=== PATIENT | female | born 1985 | race Caucasian/White ===

== ENCOUNTER 2021-02-23 20:47 | Inpatient (IN) | payer SELFPAY ==
[2021-02-23 21:00] VITALS: BP 132/70; PULSE 139; RESP 22; TEMP 36.8; O2SAT 96; BMI 23.0
--- NOTE | 2021-02-23 21:42 | ED_ITS ---
HPI - Abdominal Pain General: Chief Complaint: Abdominal Pain Stated Complaint: Adominal Pains, Vomiting Leg Pains Time Seen by Provider: 02/23/21 21:26 History of Present Illness: HPI narrative: Patient is a 35-year-old female comes to the ED with abdominal pain, nausea and vomiting. Patient says abdominal pain started approximately 3 days ago. Her nausea and vomiting got severe today and she was unable to keep any p.o. food or fluids down. The abdominal pain is located in the right and left upper part of the abdomen. The pain radiates to the middle of her back as well. She rates her pain currently a 10 out of 10. Denies any past surgical history of the abdomen. She does endorse being constipated and says that she has not had a bowel movement in approximately 3 to 4 days. Patient does admit to being a heavy alcohol drinker. Patient says she drinks approximately 1/5 of whiskey every 2 days. She says she has not had a drink of alcohol for approximately 2 days. Associated Symptoms: Reports constipation, nausea and vomiting; Denies chills, diarrhea, dysuria, fever(s), hematochezia and hematuria Review of Systems Const: Denies: fever(s), chills or fatigue Eyes: Denies: change in vision or eye discomfort ENMT: Denies: throat pain, odynophagia, nasal discharge or nasal congestion Card: Denies: chest pain, palpitations, edema, swelling of feet/ankles, dyspnea on exertion or orthopnea Resp: Denies: dyspnea, productive cough or non-productive cough GI: Reports: abdominal pain, nausea, vomiting and constipation; Denies: diarrhea or hematochezia : Denies: flank pain, dysuria or hematuria Musc: Denies: neck pain, back pain or extremity swelling Skin/Breast: Denies: rash or new lesions Neuro: Denies: headache(s), numbness in extremities or weakness in extremities PFSH ED PFSH: Medical History Alcohol abuse Surgical History No pertinent past surgical history Family History Brother Liver failure Social History Smoking and tobacco status: current every day smoker Alcohol intake: current Alcohol intake frequency: 3 or more drinks per day Alcohol type: hard liquor Substance/Drug Use: current Substance/Drug use type: Marijuana Household members: significant other Housing: House 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, [employer] Physical Exam Const: COMMON NORMALS: patient oriented x3 and alert GENERAL APPEARANCE: cooperative and ill appearing (Patient appears ill and had just had an episode of emesis when I enter the ) HENMT: COMMON NORMALS: normocephalic HEAD & SCALP: normocephalic MOUTH: Normal oral and palatal mucosa present THROAT: posterior oropharynx normal and uvula midline Eye: COMMON NORMALS: Equal, round and reactive pupils present PUPIL: Yes Equal, round and reactive pupils present Neck/C-Spine: COMMON NORMALS: supple GENERAL: Yes normal visual inspection Resp: COMMON NORMALS: normal respiratory effort, No retractions, No use of accessory muscles and clear to auscultation bilaterally AUSCULTATION: clear to auscultation bilaterally Cardio: COMMON NORMALS: regular rate, regular rhythm, S1 normal heart sound present, S2 normal heart sound present, No gallops present (Cardio), No clicks present (Cardio), No murmurs present (Cardio) and Peripheral pulses 2+ throughout RATE: regular rate RHYTHM: regular rhythm HEART SOUNDS: S1 normal heart sound present and S2 normal heart sound present PERIPHERAL PULSES: Peripheral pulses 2+ throughout GI: COMMON NORMALS: Normal to inspection, nondistended, normoactive bowel sounds present, Soft to palpation and no masses PALPATION: Yes Soft to palpation and Yes Tenderness to palpation present (GI) Details: LUQ and RUQ : BLADDER/KIDNEY EXAM: Yes CVA tenderness on the right (mild) Back/Pelvis: GENERAL BACK: Yes CVA tenderness Extremity: COMMON NORMALS: normal to inspection and no pedal edema Neuro: COMMON NORMALS: patient oriented x3 SENSORIUM/ORIENTATION: Yes alert GAIT: Yes Normal gait present Skin: GENERAL SKIN EXAM: dry skin Course Consultations: Consultation #1: I contacted Dr. Landeros and told him about patient case and he agreed to have patient admitted. Vital Signs: Vital signs: Vital Signs Temperature 97.3 F L 02/24/21 01:30 Pulse Rate 125 H 02/24/21 01:30 Respiratory Rate 20 H 02/24/21 01:30 Blood Pressure 143/99 02/24/21 01:30 Pulse Oximetry 97 02/24/21 01:30 MDM - Abdominal Pain MDM Narrative: Medical decision making narrative: Patient is a 35-year-old female comes to the ED with abdominal pain, nausea and vomiting. Patient has a history of alcohol abuse says she drinks about 1/5 of whiskey every 2 days. Abdominal pain is in the upper part of the abdomen and radiates to her back. Patient had a bicarb of 8 and an anion gap of 42.4. the rest of CBC and CMP were unremarkable. Lipase 4398. ABG showed a blood pH of 7.14 and bicarb of 14.3. CT of abdomen pelvis showed acute pancreatitis. Lactic of 1.9. Dr. Franklin was involved with patient case with me due to acuity. I contacted the hospitalist and told about patient case and patient was admitted. Dr. Franklin placed the admitting orders. Lab Data: Attestation: I reviewed the patient's lab results. Labs: Lab Results 02/23/21 02/23/21 02/23/21 Range/Units 21:33 21:38 21:38 WBC 8.2 (4.0-10.0) 10^3/ uL RBC 4.46 (4.1-5.3) 10^6/u L Hgb 16.3 H (11.5-15.3) g/dL Hct 50.6 H (37.0-47.0) % MCV 113.5 H (81-99) fL MCH 36.5 H (28.0-34.0) pg MCHC 32.2 (30.0-36.0) g/dL RDW 13.0 (12.1-15.1) % Plt Count 137 (130-400) 10^3/c mm MPV 11.6 H (7.4-10.4) fL Neut % (Auto) 82.4 % Lymph % (Auto) 7.0 % [place] % (Auto) 8.1 % Eos % (Auto) 0.0 % Baso % (Auto) 0.9 % Neut # (Auto) 6.75 (1.8-7.7) 10^3/u L Lymph # (Auto) 0.6 L (0.8-4.8) 10^3/u L [place] # (Auto) 0.7 (0.2-0.9) 10^3/u L Eos # (Auto) 0.0 (0.0-0.8) 10^3/u L Baso # (Auto) 0.1 (0.0-0.1) 10^3/u L Nucleated RBC % (a uto) 0 % Nucleated RBCs # 0.0 /100WBC Specimen Type Sample Site ABG pH (7.35-7.45) ABG pCO2 (35-45) mmHg ABG pO2 (80.0-100.0) mmH g ABG HCO3 (22-26) mmol/L ABG O2 Saturation ABG Base Excess (-2.0-2.0) mmol/ L Jonathan Test A-a O2 Gradient (5-10) mmHg Hematocrit (37-47) % Hgb O2 Saturation (95-100) % Carboxyhemoglobin (0.4-20.1) %THgb Methemoglobin (0.4-1.5) % Total Hemoglobin (12-16) g/dL Ionized Calcium (1.1-1.4) mmol/L O2 Delivery Device Artificial Stone Setter ID Sodium Cancelled Potassium Cancelled Chloride Cancelled Carbon Dioxide Cancelled Anion Gap Cancelled BUN Cancelled Creatinine Cancelled GFR Calculation Cancelled Glucose Cancelled Calculated Osmolal ity Cancelled Lactic Acid (0.5-2.2) mmol/L Calcium Cancelled Total Bilirubin Cancelled AST Cancelled ALT Cancelled Alkaline Phosphata se Cancelled Total Protein Cancelled Albumin Cancelled Globulin Cancelled Lipase Cancelled HCG, Qual Urine Color Yellow (Yellow) Urine Appearance Clear (CLEAR) Urine pH 5 (5-7) Ur Specific Gravit y 1.025 (1.005-1.030) Urine Protein 2+ H (Negative) Urine Glucose (UA) Norm (Normal) Urine Ketones 3+ H (Negative) Urine Blood 3+ H (Negative) Urine Nitrate Negative (Negative) Urine Bilirubin 1+ H (Negative) Urine Urobilinogen 1 H (Negative) mg/dL Ur Leukocyte Dina ase 1+ H (Negative) Urine RBC 0-4 H (0-2) /hpf Urine WBC 0-4 H (0-5) /hpf Ur Squamous Epith Cells 10-15 H (0-5) /hpf Amorphous Sediment Not Reportable Urine Bacteria 1+ H (NONE) /hpf Hyaline Casts 10-15 H /lpf Urine Mucus Trace /hpf Ethyl Alcohol (0-10) mg/dL Serum Ketones (Negative) 02/23/21 02/23/21 02/23/21 Range/Units 21:38 21:59 21:59 WBC (4.0-10.0) 10^3/ uL RBC (4.1-5.3) 10^6/u L Hgb (11.5-15.3) g/dL Hct (37.0-47.0) % MCV (81-99) fL MCH (28.0-34.0) pg MCHC (30.0-36.0) g/dL RDW (12.1-15.1) % Plt Count (130-400) 10^3/c mm MPV (7.4-10.4) fL Neut % (Auto) % Lymph % (Auto) % [place] % (Auto) % Eos % (Auto) % Baso % (Auto) % Neut # (Auto) (1.8-7.7) 10^3/u L Lymph # (Auto) (0.8-4.8) 10^3/u L [place] # (Auto) (0.2-0.9) 10^3/u L Eos # (Auto) (0.0-0.8) 10^3/u L Baso # (Auto) (0.0-0.1) 10^3/u L Nucleated RBC % (a uto) % Nucleated RBCs # /100WBC Specimen Type Sample Site ABG pH (7.35-7.45) ABG pCO2 (35-45) mmHg ABG pO2 (80.0-100.0) mmH g ABG HCO3 (22-26) mmol/L ABG O2 Saturation ABG Base Excess (-2.0-2.0) mmol/ L Jonathan Test A-a O2 Gradient (5-10) mmHg Hematocrit (37-47) % Hgb O2 Saturation (95-100) % Carboxyhemoglobin (0.4-20.1) %THgb Methemoglobin (0.4-1.5) % Total Hemoglobin (12-16) g/dL Ionized Calcium (1.1-1.4) mmol/L O2 Delivery Device Artificial Stone Setter ID Sodium 135 L Potassium 4.4 Chloride 89 L Carbon Dioxide 8 L* Anion Gap 42.4 H BUN 8 Creatinine 1.0 H GFR Calculation 62.7 L Glucose 91 Calculated Osmolal ity 278 L Lactic Acid (0.5-2.2) mmol/L Calcium 10.4 Total Bilirubin 1.3 H AST 130 H ALT 73 H Alkaline Phosphata se 74 Total Protein 8.6 Albumin 5.4 H Globulin 3.2 Lipase 4398 H HCG, Qual Cancelled Negative Urine Color (Yellow) Urine Appearance (CLEAR) Urine pH (5-7) Ur Specific Gravit y (1.005-1.030) Urine Protein (Negative) Urine Glucose (UA) (Normal) Urine Ketones (Negative) Urine Blood (Negative) Urine Nitrate (Negative) Urine Bilirubin (Negative) Urine Urobilinogen (Negative) mg/dL Ur Leukocyte Dina ase (Negative) Urine RBC (0-2) /hpf Urine WBC (0-5) /hpf Ur Squamous Epith Cells (0-5) /hpf Amorphous Sediment Urine Bacteria (NONE) /hpf Hyaline Casts /lpf Urine Mucus /hpf Ethyl Alcohol (0-10) mg/dL Serum Ketones (Negative) 02/23/21 02/23/21 02/23/21 Range/Units 21:59 21:59 22:40 WBC (4.0-10.0) 10^3/ uL RBC (4.1-5.3) 10^6/u L Hgb (11.5-15.3) g/dL Hct (37.0-47.0) % MCV (81-99) fL MCH (28.0-34.0) pg MCHC (30.0-36.0) g/dL RDW (12.1-15.1) % Plt Count (130-400) 10^3/c mm MPV (7.4-10.4) fL Neut % (Auto) % Lymph % (Auto) % [place] % (Auto) % Eos % (Auto) % Baso % (Auto) % Neut # (Auto) (1.8-7.7) 10^3/u L Lymph # (Auto) (0.8-4.8) 10^3/u L [place] # (Auto) (0.2-0.9) 10^3/u L Eos # (Auto) (0.0-0.8) 10^3/u L Baso # (Auto) (0.0-0.1) 10^3/u L Nucleated RBC % (a uto) % Nucleated RBCs # /100WBC Specimen Type Arterial Sample Site Radial, right ABG pH 7.14 L* (7.35-7.45) ABG pCO2 14.3 L* (35-45) mmHg ABG pO2 122.0 H (80.0-100.0) mmH g ABG HCO3 4.9 L (22-26) mmol/L ABG O2 Saturation 98.4 ABG Base Excess -21.8 L (-2.0-2.0) mmol/ L Jonathan Test Pos A-a O2 Gradient 0.9 L (5-10) mmHg Hematocrit 42.2 (37-47) % Hgb O2 Saturation 96.9 (95-100) % Carboxyhemoglobin 0.8 (0.4-20.1) %THgb Methemoglobin 0.7 (0.4-1.5) % Total Hemoglobin 13.8 (12-16) g/dL Ionized Calcium 1.3 (1.1-1.4) mmol/L O2 Delivery Device Room air Artificial Stone Setter ID [place] Sodium 140.0 Potassium 4.4 Chloride Carbon Dioxide Anion Gap BUN Creatinine GFR Calculation Glucose 86.0 Calculated Osmolal ity Lactic Acid (0.5-2.2) mmol/L Calcium Total Bilirubin AST ALT Alkaline Phosphata se Total Protein Albumin Globulin Lipase HCG, Qual Urine Color (Yellow) Urine Appearance (CLEAR) Urine pH (5-7) Ur Specific Gravit y (1.005-1.030) Urine Protein (Negative) Urine Glucose (UA) (Normal) Urine Ketones (Negative) Urine Blood (Negative) Urine Nitrate (Negative) Urine Bilirubin (Negative) Urine Urobilinogen (Negative) mg/dL Ur Leukocyte Dina ase (Negative) Urine RBC (0-2) /hpf Urine WBC (0-5) /hpf Ur Squamous Epith Cells (0-5) /hpf Amorphous Sediment Urine Bacteria (NONE) /hpf Hyaline Casts /lpf Urine Mucus /hpf Ethyl Alcohol < 10 (0-10) mg/dL Serum Ketones Positive H (Negative) 02/23/21 Range/Units 23:14 WBC (4.0-10.0) 10^3/ uL RBC (4.1-5.3) 10^6/u L Hgb (11.5-15.3) g/dL Hct (37.0-47.0) % MCV (81-99) fL MCH (28.0-34.0) pg MCHC (30.0-36.0) g/dL RDW (12.1-15.1) % Plt Count (130-400) 10^3/c mm MPV (7.4-10.4) fL Neut % (Auto) % Lymph % (Auto) % [place] % (Auto) % Eos % (Auto) % Baso % (Auto) % Neut # (Auto) (1.8-7.7) 10^3/u L Lymph # (Auto) (0.8-4.8) 10^3/u L [place] # (Auto) (0.2-0.9) 10^3/u L Eos # (Auto) (0.0-0.8) 10^3/u L Baso # (Auto) (0.0-0.1) 10^3/u L Nucleated RBC % (a uto) % Nucleated RBCs # /100WBC Specimen Type Sample Site ABG pH (7.35-7.45) ABG pCO2 (35-45) mmHg ABG pO2 (80.0-100.0) mmH g ABG HCO3 (22-26) mmol/L ABG O2 Saturation ABG Base Excess (-2.0-2.0) mmol/ L Jonathan Test A-a O2 Gradient (5-10) mmHg Hematocrit (37-47) % Hgb O2 Saturation (95-100) % Carboxyhemoglobin (0.4-20.1) %THgb Methemoglobin (0.4-1.5) % Total Hemoglobin (12-16) g/dL Ionized Calcium (1.1-1.4) mmol/L O2 Delivery Device Artificial Stone Setter ID Sodium Potassium Chloride Carbon Dioxide Anion Gap BUN Creatinine GFR Calculation Glucose Calculated Osmolal ity Lactic Acid 1.9 (0.5-2.2) mmol/L Calcium Total Bilirubin AST ALT Alkaline Phosphata se Total Protein Albumin Globulin Lipase HCG, Qual Urine Color (Yellow) Urine Appearance (CLEAR) Urine pH (5-7) Ur Specific Gravit y (1.005-1.030) Urine Protein (Negative) Urine Glucose (UA) (Normal) Urine Ketones (Negative) Urine Blood (Negative) Urine Nitrate (Negative) Urine Bilirubin (Negative) Urine Urobilinogen (Negative) mg/dL Ur Leukocyte Dina ase (Negative) Urine RBC (0-2) /hpf Urine WBC (0-5) /hpf Ur Squamous Epith Cells (0-5) /hpf Amorphous Sediment Urine Bacteria (NONE) /hpf Hyaline Casts /lpf Urine Mucus /hpf Ethyl Alcohol (0-10) mg/dL Serum Ketones (Negative) Imaging Data ^: CT Abd/Pel: Attestation: I personally reviewed and interpreted this imaging study as follows: Radiologist's impression: [facility] [place] [address] CT Scan Report Signed Patient: Raquel Govea Unit #: [id number] : 1985 Age/Sex: 35 / F ADM Date: 02/23/21 Loc: ER Room/Bed: Attending Dr: Ordering Provider/Ordering MD: London León Date of Service: 02/23/21 Procedure(s): CT abdomen pelvis w con* [id number] Accession Number(s): [id number] Report Number: [id number] PROCEDURE INFORMATION: Exam: CT Abdomen And Pelvis With Contrast Exam date and time: 02/23/2021 9:49 PM Age: 35 years old Clinical indication: Constipation and nausea and vomiting; Abdominal pain; Localized; Upper; Additional info: Upper abdominal pain with nausea vomiting, constipation TECHNIQUE: Imaging protocol: Computed tomography of the abdomen and pelvis with contrast. Axial, coronal and sagittal reformatted images were created and reviewed. Radiation optimization: All CT scans at this facility use at least one of these dose optimization techniques: automated exposure control; mA and/or kV adjustment per patient size (includes targeted exams where dose is matched to clinical indication); or iterative reconstruction. Contrast material: OMNI 300; Contrast volume: 75 ml; Contrast route: INTRAVENOUS (IV); COMPARISON: No relevant prior studies available. RADIATION DOSE METRICS: Total DLP (mGy-cm): 929.81 FINDINGS: Liver: Diffuse hepatic steatosis. Gallbladder and bile ducts: No radiodense gallstones. No biliary ductal dilatation. Pancreas: Moderate peripancreatic stranding, edema and fluid. No necrosis or hemorrhage. Spleen: Unremarkable. Adrenal glands: Normal. No mass. Kidneys and ureters: No mass. No radiodense calculi. No hydronephrosis. Stomach and bowel: No bowel wall thickening. No obstruction. No pneumatosis. Appendix: Normal. Intraperitoneal space: No free fluid. No organized fluid collection. No free air. Vasculature: Unremarkable. No aneurysm. Lymph nodes: No pathologically enlarged lymph nodes. Urinary bladder: Unremarkable as visualized. Reproductive: Probable involuting left ovarian corpus luteal cyst. Bones/joints: No acute osseous abnormality. Soft tissues: Unremarkable. CT/CT abdomen pelvis w con* [id number] IMPRESSION: 1. Acute pancreatitis, as described above. Correlate with serum amylase and lipase levels. No drainable fluid collection. No necrosis or hemorrhage. 2. Additional findings, as above. Radiation Dose CTDIVOL = (mGy): DLP = 929.81 (mGy-cm) Dictated By: Spenser Rollins MD Signed By: Spenser Rollins MD Signed Date/Time: 02/23/212313 DD/ 11 Discharge Plan Discharge Patient Disposition: Admitted As Inpatient Admit Provider: Renetta Landeros Coding Level of Care Code ED Florist for Chg Fwd Exam Comprehensive
[2021-02-23 21:46] LABS: Basophils # 0.1 10^3/uL (0.0-0.1); Basophils % 0.9 %; Hematocrit 50.6 % (37.0-47.0); Hemoglobin 16.3 g/dL (11.5-15.3); Lymphocytes # 0.6 10^3/uL (0.8-4.8); Mean Corpuscular HGB Conc 32.2 g/dL (30.0-36.0); Mean Corpuscular Hemoglobin 36.5 pg (28.0-34.0); Mean Corpuscular Volume 113.5 fL (81-99); Mean Platelet Volume 11.6 fL (7.4-10.4); Monocytes # 0.7 10^3/uL (0.2-0.9); Monocytes % 8.1 %; Neutrophils # 6.75 10^3/uL (1.8-7.7); Neutrophils % 82.4 %; Nucleated Red Blood Cells % 0 %; Platelet Count 137 10^3/cmm (130-400); Red Blood Count 4.46 10^6/uL (4.1-5.3); White Blood Count 8.2 10^3/uL (4.0-10.0)
--- NOTE | 2021-02-23 21:49 | CTR_ITS ---
PROCEDURE INFORMATION: Exam: CT Abdomen And Pelvis With Contrast Exam date and time: 02/23/2021 9:49 PM Age: 35 years old Clinical indication: Constipation and nausea and vomiting; Abdominal pain; Localized; Upper; Additional info: Upper abdominal pain with nausea vomiting, constipation TECHNIQUE: Imaging protocol: Computed tomography of the abdomen and pelvis with contrast. Axial, coronal and sagittal reformatted images were created and reviewed. Radiation optimization: All CT scans at this facility use at least one of these dose optimization techniques: automated exposure control; mA and/or kV adjustment per patient size (includes targeted exams where dose is matched to clinical indication); or iterative reconstruction. Contrast material: OMNI 300; Contrast volume: 75 ml; Contrast route: INTRAVENOUS (IV); COMPARISON: No relevant prior studies available. RADIATION DOSE METRICS: Total DLP (mGy-cm): 929.81 FINDINGS: Liver: Diffuse hepatic steatosis. Gallbladder and bile ducts: No radiodense gallstones. No biliary ductal dilatation. Pancreas: Moderate peripancreatic stranding, edema and fluid. No necrosis or hemorrhage. Spleen: Unremarkable. Adrenal glands: Normal. No mass. Kidneys and ureters: No mass. No radiodense calculi. No hydronephrosis. Stomach and bowel: No bowel wall thickening. No obstruction. No pneumatosis. Appendix: Normal. Intraperitoneal space: No free fluid. No organized fluid collection. No free air. Vasculature: Unremarkable. No aneurysm. Lymph nodes: No pathologically enlarged lymph nodes. Urinary bladder: Unremarkable as visualized. Reproductive: Probable involuting left ovarian corpus luteal cyst. Bones/joints: No acute osseous abnormality. Soft tissues: Unremarkable. CT/CT abdomen pelvis w con* [id number] IMPRESSION: 1. Acute pancreatitis, as described above. Correlate with serum amylase and lipase levels. No drainable fluid collection. No necrosis or hemorrhage. 2. Additional findings, as above. Radiation Dose CTDIVOL = (mGy): DLP = 929.81 (mGy-cm)
[2021-02-23 21:59] LABS: Add Urine Culture? No; Add Urine Microscopic? YES; Bacteria Urine 1+ /hpf; Bilirubin Urine 1+ (Negative); Blood Urine 3+ (Negative); Glucose Urine UA Norm (Normal); Ketones Urine 3+ (Negative); Leukocyte Esterase Urine 1+ (Negative); Mucus Urine TRACE /hpf; Nitrate Urine Negative (Negative); Protein Urine 2+ (Negative); RBC Urine 0-4 /hpf (0-2); Specific Gravity, Urine 1.025 (1.005-1.030); Urine Appearance Clear (CLEAR); Urine Color Yellow (Yellow); Urobilinogen Urine 1 mg/dL (Negative); WBC Urine 0-4 /hpf (0-5); pH Urine 5 (5-7)
[2021-02-23] MEDS: sodium chloride 0.9% 1,000 ML 999 ML IV ×2 (21:59→22:57)
[2021-02-23] MEDS: ondansetron 2 mg/ML SDV 2 mL 4 MG IVP (21:59)
[2021-02-23 22:01] VITALS: RESP 22
[2021-02-23] MEDS: morphine 4 mg/mL SDV 1 mL IVP ×2 (22:01→23:05)
[2021-02-23 22:17] LABS: HCG, Serum Qual Negative (Negative)
[2021-02-23 22:25] LABS: Alanine Aminotransferase 73 U/L (0-33); Albumin Level 5.4 g/dL (3.5-5.2); Alkaline Phosphatase 74 IU/L (35-105); Anion Gap 42.4 (5-19); Aspartate Amino Transferase 130 U/L (0-32); Blood Urea Nitrogen 8 mg/dL (6-20); Calcium 10.4 mg/dL (8.5-10.5); Chloride 89 mmol/L (98-107); Globulin 3.2 g/dL (1.3-4.6); Glomerular Filtration Rate 62.7 mL/min (90-130); Glucose 91 mg/dL (65-115); Osmolality Calculated 278 mOsm/kg (285-295); Potassium 4.4 mmol/L (3.5-5.1); Sodium 135 mmol/L (136-145); Total Bilirubin 1.3 mg/dL (0.15-1.2); Total Protein 8.6 g/dL (6.6-8.7)
[2021-02-23 22:29] LABS: Carbon Dioxide 8 mmol/L (22-29)
[2021-02-23] MEDS: iohexol 300 mg/mL 100 mL Btl IV (22:34)
[2021-02-23 22:40] LABS: Lipase 4398 U/L (13-60)
[2021-02-23 22:47] LABS: Alveolar-Arterial Oxygen Gradi 0.9 mmHg (5-10); Arterial Blood Gas Hematocrit 42.2 % (37-47); Base Excess ABG -21.8 mmol/L (-2.0-2.0); Blood Gas Allen Test Pos; Blood Gas Sample Site Radial, right; Blood Gas Sample Type Arterial; Carboxyhemoglobin 0.8 %THgb (0.4-20.1); HCO3 ABG 4.9 mmol/L (22-26); HGB O2 Sat 96.9 % (95-100); Ionized Calcium Level - ABG 1.3 mmol/L (1.1-1.4); Methemoglobin 0.7 % (0.4-1.5); Oxygen Device ROOM AIR; Oxygen Saturation ABG 98.4; Potassium Level - ABG 4.4 mmol/L (3.5-5.0); Total Hemoglobin 13.8 g/dL (12-16)
[2021-02-23 22:48] LABS: ABG PCO2 14.3 mmHg (35-45); ABG PH Result 7.14 (7.35-7.45)
[2021-02-23 23:00] VITALS: BP 162/114; PULSE 102; O2SAT 100
[2021-02-23] MEDS: metoclopramide 5 mg/mL SDV 2 mL 10 MG IVP (23:02)
[2021-02-23 23:05] VITALS: RESP 20
[2021-02-23] MEDS: LORazepam 2 mg/mL INJ 1 mL 1 MG IVP (23:09)
[2021-02-23 23:32] LABS: Lactic Sepsis W/Reflex 1.9 mmol/L (0.5-2.2)
[2021-02-23 23:45] VITALS: BP 137/99; PULSE 107; O2SAT 97
[2021-02-24] VITALS (12 sets, daily range): BP systolic 119–146; BP diastolic 75–99; PULSE 92–125; RESP 16–20; TEMP 36.3–37; O2SAT 95–97
--- NOTE | 2021-02-24 00:03 | PM.HP ---
Providers/Chief Complaint Chief Complaint: Adominal Pains, Vomiting Leg Pains History of Present Illness Raquel Govea is a 35 year old female who does not have significant past medical history presented today with chief complaint of recurrent nausea and vomiting. Patient is stating that she drinks hard liquor/whiskey, 1/5 of the bottle every other night. She has experienced alcohol withdrawal symptoms in the past. She is endorsing family history of alcohol abuse, her brother is suffering from alcohol induced liver failure. She recently moved from [place] to live with her boyfriend, she smokes and does marijuana occasionally. She is endorsing abdominal pain in mid epigastric region and recurrent emesis. She has not been able to eat in last 72 hours. Diagnostics in the ER revealed pancreatitis evident on CT scan with high lipase enzymes on laboratory work-up no hypocalcemia or high BUN noted, no signs of sepsis Review of Systems Const: Reports: body aches and fatigue; Denies: fever(s) Eyes: Denies: change in vision ENMT: Denies: throat pain Card: Denies: chest pain Resp: Denies: dyspnea GI: Reports: abdominal pain, nausea, vomiting and constipation; Denies: dysphagia : Denies: flank pain Musc: Denies: neck pain Skin/Breast: Denies: rash Neuro: Denies: headache(s) Psych: Denies: anxiety Endo: Denies: polyuria Tho/Lymph: Denies: easy bruising All/Imm: Denies: urticaria Medications/Allergies Allergies Allergy/AdvReac Type Severity Reaction Status Date / Time No Known Allergies Allergy Verified 02/23/21 21:07 PFSH Acute PFSH: Medical History Alcohol abuse Surgical History (Updated 02/24/21 @ 01:42 by Renetta Landeros MD) No pertinent past surgical history Family History (Updated 02/24/21 @ 01:43 by Renetta Landeros MD) Brother Liver failure Social History (Updated 02/24/21 @ 01:43 by Renetta Landeros MD) Smoking and tobacco status: current every day smoker Alcohol intake: current Alcohol intake frequency: 3 or more drinks per day Alcohol type: hard liquor Substance/Drug Use: current Substance/Drug use type: Marijuana Household members: significant other Housing: House 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, [employer]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 Vitals/I&O/Wt Last Vital Signs Temp 98.2 F 02/23/21 21:00 Pulse 139 H 02/23/21 21:00 Resp 20 H 02/23/21 23:05 BP 132/70 02/23/21 21:00 Pulse Ox 96 02/23/21 21:00 02/23/21 02/23/21 02/24/21 14:59 22:59 06:59 Intake Total 1000 / 1000 Balance 1000 / 1000 Weight last 48 hrs Weight 57.153 kg Physical Exam Narrative: EXAM NARRATIVE: Young male currently laying comfortably in her bed complaining of midepigastric иван pain asking for ice chips S1, S2 Epigastric tenderness on deep palpation Lower extremity no edema Clinically looks dehydrated Looks lethargic and fatigued EOMI, PERRLA No neurological deficit No joint swelling No sign of cellulitis No acute respite distress no audible stridor or wheezing Data : 02/23/21 21:38 02/23/21 21:59 A&P Assessment and plan (1) Alcohol abuse: Status: Inactive (2) Pancreatitis: Status: Acute (3) Metabolic acidosis: Status: Acute Additional A&P Information Alcohol induced pancreatitis Severe metabolic acidosis secondary to starvation ketosis Monitor for electrolyte abnormality for refeeding syndrome Lipase 4300 I will give her second amp of bicarb N.p.o. Lactated Ringer Dilaudid for analgesia CIWA protocol DVT prophylaxis low risk for DVT, would use SCDs Full code Attestations Medical Necessity Statement*: Anticipating stay in the hospital cross more than 2 midnights for pancreatitis management and alcohol withdrawal Time Spent in Patient Care: (>than 50% of time spent in counselling and/or direct pt care on unit). 30mins Coding Level of Care Code Acute Internet Marketing Analyst for Kamron Dietrich Diagnoses Alcohol abuse F10.10 Pancreatitis K85.90 Metabolic acidosis E87.2
[2021-02-24 00:15] LABS: Ketone (Acetest) Serum Positive (Negative)
[2021-02-24 00:18] LABS: Alcohol Level < 10 mg/dL (0-10)
[2021-02-24] MEDS: dextrose 5%-lactated ringers 1,000 ML 100 ML IV (02:04)
[2021-02-24 03:22] LABS: Amphetamines Screen Urine Negative (Negative); Barbiturates Screen Urine Negative (Negative); Benzodiazepines Screen Urine Negative (Negative); Cocaine Screen Urine Negative (Negative); Opiate Screen Urine Positive (Negative); PCP Screen Urine Negative (Negative); THC Screen Urine Positive (Negative)
[2021-02-24] MEDS: HYDROmorphone 1 mg/mL INJ 1 mL 0.5 MG IVP ×4 (03:42→19:46)
[2021-02-24 06:18] LABS: Basophils % 0.4 %; Hemoglobin 13.4 g/dL (11.5-15.3); Lymphocytes # 0.3 10^3/uL (0.8-4.8); Lymphocytes % 6.4 %; Mean Corpuscular HGB Conc 32.7 g/dL (30.0-36.0); Mean Corpuscular Hemoglobin 36.6 pg (28.0-34.0); Mean Platelet Volume 11.7 fL (7.4-10.4); Monocytes # 0.4 10^3/uL (0.2-0.9); Monocytes % 7.9 %; Neutrophils % 84.2 %; Nucleated Red Blood Cells % 0 %; Platelet Count 83 10^3/cmm (130-400); Red Blood Count 3.66 10^6/uL (4.1-5.3); Red Cell Distribution Width 12.9 % (12.1-15.1); White Blood Count 5.3 10^3/uL (4.0-10.0)
[2021-02-24 06:36] LABS: Alanine Aminotransferase 48 U/L (0-33); Albumin Level 4.2 g/dL (3.5-5.2); Alkaline Phosphatase 52 IU/L (35-105); Anion Gap 26.6 (5-19); Aspartate Amino Transferase 89 U/L (0-32); Blood Urea Nitrogen 6 mg/dL (6-20); Calcium 8.5 mg/dL (8.5-10.5); Carbon Dioxide 14 mmol/L (22-29); Chloride 101 mmol/L (98-107); Globulin 2.9 g/dL (1.3-4.6); Glomerular Filtration Rate 81.2 mL/min (90-130); Glucose 181 mg/dL (65-115); Magnesium 2.1 mg/dL (1.7-2.3); Osmolality Calculated 286 mOsm/kg (285-295); Phosphorus 1.5 mg/dL (2.5-4.5); Potassium 4.6 mmol/L (3.5-5.1); Sodium 137 mmol/L (136-145); Total Bilirubin 0.9 mg/dL (0.15-1.2); Total Protein 7.1 g/dL (6.6-8.7)
[2021-02-24] MEDS: multivitamin therapeutic Tablet 1 TAB PO (08:16)
[2021-02-24] MEDS: folic acid 1 mg Tablet PO (08:16)
[2021-02-24] MEDS: thiamine 100 mg Tablet PO (08:16)
--- NOTE | 2021-02-24 10:49 | PC.CHAP ---
Pastoral Care Encounter/Spiritual Assessment Type of Contact [] Declined compliance aide visit [] Patient/Family/Request visit [] Outpatient visit [] Follow-up visit [] Physician referral [] Code/Alert [x] Routine visit [] Staff referral [] Actively dying [x] Patient sleeping [] Family support [] [] Out of room [] Palliative care [] [] Receiving care in room [] Pre-surgical visit [] Trauma [] Long length of stay [] ICU visit [] Other: Relational/Emotional Strength [] Patient feels connected with others/family/visitors/staff [] Distress [] Loneliness/isolation [] Abandonment Spirituality of Patient [] Person of [place] [] Attends Pentecostal of their [place] [] Believes in Prayer [] Reads Bible or Yarsanism materials [] There are Spiritual issues to be addressed Donkey Doctor Interventions [] Prayer [] Active listening [] Non-anxious presence [] Spiritual/emotional support [] Crisis/trauma care [] Spiritual counseling [] Bereavement support [] Provided bereavement packet [] Provided Bible/devotional materials [] Provided toy/stuffed animal, coloring book to patient or family member [] Provided Communion [] Anointing/[place] [] Salvation [] Completed spiritual assessment [] Other: Impact on Illness or Injury [] Angry [] Fearful [] Anxious [] Often cries [] Exhaustion [] Unable to work [] Unable to attend buddhist [] Unable to walk/stand [] Unable to read [] Unable to drive [] Unable to eat/drink [] Unable to sleep [] Unable to be with family [] Patient intubated [] Other: Summary Time spent with patient
--- NOTE | 2021-02-24 12:53 | P.PN_ITS ---
Subjective Subjective: Interval history: 35-year-old female with a past medical history significant for alcohol abuseWho presented to the hospital with mid epigastric pain, nausea and vomiting.Laboratory work upon arrival showed a WBC of 8.2, hemoglobin of 16.3, hematocrit of 50.6 and platelet count of 137. Sodium 135, potassium 4.4, chloride 89, bicarb 8, BUN 8 and creatinine of 1.0. Lactic acid of 1.9. AST of 130, ALT of 73, total bilirubin of 1.3 and alkaline phosphatase of 74. Lipase was elevated at 4398. Urinalysis showed 3+ ketones, 3+ blood, 1+ leukocyte esterase. Urinary drug screen was positive for opioids and marijuana.CT abdomen pelvis showed moderate joe pancreatic stranding, edema and fluid suggestive of acute pancreatitis.Patient was started on D5 with LR at 100 cc/hour after multiple normal saline boluses, folic acid 1 mg daily and thiamine 100 mg daily. Addition was placed on alcohol withdrawal protocol. Was kept NPO. 02/24/2021 Patient was complaining of mild epigastric pain which had improved however still requiring IV pain meds. Noted mild nausea however no emesis today. No fever or chills overnight. Denies chest pain and shortness of breath. Medications: Reviewed: Yes Vitals/I&O/Wt Last Vital Signs Temp 97.8 F 02/24/21 11:18 Pulse 99 02/24/21 11:18 Resp 18 02/24/21 11:18 BP 134/83 02/24/21 11:18 Pulse Ox 97 02/24/21 11:18 02/23/21 02/24/21 02/24/21 22:59 06:59 14:59 Intake Total 1000 / 1000 1060 / 2060 Output Total 400 / 400 Balance 1000 / 1000 660 / 1660 Weight last 48 hrs Weight 57.153 kg Physical Exam Narrative: EXAM NARRATIVE: General :Awake, alert and oriented x3 HEENT: Grossly unremarkable CVS: RRR Chest: CTABL Abd: Soft, mid-epigastric tenderness Ext : No edema , FROM x 4. No gait abnormality Data : 02/24/21 05:11 02/24/21 05:11 A&P Assessment and plan (1) Acute alcoholic pancreatitis: Status: Acute (2) Alcoholic ketoacidosis: Status: Acute (3) Alcoholism: Status: Acute (4) Transaminitis: Status: Acute (5) Thrombocytopenia: Status: Acute Acute alcoholic pancreatitis Lipase 4398 CT abd/pelvis -mod peripancreatic stranding, edema, fluid Continue IV fluid - change to NS at 125cc/hr Repeat CMP, lipase in a.m. Remain NPO Dilaudid 0.5 mg IV q.4 hours Alcoholic ketoacidosis Continue IVF Repeat BMP in am Alcoholism Risk for withdrawals On CIWA/Ativan Protocol Folate 1 mg PO daily Thiamine 100 mg PO daily MV 1 tab PO daily Transaminitis probable alcoholic liver disease AST - 130 ALT - 73 ALP - 74 Thrombocytopenia Platelets - 137 - 83 Likely due to liver disease Bleeding precautions CBC in am GI ppx Pepcid 20mg IV BID DVT ppx SCDS Attestations 2 Medical Necessity Statement*: Require further hospitalization for management of Acute pancreatitis and alcohol withdrawals Time Spent in Patient Care: Greater than 35 minutes (>than 50% of time spent in counselling and/or direct pt care on unit) . Coding Level of Care Code Acute Guide for Kamron Dietrich Diagnoses Acute alcoholic pancreatitis K85.20 Alcoholic ketoacidosis E87.2 Alcoholism F10.20 Transaminitis R74.01 Thrombocytopenia D69.6
[2021-02-24] MEDS: famotidine 20 mg/2 mL INJ IVP (13:16)
[2021-02-24] MEDS: sodium chloride 0.9% 1,000 ML 125 ML IV ×2 (13:17→20:20)
[2021-02-24 13:19] LABS: Estmated Average Glucose 88; Hemoglobin A1C 4.7 % (4.0-6.0)
--- NOTE | 2021-02-24 18:57 | PC.NURSE ---
Report to Sonu COUGHLIN at this time.
[2021-02-25] VITALS (9 sets, daily range): BP systolic 131–157; BP diastolic 83–99; PULSE 84–98; RESP 17–18; TEMP 36.4–36.9; O2SAT 95–97
[2021-02-25] MEDS: HYDROmorphone 1 mg/mL INJ 1 mL 0.5 MG IVP ×3 (01:19→13:45)
[2021-02-25] MEDS: famotidine 20 mg/2 mL INJ IVP ×2 (01:19→13:45)
[2021-02-25] MEDS: sodium chloride 0.9% 1,000 ML 125 ML IV ×3 (04:20→20:48)
[2021-02-25] MEDS: folic acid 1 mg Tablet PO (08:24)
[2021-02-25] MEDS: multivitamin therapeutic Tablet 1 TAB PO (08:24)
[2021-02-25] MEDS: thiamine 100 mg Tablet PO (08:24)
--- NOTE | 2021-02-25 13:43 | PM.PN ---
Subjective Subjective: Interval history: 35-year-old female with a past medical history significant for alcohol abuseWho presented to the hospital with mid epigastric pain, nausea and vomiting.Laboratory work upon arrival showed a WBC of 8.2, hemoglobin of 16.3, hematocrit of 50.6 and platelet count of 137. Sodium 135, potassium 4.4, chloride 89, bicarb 8, BUN 8 and creatinine of 1.0. Lactic acid of 1.9. AST of 130, ALT of 73, total bilirubin of 1.3 and alkaline phosphatase of 74. Lipase was elevated at 4398. Urinalysis showed 3+ ketones, 3+ blood, 1+ leukocyte esterase. Urinary drug screen was positive for opioids and marijuana.CT abdomen pelvis showed moderate joe pancreatic stranding, edema and fluid suggestive of acute pancreatitis.Patient was started on D5 with LR at 100 cc/hour after multiple normal saline boluses, folic acid 1 mg daily and thiamine 100 mg daily. Addition was placed on alcohol withdrawal protocol. Was kept NPO. 02/24/2021 Patient was complaining of mild epigastric pain which had improved however still requiring IV pain meds. Noted mild nausea however no emesis today. No fever or chills overnight. Denies chest pain and shortness of breath. 02/25/2021 Noted improvement in abdominal pain, wanting to advance diet. Medications: Reviewed: Yes Vitals/I&O/Wt Last Vital Signs Temp 98.4 F 02/25/21 11:19 Pulse 87 02/25/21 11:19 Resp 18 02/25/21 11:19 BP 157/97 02/25/21 11:19 Pulse Ox 97 02/25/21 11:19 02/24/21 02/25/21 02/25/21 22:59 06:59 14:59 Intake Total 881.25 / 881.25 112 Balance 881.25 / 881.25 1119 Weight last 48 hrs Weight 57.153 kg Physical Exam Narrative: EXAM NARRATIVE: General :Awake, alert and oriented x3 HEENT: Grossly unremarkable CVS: RRR Chest: CTABL Abd: Soft, mid-epigastric tenderness - improved. Ext : No edema , FROM x 4. No gait abnormality Data : 02/24/21 05:11 02/24/21 05:11 A&P Assessment and plan (1) Acute alcoholic pancreatitis: Status: Acute (2) Alcoholic ketoacidosis: Status: Acute (3) Alcoholism: Status: Acute (4) Transaminitis: Status: Acute (5) Thrombocytopenia: Status: Acute Acute alcoholic pancreatitis Lipase 4398 CT abd/pelvis -mod peripancreatic stranding, edema, fluid NS at 125cc/hr Advance to CLD D/C Dilaudid 0.5 mg IV q.4 hours Repeat lipase in am Alcoholic ketoacidosis Continue IVF Repeat BMP in am Alcoholism Risk for withdrawals On CIWA/Ativan Protocol Folate 1 mg PO daily Thiamine 100 mg PO daily MV 1 tab PO daily Transaminitis probable alcoholic liver disease AST - 130 ALT - 73 ALP - 74 CMP in am Thrombocytopenia Platelets - 137 - 83 Likely due to liver disease Bleeding precautions CBC in am GI ppx Pepcid 20mg IV BID DVT ppx SCDS Attestations Medical Necessity Statement*: will require further hospitalization for management of pancreatitis Time Spent in Patient Care: Greater than 35 minutes (>than 50% of time spent in counselling and/or direct pt care on unit). Coding Level of Care Code Acute Mailroom Assistant for g Fwd Diagnoses Acute alcoholic pancreatitis K85.20 Alcoholic ketoacidosis E87.2 Alcoholism F10.20 Transaminitis R74.01 Thrombocytopenia D69.6
[2021-02-25] MEDS: HYDROcodone-acetaminophen 5-325 mg Tablet 1 TAB PO ×2 (18:15→22:29)
--- NOTE | 2021-02-25 19:04 | PC.NURSE ---
[facility]
[2021-02-26] VITALS: BP 133/86; PULSE 75; RESP 17; TEMP 36.6; O2SAT 94
[2021-02-26] MEDS: famotidine 20 mg/2 mL INJ IVP (02:09)
[2021-02-26] MEDS: HYDROcodone-acetaminophen 5-325 mg Tablet 1 TAB PO ×2 (03:01→08:40)
[2021-02-26 04:00] VITALS: BP 148/90; PULSE 68; RESP 17; TEMP 36.8; O2SAT 96
[2021-02-26] MEDS: sodium chloride 0.9% 1,000 ML 125 ML IV (04:29)
--- NOTE | 2021-02-26 05:57 | PC.NURSE ---
SHIFT SUMMARY Has had a good night. Medicated X2 with po Hydrocodone for c/o pain across upper abdomen. Some tenderness remains in upper abdomen. Has denied any nausea with liquid diet and is really wanting to eat this morning. IV fluids infusing at 125ml/hr rate. Is hoping to go home today.
[2021-02-26 08:00] VITALS: BP 160/92; PULSE 69; RESP 17; TEMP 36.7; O2SAT 96
[2021-02-26] MEDS: folic acid 1 mg Tablet PO (08:40)
[2021-02-26] MEDS: thiamine 100 mg Tablet PO (08:40)
[2021-02-26] MEDS: multivitamin therapeutic Tablet 1 TAB PO (08:40)
[2021-02-26 11:45] VITALS: BP 160/92; PULSE 69; RESP 17; TEMP 36.7; O2SAT 96
--- NOTE | 2021-02-26 20:20 | P.DS_ITS ---
Discharge Providers Date of Admission: 02/24/21 00:00 Date of Discharge: February 26, 2021 Attending Provider at Admission: Renetta Landeros MD Attending Provider at Discharge: Magaly Darden Diagnoses at Discharge Discharge Diagnosis (1) Acute alcoholic pancreatitis: Status: Acute (2) Alcoholic ketoacidosis: Status: Acute (3) Alcoholism: Status: Acute (4) Transaminitis: Status: Acute (5) Thrombocytopenia: Status: Acute Reason for Visit Reason for Visit: Adominal Pains, Vomiting Leg Pains Hospital Course Hospital Course 35-year-old female with a past medical history significant for alcohol abuseWho presented to the hospital with mid epigastric pain, nausea and vomiting.Laboratory work upon arrival showed a WBC of 8.2, hemoglobin of 16.3, hematocrit of 50.6 and platelet count of 137. Sodium 135, potassium 4.4, chloride 89, bicarb 8, BUN 8 and creatinine of 1.0. Lactic acid of 1.9. AST of 130, ALT of 73, total bilirubin of 1.3 and alkaline phosphatase of 74. Lipase was elevated at 4398. Urinalysis showed 3+ ketones, 3+ blood, 1+ leukocyte esterase. Urinary drug screen was positive for opioids and marijuana.CT abdomen pelvis showed moderate joe pancreatic stranding, edema and fluid suggestive of acute pancreatitis.Patient was started on D5 with LR at 100 cc/hour after multiple normal saline boluses, folic acid 1 mg daily and thiamine 100 mg daily. Addition was placed on alcohol withdrawal protocol. Diet was slowly advanced. Pain had resolved at which point she was discharged home. Alcohol cessation counseling. Physical Exam Narrative: EXAM NARRATIVE: General :Awake, alert and oriented x3 HEENT: Grossly unremarkable CVS: RRR Chest: CTABL Abd: Soft, NT, ND Ext : No edema , FROM x 4. No gait abnormality Discharge Data Data Completed and Pending: Completed Studies During Hospitalization Category Date Time Status CT abdomen pelvis w con* [id number] Urge nt Cat Scan 02/23/21 21:49 Completed Vitals: Last Vital Signs Temp 98.0 F 02/26/21 11:45 Pulse 69 02/26/21 11:45 Resp 17 02/26/21 11:45 BP 160/92 02/26/21 11:45 Pulse Ox 96 02/26/21 11:45 Discharge Plan Discharge Patient Disposition: Home Condition: Stable Prescriptions: New hydrocodone-acetaminophen 5-325 mg Tablet 1 tab PO Q4H PRN (Reason: Moderate Pain) Qty: 5 RF: 0 Thera 400 mcg Tablet 1 tab PO DAILY Qty: 30 RF: 0 Discontinued aspirin [Aspir-81] 81 mg Tablet,Delayed Release (Dr/Ec) 81 mg PO PRN RF: 0 acetaminophen [Tylenol Extra Strength] 500 mg Tablet 1,000 mg PO PRN RF: 0 Discharge Orders: Discharge Order (Routine); Ordered 02/26/21 Ordered By: Magaly Darden Referrals: Ashley Barron DO [Physician] - 7-10 days (Please call to make an appointment to be seen in 7-10 days.) Discharge Diet: Advance as tolerated Discharge Activity: Increase activity as tolerated Patient Instructions: Pancreatitis (DC), Abuse of Alcohol (DC), Opioid Safety Discharge Attestations Time Spent in Discharge Care*: greater than 30 min Specific Discharge Activities: educating patient, discussing with embedded case manager/social workers/dc planners, documenting/other paperwork and evaluating patient/reviewing data Status at Discharge: Cognitive status at discharge: cognitively intact , Behavioral status at discharge: cooperative , Functional status at discharge: independent ambulation Overall status at discharge: patient is progressing back to baseline Quality Metrics Clinical Quality Measures During this hospital stay, did patient experience: None Coding Level of Care Code Acute g DC note Diagnoses Acute alcoholic pancreatitis K85.20 Alcoholic ketoacidosis E87.2 Alcoholism F10.20 Transaminitis R74.01 Thrombocytopenia D69.6
== END 2021-02-26 11:15 | disposition home or self-care (01) | DRG 439 ==
LOC: ER 02-24 00:04 → MEDSURG 02-24 01:08
PROVIDERS: Emergency Medicine; Admitting Provider Internal Medicine; Emergency Provider Physician Assistant; Visit Provider Hospitalist
DX: K85.20 Alcohol induced acute pancreatitis without necrosis or infection (principal); F10.139 Alcohol abuse with withdrawal, unspecified; E87.2 Acidosis; Z81.1 Family history of alcohol abuse and dependence; F12.90 Cannabis use, unspecified, uncomplicated; F17.210 Nicotine dependence, cigarettes, uncomplicated; D69.6 Thrombocytopenia, unspecified
CPT/HCPCS: 36415; 36600; 74177; 80051; 80053; 80306; 80307; 81001; 82009; 82330; 82805; 83036; 83605; 83690; 83735; 84100; 84703; 85025; 96361; 96372; 96374; 96375; 96376; 99285; J1170; J2060; J2270; J2405; J2765; J3411; J3490; J7030; Q9967

== ENCOUNTER 2021-07-12 00:38 | Emergency (ER) | payer SELFPAY ==
[2021-07-12 00:44] VITALS: BP 134/93; PULSE 83; RESP 18; TEMP 36.7; O2SAT 93; BMI 23.3
--- NOTE | 2021-07-12 01:01 | ED_ITS ---
Documented by User: ROSALINDA Tidwell 07/12/21 02:05 HPI - Abdominal Pain General: Chief Complaint: Abdominal Pain Stated Complaint: abd pain, back pain, lower abd pain Time Seen by Provider: 07/12/21 00:44 Source: patient Mode of arrival: ambulatory Limitations: no limitations History of Present Illness: HPI narrative: Patient is a 35-year-old female who presents to ED today with a complaint of left flank and left-sided abdominal pains. Patient tells me she was getting out of the bathtub a few hours ago and began developing fairly sudden onset left flank pain radiating around into her left abdomen and throughout her lower abdomen. Patient denies any twisting/turning maneuvers where she could have strained something. She states she has felt nauseous and has had one episode of emesis. She does not complain of hematuria, dysuria, frequency, urgency. She is not running fevers. Normal bowel habits. She does not complain of vaginal discharge, bleeding or vaginal odor. No history of kidney stones. Patient does have a history of pancreatitis but states this feels different. Patient is an everyday alcohol drinker. No drug use. MD elicited complaint: abdominal pain and flank pain Pertinent past history: other (pancreatitis ) Onset (ago): hour(s) Pain Consistency: constant Location: LUQ, LLQ, L flank and Suprapubic Severity: severe Quality: sharp Migration to: LUQ and LLQ Exacerbating factors: nothing Relieving factors: nothing Associated Symptoms: Reports nausea and vomiting; Denies change in bowel habits, change in stool character, chills, diarrhea, dysuria, fever(s), heartburn, hematuria and hematemesis Related Data: Patient : No Review of Systems Const: Denies: fever(s), chills, body aches, fatigue or malaise Card: Denies: chest pain Resp: Denies: dyspnea GI: Reports: abdominal pain, nausea and vomiting; Denies: hematemesis, heartburn, diarrhea, change in bowel habits or change in stool character : Reports: flank pain; Denies: difficulty voiding, dysuria, urinary frequency, urinary urgency, hematuria, vaginal odor, vaginal bleeding, vaginal discharge or pelvic pain Musc: Reports: back pain (L flank); Denies: neck pain, extremity pain or joint pain Skin/Breast: Denies: rash Neuro: Denies: headache(s) or dizziness Physical Exam Const: COMMON NORMALS: average body habitus, patient oriented x3, no limitations, healthy appearing, alert and well nourished GENERAL APPEARANCE: cooperative, in distress (appears uncomfortable secondary to pain) and odor of alcohol detected ORIENTATION/CONSCIOUSNESS: Yes awake, Yes oriented to person, Yes oriented to place and Yes oriented to time HENMT: COMMON NORMALS: normocephalic and atraumatic HEAD & SCALP: normocephalic and atraumatic Resp: COMMON NORMALS: normal respiratory effort and clear to auscultation bilaterally AUSCULTATION: clear to auscultation bilaterally Cardio: COMMON NORMALS: regular rate and regular rhythm RATE: regular rate RHYTHM: regular rhythm GI: COMMON NORMALS: Normal to inspection, nondistended, normoactive bowel sounds present, Soft to palpation, No hepatosplenomegaly present and no masses INSPECTION: Yes normal to inspection PALPATION: Yes Soft to palpation, Yes Tenderness to palpation present (GI) (throughout L abdomen, suprapubic, and L flank) and Yes No hepatosplenomegaly present : BLADDER/KIDNEY EXAM: Yes CVA tenderness on the left Back/Pelvis: GENERAL BACK: Yes CVA tenderness Extremity: COMMON NORMALS: normal to inspection Neuro: COMMON NORMALS: patient oriented x3 SENSORIUM/ORIENTATION: Yes alert, Yes oriented to person, Yes oriented to place and Yes oriented to time Skin: COMMON NORMALS: no rashes or lesions noted GENERAL SKIN EXAM: no rashes or lesions noted Course Vital Signs: Vital signs: Vital Signs Temperature 98.0 F 07/12/21 00:44 Pulse Rate 84 07/12/21 02:22 Respiratory Rate 20 H 07/12/21 02:22 Blood Pressure 127/92 07/12/21 02:22 Pulse Oximetry 100 07/12/21 02:22 MDM - Abdominal Pain MDM Narrative: Medical decision making narrative: Patient is a 35-year-old female here with a small left ureter stone. CT scan also comments on some possible colitis although patient's history/acute onset does not fit this diagnosis Her vital signs are stable. She has a normal white count. Initial clean-catch UA was grossly contaminated thus cath specimen obtained which shows 3+ blood but no evidence for infection. Patient was given fluids and pain/nausea meds here and is resting comfortably. She was noted to have elevated liver enzymes on her CMP. This is most likely secondary to her chronic alcohol abuse. She does not want rehab at this time. Will DC home with strainer, pain/nausea meds, and flomax and have CM set her up with Dr. Mcelroy. Return to ED precautions given. Patient calling an Uber ride home. Lab Data: Attestation: I reviewed the patient's lab results. Labs: Lab Results 07/12/21 07/12/21 07/12/21 01:04 TECHNICAL SUPPORT CONSULTANT 01:04 TECHNICAL SUPPORT CONSULTANT 01:04 TECHNICAL SUPPORT CONSULTANT WBC 6.9 10^3/uL 10^3/ uL (4.0-10.0) RBC 3.38 10^6/uL L 10 ^6/uL (4.1-5.3) Hgb 12.1 g/dL g/dL (11.5-15.3) Hct 36.1 % L % (37.0-47.0) MCV 106.8 fl H fl (81-99) MCH 35.8 pg H pg (28.0-34.0) MCHC 33.5 g/dL g/dL (30.0-36.0) RDW 13.2 % % (12.1-15.1) Plt Count 104 10^3/cmm L 10 ^3/cmm (130-400) MPV 10.8 fL H fL (7.4-10.4) Neut % (Auto) 57.7 % % Lymph % (Auto) 28.4 % % Chase % (Auto) 7.7 % % Eos % (Auto) 1.6 % % Baso % (Auto) 1.3 % % Neut # (Auto) 3.96 10^3/uL 10^3 /uL (1.8-7.7) Lymph # (Auto) 2.0 10^3/uL 10^3/ uL (0.8-4.8) Chase # (Auto) 0.5 10^3/uL 10^3/ uL (0.2-0.9) Eos # (Auto) 0.1 10^3/uL 10^3/ uL (0.0-0.8) Baso # (Auto) 0.1 10^3/uL 10^3/ uL (0.0-0.1) Nucleated RBC % (a uto) 0 % % Nucleated RBCs # 0.0 /100WBC /100W BC Sodium 142 mmol/L mmol/L (136-145) Potassium 3.6 mmol/L mmol/L (3.5-5.1) Chloride 102 mmol/L mmol/L (98-107) Carbon Dioxide 25 mmol/L mmol/L (22-29) Anion Gap 18.6 (5-19) BUN 4 mg/dL L mg/dL (6-20) Creatinine 0.3 mg/dL L mg/dL (0.5-0.9) GFR Calculation 251.7 mL/min H mL /min (90-130) Glucose 98 mg/dL mg/dL (65-115) Calculated Osmolal ity 291 mOsm/kg mOsm/ kg (285-295) Calcium 8.1 mg/dL L mg/dL (8.5-10.5) Total Bilirubin 0.7 mg/dL mg/dL (0.15-1.2) AST 250 U/L H U/L (0-32) ALT 70 U/L H U/L (0-33) Alkaline Phosphata se 189 IU/L H IU/L (35-105) Total Protein 6.8 g/dL g/dL (6.6-8.7) Albumin 3.3 g/dL L g/dL (3.5-5.2) Globulin 3.5 g/dL g/dL (1.3-4.6) Lipase 51 U/L U/L (13-60) HCG, Qual Negative (Negative) Urine Color Urine Appearance Urine pH Ur Specific Gravit y Urine Protein Urine Glucose (UA) Urine Ketones Urine Blood Urine Nitrate Urine Bilirubin Urine Urobilinogen Ur Leukocyte Dina ase Urine RBC Urine WBC Ur Squamous Epith Cells Amorphous Sediment Urine Bacteria 07/12/21 07/12/21 01:15 TECHNICAL SUPPORT CONSULTANT 01:57 TECHNICAL SUPPORT CONSULTANT WBC RBC Hgb Hct MCV MCH MCHC RDW Plt Count MPV Neut % (Auto) Lymph % (Auto) Chase % (Auto) Eos % (Auto) Baso % (Auto) Neut # (Auto) Lymph # (Auto) Chase # (Auto) Eos # (Auto) Baso # (Auto) Nucleated RBC % (a uto) Nucleated RBCs # Sodium Potassium Chloride Carbon Dioxide Anion Gap BUN Creatinine GFR Calculation Glucose Calculated Osmolal ity Calcium Total Bilirubin AST ALT Alkaline Phosphata se Total Protein Albumin Globulin Lipase HCG, Qual Urine Color Brown Yellow (Yellow) (Yellow) Urine Appearance Sl cloudy A Sl cloudy A (CLEAR) (CLEAR) Urine pH 5 5 (5-7) (5-7) Ur Specific Gravit y 1.025 1.025 (1.005-1.030) (1.005-1.030) Urine Protein 2+ H 1+ H (Negative) (Negative) Urine Glucose (UA) Norm Norm (Normal) (Normal) Urine Ketones 1+ H Negative (Negative) (Negative) Urine Blood 3+ H 3+ H (Negative) (Negative) Urine Nitrate Positive H Negative (Negative) (Negative) Urine Bilirubin 1+ H 1+ H (Negative) (Negative) Urine Urobilinogen 8 mg/dL H mg/dL 4 mg/dL H mg/dL (Negative) (Negative) Ur Leukocyte Dina ase 1+ H Negative (Negative) (Negative) Urine RBC Too numerous to c nt /hpf H /hpf (0-2) Urine WBC 25-40 /hpf H /hpf (0-5) Ur Squamous Epith Cells 40-55 /hpf H /hpf (0-5) Amorphous Sediment Not Reportable Urine Bacteria 4+ /hpf H /hpf (NONE) Imaging Data ^: CT Abd/Pel: Radiologist's impression: [employer] [address] [address] Scan Report Signed Patient: Raquel Leger Unit #: [id number] : 1985 Age/Sex: 35 / F ADM Date: 07/12/21 Loc: ER Room/Bed: Attending Dr: Ordering Provider/Ordering MD: Ceci Akins Date of Service: 07/12/21 Procedure(s): CT kidney stone [address] Accession Number(s): [id number] Report Number: [id number] PROCEDURE INFORMATION: Exam: CT Abdomen And Pelvis Without Contrast Exam date and time: 07/12/2021 1:00 AM Age: 35 years old Clinical indication: Abdominal pain; Flank; Left; Additional info: L flank pain/abdominal pain TECHNIQUE: Imaging protocol: Computed tomography of the abdomen and pelvis without contrast. Radiation optimization: All CT scans at this facility use at least one of these dose optimization techniques: automated exposure control; mA and/or kV adjustment per patient size (includes targeted exams where dose is matched to clinical indication); or iterative reconstruction. COMPARISON: No relevant prior studies available. RADIATION DOSE METRICS: Total DLP (mGy-cm): 542.26 FINDINGS: Lungs: The lung bases are clear. No effusion Liver: There is fatty infiltration of the liver. Gallbladder and bile ducts: No wall thickening, pericholecystic fluid or stones. Pancreas: Normal. No ductal dilation. Spleen: Normal. No splenomegaly. Adrenal glands: Normal. No mass. Kidneys and ureters: 2 mm mildly obstructing left distal ureteral stone. Stomach and bowel: Diverticulosis without diverticulitis. There is mild pericolonic fat stranding which may be secondary to diffuse colitis. Appendix: No evidence of appendicitis. Intraperitoneal space: Unremarkable. No free air. No significant fluid collection. Vasculature: Unremarkable. No abdominal aortic aneurysm. Lymph nodes: Unremarkable. No enlarged lymph nodes. Urinary bladder: Unremarkable as visualized. Reproductive: Unremarkable as visualized. Bones/joints: Unremarkable. No acute fracture. Soft tissues: Unremarkable. CT/CT kidney stone [id number] IMPRESSION: 1. 2 mm mildly obstructing left distal ureteral stone. 2. There is mild pericolonic fat stranding which may be secondary to diffuse colitis. 3. Fatty infiltration of the liver. 4. Diverticulosis without diverticulitis. Radiation Dose CTDIVOL = (mGy): DLP = 542.26 (mGy-cm) Dictated By: Thanh Paulino Signed By: Thanh Paulino Signed Date/Time: 07/12/21 0202 DD/ 0100 Discharge Plan Discharge Patient Disposition: Home Clinical Impression: Left ureteral calculus, LFT elevation, Chronic alcohol abuse Condition: Stable Prescriptions: New hydrocodone-acetaminophen 5-325 mg tablet 1 tab PO Q4H PRN (Reason: pain) Qty: 20 RF: 0 Zofran 4 mg tablet 4 mg PO Q6H PRN (Reason: nausea and vomiting) Qty: 14 RF: 0 Flomax 0.4 mg capsule 0.4 mg PO DAILY Qty: 10 RF: 0 Discharge Orders: Discharge ED (Routine); Ordered 07/12/21 Ordered By: Ceci Akins Patient Instructions: Abuse of Alcohol (ED), Ureteral Stones (ED), Opioid Safety Activity Restrictions/Additional Instructions: [facility] is committed to fighting the nationwide opiate epidemic. We are providing ALL patients with information regarding opiate safety. If you received opiate pain medication during your stay or if you received a prescription for opiate pain medication-please review this handout. If not, you may disregard. Thank you. As we discussed please start straining your urine. If you pass a stone please bring it with you to your follow-up urology appointment. Case management should be contacting you shortly to set you up with this appointment. You need to return to the emergency department for severe or uncontrollable pain, fevers, repetitive episodes of vomiting, or any other concerns you may have. As we discussed you were noted to have elevated liver enzymes on your blood work today. This is most likely secondary to your chronic alcohol abuse. We have discussed seeking help-please seek treatment when you feel mentally ready to do so. Coding Level of Care Code ED Spinner Continuous for Chg Fwd Exam Comprehensive Documented by User: Demetrius José DO 07/12/21 23:13 HPI - Abdominal Pain General: Chief Complaint: Abdominal Pain Stated Complaint: abd pain, back pain, lower abd pain Time Seen by Provider: 07/12/21 00:44 Course Vital Signs: Vital signs: Vital Signs Temperature 98.0 F 07/12/21 00:44 Pulse Rate 84 07/12/21 02:22 Respiratory Rate 20 H 07/12/21 02:22 Blood Pressure 127/92 07/12/21 02:22 Pulse Oximetry 100 07/12/21 02:22 MDM - Abdominal Pain MDM Narrative: Medical decision making narrative: This patient was originally seen by Mrs. Darrell PA-C. I agree with her history, evaluation, and treatment. Lab Data: Labs: Lab Results 07/12/21 07/12/21 07/12/21 01:04 TECHNICAL SUPPORT CONSULTANT 01:04 TECHNICAL SUPPORT CONSULTANT 01:04 TECHNICAL SUPPORT CONSULTANT WBC 6.9 10^3/uL 10^3/ uL (4.0-10.0) RBC 3.38 10^6/uL L 10 ^6/uL (4.1-5.3) Hgb 12.1 g/dL g/dL (11.5-15.3) Hct 36.1 % L % (37.0-47.0) MCV 106.8 fl H fl (81-99) MCH 35.8 pg H pg (28.0-34.0) MCHC 33.5 g/dL g/dL (30.0-36.0) RDW 13.2 % % (12.1-15.1) Plt Count 104 10^3/cmm L 10 ^3/cmm (130-400) MPV 10.8 fL H fL (7.4-10.4) Neut % (Auto) 57.7 % % Lymph % (Auto) 28.4 % % Chase % (Auto) 7.7 % % Eos % (Auto) 1.6 % % Baso % (Auto) 1.3 % % Neut # (Auto) 3.96 10^3/uL 10^3 /uL (1.8-7.7) Lymph # (Auto) 2.0 10^3/uL 10^3/ uL (0.8-4.8) Chase # (Auto) 0.5 10^3/uL 10^3/ uL (0.2-0.9) Eos # (Auto) 0.1 10^3/uL 10^3/ uL (0.0-0.8) Baso # (Auto) 0.1 10^3/uL 10^3/ uL (0.0-0.1) Nucleated RBC % (a uto) 0 % % Nucleated RBCs # 0.0 /100WBC /100W BC Sodium 142 mmol/L mmol/L (136-145) Potassium 3.6 mmol/L mmol/L (3.5-5.1) Chloride 102 mmol/L mmol/L (98-107) Carbon Dioxide 25 mmol/L mmol/L (22-29) Anion Gap 18.6 (5-19) BUN 4 mg/dL L mg/dL (6-20) Creatinine 0.3 mg/dL L mg/dL (0.5-0.9) GFR Calculation 251.7 mL/min H mL /min (90-130) Glucose 98 mg/dL mg/dL (65-115) Calculated Osmolal ity 291 mOsm/kg mOsm/ kg (285-295) Calcium 8.1 mg/dL L mg/dL (8.5-10.5) Total Bilirubin 0.7 mg/dL mg/dL (0.15-1.2) AST 250 U/L H U/L (0-32) ALT 70 U/L H U/L (0-33) Alkaline Phosphata se 189 IU/L H IU/L (35-105) Total Protein 6.8 g/dL g/dL (6.6-8.7) Albumin 3.3 g/dL L g/dL (3.5-5.2) Globulin 3.5 g/dL g/dL (1.3-4.6) Lipase 51 U/L U/L (13-60) HCG, Qual Negative (Negative) Urine Color Urine Appearance Urine pH Ur Specific Gravit y Urine Protein Urine Glucose (UA) Urine Ketones Urine Blood Urine Nitrate Urine Bilirubin Urine Urobilinogen Ur Leukocyte Dina ase Urine RBC Urine WBC Ur Squamous Epith Cells Amorphous Sediment Urine Bacteria 07/12/21 07/12/21 01:15 TECHNICAL SUPPORT CONSULTANT 01:57 TECHNICAL SUPPORT CONSULTANT WBC RBC Hgb Hct MCV MCH MCHC RDW Plt Count MPV Neut % (Auto) Lymph % (Auto) Chase % (Auto) Eos % (Auto) Baso % (Auto) Neut # (Auto) Lymph # (Auto) Chase # (Auto) Eos # (Auto) Baso # (Auto) Nucleated RBC % (a uto) Nucleated RBCs # Sodium Potassium Chloride Carbon Dioxide Anion Gap BUN Creatinine GFR Calculation Glucose Calculated Osmolal ity Calcium Total Bilirubin AST ALT Alkaline Phosphata se Total Protein Albumin Globulin Lipase HCG, Qual Urine Color Brown Yellow (Yellow) (Yellow) Urine Appearance Sl cloudy A Sl cloudy A (CLEAR) (CLEAR) Urine pH 5 5 (5-7) (5-7) Ur Specific Gravit y 1.025 1.025 (1.005-1.030) (1.005-1.030) Urine Protein 2+ H 1+ H (Negative) (Negative) Urine Glucose (UA) Norm Norm (Normal) (Normal) Urine Ketones 1+ H Negative (Negative) (Negative) Urine Blood 3+ H 3+ H (Negative) (Negative) Urine Nitrate Positive H Negative (Negative) (Negative) Urine Bilirubin 1+ H 1+ H (Negative) (Negative) Urine Urobilinogen 8 mg/dL H mg/dL 4 mg/dL H mg/dL (Negative) (Negative) Ur Leukocyte Dina ase 1+ H Negative (Negative) (Negative) Urine RBC Too numerous to c nt /hpf H /hpf (0-2) Urine WBC 25-40 /hpf H /hpf (0-5) Ur Squamous Epith Cells 40-55 /hpf H /hpf (0-5) Amorphous Sediment Not Reportable Urine Bacteria 4+ /hpf H /hpf (NONE) Discharge Plan Discharge Patient Disposition: Home Clinical Impression: Left ureteral calculus, LFT elevation, Chronic alcohol abuse Condition: Stable Prescriptions: New hydrocodone-acetaminophen 5-325 mg tablet 1 tab PO Q4H PRN (Reason: pain) Qty: 20 RF: 0 Zofran 4 mg tablet 4 mg PO Q6H PRN (Reason: nausea and vomiting) Qty: 14 RF: 0 Flomax 0.4 mg capsule 0.4 mg PO DAILY Qty: 10 RF: 0 Discharge Orders: Discharge ED (Routine); Ordered 07/12/21 Ordered By: Ceci Akins Patient Instructions: Abuse of Alcohol (ED), Ureteral Stones (ED), Opioid Safety Activity Restrictions/Additional Instructions: [facility] is committed to fighting the nationwide opiate epidemic. We are providing ALL patients with information regarding opiate safety. If you received opiate pain medication during your stay or if you received a prescription for opiate pain medication-please review this handout. If not, you may disregard. Thank you. As we discussed please start straining your urine. If you pass a stone please bring it with you to your follow-up urology appointment. Case management should be contacting you shortly to set you up with this appointment. You need to ret urn to the emergency department for severe or uncontrollable pain, fevers, repetitive episodes of vomiting, or any other concerns you may have. As we discussed you were noted to have elevated liver enzymes on your blood work today. This is most likely secondary to your chronic alcohol abuse. We have discussed seeking help-please seek treatment when you feel mentally ready to do so. Coding Level of Care Code ED Spinner Continuous for Kamron Fwd Exam Comprehensive
[2021-07-12 01:07] VITALS: BP 126/92; O2SAT 100
[2021-07-12 01:17] LABS: Protein Urine 1+ (Negative); Specific Gravity, Urine 1.025 (1.005-1.030); Urine Color Yellow (Yellow); pH Urine 5 (5-7)
[2021-07-12 01:18] LABS: Add Urine Microscopic? YES; Bilirubin Urine 1+ (Negative); Blood Urine 3+ (Negative); Glucose Urine UA Norm (Normal); Ketones Urine Negative (Negative); Leukocyte Esterase Urine Negative (Negative); Nitrate Urine Negative (Negative); Urobilinogen Urine 4 mg/dL (Negative)
[2021-07-12 01:21] VITALS: BP 123/93; PULSE 88; RESP 18; O2SAT 100
[2021-07-12] MEDS: morphine 4 mg/mL SDV 1 mL IVP (01:22)
[2021-07-12] MEDS: ondansetron 2 mg/ML SDV 2 mL 4 MG IVP (01:23)
[2021-07-12] MEDS: sodium chloride 0.9% 1,000 ML 999 ML IV (01:23)
--- NOTE | 2021-07-12 01:23 | PC.NURSE ---
Pt. states, immediately after administration of pain medication , that the medications are not working.
[2021-07-12 01:25] LABS: Basophils # 0.1 10^3/uL (0.0-0.1); Basophils % 1.3 %; Eosinophils # 0.1 10^3/uL (0.0-0.8); Eosinophils % 1.6 %; Hematocrit 36.1 % (37.0-47.0); Hemoglobin 12.1 g/dL (11.5-15.3); Lymphocytes % 28.4 %; Mean Corpuscular HGB Conc 33.5 g/dL (30.0-36.0); Mean Corpuscular Hemoglobin 35.8 pg (28.0-34.0); Mean Corpuscular Volume 106.8 fl (81-99); Mean Platelet Volume 10.8 fL (7.4-10.4); Monocytes # 0.5 10^3/uL (0.2-0.9); Monocytes % 7.7 %; Neutrophils # 3.96 10^3/uL (1.8-7.7); Neutrophils % 57.7 %; Nucleated Red Blood Cells % 0 %; Platelet Count 104 10^3/cmm (130-400); Red Blood Count 3.38 10^6/uL (4.1-5.3); Red Cell Distribution Width 13.2 % (12.1-15.1); White Blood Count 6.9 10^3/uL (4.0-10.0)
[2021-07-12 01:33] LABS: Urine Color Brown (Yellow)
[2021-07-12 01:33] LABS: HCG, Serum Qual Negative (Negative)
[2021-07-12 01:34] LABS: Add Urine Microscopic? YES; Bilirubin Urine 1+ (Negative); Blood Urine 3+ (Negative); Glucose Urine UA Norm (Normal); Ketones Urine 1+ (Negative); Leukocyte Esterase Urine 1+ (Negative); Nitrate Urine Positive (Negative); Protein Urine 2+ (Negative); Specific Gravity, Urine 1.025 (1.005-1.030); Urobilinogen Urine 8 mg/dL (Negative); pH Urine 5 (5-7)
[2021-07-12 01:36] LABS: Alanine Aminotransferase 70 U/L (0-33); Albumin Level 3.3 g/dL (3.5-5.2); Alkaline Phosphatase 189 IU/L (35-105); Anion Gap 18.6 (5-19); Aspartate Amino Transferase 250 U/L (0-32); Blood Urea Nitrogen 4 mg/dL (6-20); Calcium 8.1 mg/dL (8.5-10.5); Carbon Dioxide 25 mmol/L (22-29); Chloride 102 mmol/L (98-107); Globulin 3.5 g/dL (1.3-4.6); Glomerular Filtration Rate 251.7 mL/min (90-130); Glucose 98 mg/dL (65-115); Lipase 51 U/L (13-60); Osmolality Calculated 291 mOsm/kg (285-295); Potassium 3.6 mmol/L (3.5-5.1); Sodium 142 mmol/L (136-145); Total Bilirubin 0.7 mg/dL (0.15-1.2); Total Protein 6.8 g/dL (6.6-8.7)
[2021-07-12 01:36] LABS: Add Urine Culture? No; Bacteria Urine 4+ /hpf; RBC Urine TOO NUMEROUS TO CNT /hpf (0-2); Squamous Epithelial Cell Urine 40-55 /hpf (0-5); WBC Urine 25-40 /hpf (0-5)
--- NOTE | 2021-07-12 01:50 | PC.NURSE ---
Pt. back from CT. Straight catheter ordered due to gross contamination of urine sample provided.
[2021-07-12 01:52] VITALS: BP 103/72; RESP 18; O2SAT 98
[2021-07-12 02:22] VITALS: BP 127/92; PULSE 84; RESP 20; O2SAT 100
--- NOTE | 2021-07-13 10:03 | DCPLANNER ---
it help desk manager had message to schedule a follow up appointment for patient with Dr. Mcelroy. it help desk manager called the office of Dr. Mcelroy, spoke with Angela, gave clinic patients information. it help desk manager was told that patients information would be printed and reviewed. Clinic will call patient with appointment information.
--- NOTE | 2021-07-22 11:28 | DCPLANNER ---
apartment property manager called the office of Dr. Mcelroy to confirm if an appointment had been scheduled for patient. apartment property manager spoke with Angela, was told that clinic was unable to reach patient to schedule an appointment.
== END 2021-07-12 02:24 | disposition home or self-care (01) ==
PROVIDERS: Emergency Provider Physician Assistant
DX: N20.1 Calculus of ureter (principal); R79.89 Other specified abnormal findings of blood chemistry; F10.10 Alcohol abuse, uncomplicated
CPT/HCPCS: 74176; 80053; 81001; 83690; 84703; 85025; 96361; 96374; 96375; 99283; J2270; J2405; J7030

== ENCOUNTER 2021-11-08 16:52 | Inpatient (IN) | payer MEDICAID, SELFPAY ==
[2021-11-08] VITALS (10 sets, daily range): BP systolic 125–136; BP diastolic 85–100; PULSE 88–118; RESP 2–20; TEMP 36–36.4; O2SAT 92–98; BMI 21.4
--- NOTE | 2021-11-08 17:16 | ED_ITS ---
Documented by User: MCKENZIE Archer 11/08/21 20:53 HPI - Abdominal Pain General: Chief Complaint: Abdominal Pain Stated Complaint: abd pain Time Seen by Provider: 11/08/21 17:15 History of Present Illness: 36-year-old female comes in with abdominal pain since this morning. Patient has a history of pancreatitis, and alcoholism. Patient denies any routine medications. Patient reports last dose of alcohol was last night. Patient does report withdrawals from alcohol but has never had a seizure. Patient appears mildly unwell but not toxic. Patient appears in moderate pain. Patient reports daily alcohol consumption with last drink last night. MD elicited complaint: abdominal pain Pertinent past history: other (Pancreatitis) Location: Epigastric Relieving factors: nothing Associated Symptoms: Reports nausea Related Data: Date of Last Menstrual Period: 11/07/21 Review of Systems General: Reports: 10 or more systems reviewed and unremarkable except in HPI and below GI: Reports: abdominal pain and nausea [facility] Female Reproductive History: Date of last menstrual period: 11/07/21 Physical Exam Const: COMMON NORMALS: alert HENMT: COMMON NORMALS: atraumatic HEAD & SCALP: atraumatic Eye: COMMON NORMALS: Equal, round and reactive pupils present and EOMs intact bilaterally PUPIL: Yes Equal, round and reactive pupils present Neck/C-Spine: COMMON NORMALS: full ROM Resp: COMMON NORMALS: normal respiratory effort and clear to auscultation bilaterally AUSCULTATION: clear to auscultation bilaterally Cardio: COMMON NORMALS: regular rate and regular rhythm RATE: regular rate RHYTHM: regular rhythm GI: COMMON NORMALS: Soft to palpation PALPATION: Yes Soft to palpation and Yes Tenderness to palpation present (GI) Details: RUQ Extremity: COMMON NORMALS: normal to inspection and no pedal edema Neuro: SENSORIUM/ORIENTATION: Yes alert Psych: COMMON NORMALS: cooperative Skin: COMMON NORMALS: turgor normal NARRATIVE SKIN EXAM: Patient has multiple small bruises to upper extremities GENERAL SKIN EXAM: turgor normal Course ED course: 1929, reviewed patient with Dr. José regarding abnormalities in labs showing a acidosis. Patient's bicarb was 7. Read received back lactic acid which showed 3.7. CT of the abdomen pelvis noted acute pancreatitis and a nonocclusive portal vein thrombosis. He recommended starting antibiotic and IV fluids. I also gave patient Lovenox 50 mg for anticoagulation. Patient was notified and agreed to plan. Patient was pretreated with 1 mg Ativan to prevent withdrawals from alcohol. He agreed with plan that we need to admit patient to inpatient services for IV fluids, pain control, and repeat laboratory values, and IV antibiotics. 1946, Dr. Rollins from radiology notified us of portal vein thrombosis. Vital Signs: Vital signs: Vital Signs Temperature 97.6 F 11/08/21 17:13 Pulse Rate 88 11/08/21 19:11 Respiratory Rate 2 L 11/08/21 19:11 Blood Pressure 132/94 11/08/21 19:46 Pulse Oximetry 94 11/08/21 19:11 MDM - Abdominal Pain Medical Decision Making Patient came in today for complaints of severe abdominal pain. Patient has a history of alcoholism and pancreatitis. On exam patient has epigastric and right upper quadrant abdominal tenderness. Bowel sounds were hyperactive. Vital signs were normal except for some elevation in pulse at 114. Differential diagnosis includes but not limited to cholecystitis, pancreatitis, peptic ulcer disease, perforation of viscus organ. Laboratory values noted white count of 5.8, INR of 1.0, sodium 138, carbon dioxide 7, anion gap 35.5, lactic acid 3.7, bilirubin 0.8, and lipase 1700. EtOH was 197. CT of the abdomen pelvis noted pancreatitis and a nonocclusive portal vein thrombosis. Patient was given 50 mg of Lovenox for anticoagulation of nonocclusive portal vein thrombosis. Patient was infused with 2 L of IV fluids for pancreatitis, she was treated with morphine for her pain, and Ativan for control of withdrawals to alcohol. I discussed patient with Dr. José who agreed with plan that patient needs to be admitted to hospital for IV fluids, repeat labs, treatment of pancreatitis, and treatment of thrombosis. Lab Data : 11/08/21 18:05 11/08/21 18:05 Labs/Radiology: Radiology Impressions Abdomen/Pelvis CT 11/08/21 17:24 IMPRESSION: 1. Acute pancreatitis, as described above. Correlate with serum amylase and lipase levels. No drainable fluid collection. No necrosis or hemorrhage. 2. Nonocclusive portal vein thrombosis, as described above. 3. Mild nonspecific right-sided colitis. 4. Additional findings, as above. ADDENDUM: 11/08/211947 ADDENDUM: THIS REPORT CONTAINS FINDINGS THAT MAY BE CRITICAL TO PATIENT CARE. The findings were verbally communicated via telephone conference with FELI RAIN at 7:46 PM APPLICATIONS PROGRAMMER ANALYST on 11/08/2021. The findings were acknowledged and understood. Laboratory Results WBC 5.8 10^3/uL (4.0-10.0) 11/08/21 18:05 Corrected WBC Cancelled 11/08/21 17:14 RBC 3.79 10^6/uL (4.1-5.3) L 11/08/21 18:05 Hgb 13.6 g/dL (11.5-15.3) 11/08/21 18:05 Hct 41.9 % (37.0-47.0) 11/08/21 18:05 MCV 110.6 fl (81-99) H 11/08/21 18:05 MCH 35.9 pg (28.0-34.0) H 11/08/21 18:05 MCHC 32.5 g/dL (30.0-36.0) 11/08/21 18:05 RDW 12.0 % (12.1-15.1) L 11/08/21 18:05 Plt Count 85 10^3/cmm (130-400) L 11/08/21 18:05 MPV 11.2 fL (7.4-10.4) H 11/08/21 18:05 Gran % Cancelled 11/08/21 17:14 Neut % (Auto) 84.8 % 11/08/21 18:05 Lymph % (Auto) 6.7 % 11/08/21 18:05 [place] % (Auto) 5.2 % 11/08/21 18:05 Eos % (Auto) 2.4 % 11/08/21 18:05 Baso % (Auto) 0.2 % 11/08/21 18:05 Neut # (Auto) 4.94 10^3/uL (1.8-7.7) 11/08/21 18:05 Lymph # (Auto) 0.4 10^3/uL (0.8-4.8) L 11/08/21 18:05 [place] # (Auto) 0.3 10^3/uL (0.2-0.9) 11/08/21 18:05 Eos # (Auto) 0.1 10^3/uL (0.0-0.8) 11/08/21 18:05 Baso # (Auto) 0.0 10^3/uL (0.0-0.1) 11/08/21 18:05 Absolute Gran (auto) Cancelled 11/08/21 17:14 Nucleated RBC % (auto) 0 % 11/08/21 18:05 Nucleated RBCs # 0.0 /100WBC 11/08/21 18:05 PT 13.50 SECONDS (12.1-14.9) 11/08/21 18:05 INR 1.00 (0.8-1.2) 11/08/21 18:05 Specimen Type Arterial 11/08/21 19:25 Sample Site Radial, right 11/08/21 19:25 ABG pH 7.13 (7.35-7.45) L* 11/08/21 19:25 ABG pCO2 22.8 mmHg (35-45) L 11/08/21 19:25 ABG pO2 107.0 mmHg (80.0-100.0) H 11/08/21 19:25 ABG HCO3 7.6 mmol/L (22-26) L 11/08/21 19:25 ABG Base Excess -19.8 mmol/L (-2.0-2.0) L 11/08/21 19:25 Jonathan Test Pos 11/08/21 19:25 Hematocrit 42.6 % (37-47) 11/08/21 19:25 O2 Delivery Device None 11/08/21 19:25 Dye Range Operator ID Hensa 11/08/21 19:25 Sodium 134 mmol/L (136-145) L 11/08/21 18:05 Potassium 4.5 mmol/L (3.5-5.1) 11/08/21 18:05 Chloride 96 mmol/L (98-107) L 11/08/21 18:05 Carbon Dioxide 7 mmol/L (22-29) L* 11/08/21 18:05 Anion Gap 35.5 (5-19) H 11/08/21 18:05 BUN 8 mg/dL (6-20) 11/08/21 18:05 Creatinine 0.5 mg/dL (0.5-0.9) 11/08/21 18:05 GFR Calculation 138.8 mL/min (90-130) H 11/08/21 18:05 Glucose 96 mg/dL (65-115) 11/08/21 18:05 Calculated Osmolality 276 mOsm/kg (285-295) L 11/08/21 18:05 Lactate 3.7 mmol/L (0.5-2.2) H 11/08/21 17:41 Calcium 8.1 mg/dL (8.5-10.5) L 11/08/21 18:05 Total Bilirubin 0.8 mg/dL (0.15-1.2) 11/08/21 18:05 AST 91 U/L (0-32) H 11/08/21 18:05 ALT 40 U/L (0-33) H 11/08/21 18:05 Alkaline Phosphatase 92 IU/L (35-105) 11/08/21 18:05 Total Protein 7.7 g/dL (6.6-8.7) 11/08/21 18:05 Albumin 4.5 g/dL (3.5-5.2) 11/08/21 18:05 Globulin 3.2 g/dL (1.3-4.6) 11/08/21 18:05 Lipase 1720 U/L (13-60) H 11/08/21 18:05 HCG, Qual Negative (Negative) 11/08/21 18:05 Urine Color Yellow (Yellow) 11/08/21 19:15 Urine Appearance Clear (CLEAR) 11/08/21 19:15 Urine pH 5 (5-7) 11/08/21 19:15 Ur Specific [place] 1.025 (1.005-1.030) 11/08/21 19:15 Urine Protein 1+ (Negative) H 11/08/21 19:15 Urine Glucose (UA) Norm (Normal) 11/08/21 19:15 Urine Ketones 2+ (Negative) H 11/08/21 19:15 Urine Blood 3+ (Negative) H 11/08/21 19:15 Urine Nitrate Negative (Negative) 11/08/21 19:15 Urine Bilirubin Neg (Negative) 11/08/21 19:15 Urine Urobilinogen Norm mg/dL (Negative) 11/08/21 19:15 Ur Leukocyte Esterase Negative (Negative) 11/08/21 19:15 Urine RBC 10-15 /hpf (0-2) H 11/08/21 19:15 Urine WBC 0-4 /hpf (0-5) H 11/08/21 19:15 Ur Squamous Epith Cells 15-25 /hpf (0-5) H 11/08/21 19:15 Amorphous Sediment Not Reportable 11/08/21 19:15 Urine Bacteria 1+ /hpf (NONE) H 11/08/21 19:15 Urine Opiates Screen Positive ng/mL (Negative) H 11/08/21 19:15 Ur Barbiturates Screen Negative ng/mL (Negative) 11/08/21 19:15 Ur Phencyclidine Scrn Negative ng/mL (Negative) 11/08/21 19:15 Ur Amphetamines Screen Negative ng/mL (Negative) 11/08/21 19:15 U Benzodiazepines Scrn Negative ng/mL (Negative) 11/08/21 19:15 Urine Cocaine Screen Negative ng/mL (Negative) 11/08/21 19:15 U Marijuana (THC) Screen Negative ng/mL (Negative) 11/08/21 19:15 Ethyl Alcohol 198 mg/dL (0-10) H 11/08/21 18:05 Discharge Plan Discharge Condition: Stable Prescriptions: No Action hydrocodone-acetaminophen 5-325 mg tablet 1 tab PO Q4H PRN (Reason: pain) Qty: 20 0RF Zofran 4 mg tablet 4 mg PO Q6H PRN (Reason: nausea and vomiting) Qty: 14 0RF Flomax 0.4 mg capsule 0.4 mg PO DAILY Qty: 10 0RF Coding Level of Care Code ED Milling Machine Set Up Operator for Chg Fwd Exam Comprehensive Documented by User: Demetrius José DO 11/08/21 20:41 HPI - Abdominal Pain General: Chief Complaint: Abdominal Pain Stated Complaint: abd pain Time Seen by Provider: 11/08/21 17:15 Course Consultations: Consultation #1: chela Time: 20:31 Vital Signs: Vital signs: Vital Signs Temperature 97.6 F 11/08/21 17:13 Pulse Rate 88 11/08/21 19:11 Respiratory Rate 2 L 11/08/21 19:11 Blood Pressure 132/94 11/08/21 19:46 Pulse Oximetry 94 11/08/21 19:11 MDM - Abdominal Pain Medical Decision Making Patient came in today for complaints of severe abdominal pain. Patient has a history of alcoholism and pancreatitis. On exam patient has epigastric and right upper quadrant abdominal tenderness. Bowel sounds were hyperactive. Vital signs were normal except for some elevation in pulse at 114. Differential diagnosis includes but not limited to cholecystitis, pancreatitis, peptic ulcer disease, perforation of viscus organ. Laboratory values noted white count of 5.8, INR of 1.0, sodium 138, carbon dioxide 7, anion gap 35.5, lactic acid 3.7, bilirubin 0.8, and lipase 1700. EtOH was 197. CT of the abdomen pelvis noted pancreatitis and a nonocclusive portal vein thrombosis. Patient was given 50 mg of Lovenox for anticoagulation of nonocclusive portal vein thrombosis. Patient was infused with 2 L of IV fluids for pancreatitis, she was treated with mor phine for her pain, and Ativan for control of withdrawals to alcohol. I discussed patient with Dr. José who agreed with plan that patient needs to be admitted to hospital for IV fluids, repeat labs, treatment of pancreatitis, and treatment of thrombosis. This patient was originally seen by MCKENZIE Muniz.? I agree with his history, evaluation, and treatment. Admission orders written. I spoke with hospitalist who accepts. Lab Data : 11/08/21 18:05 11/08/21 18:05 Labs/Radiology: Radiology Impressions Abdomen/Pelvis CT 11/08/21 17:24
--- NOTE | 2021-11-08 17:24 | CTR_ITS ---
PROCEDURE INFORMATION: Exam: CT Abdomen And Pelvis With Contrast Exam date and time: 11/08/2021 5:24 PM Age: 36 years old Clinical indication: Abdominal pain; Epigastric; Patient HX: HX of pancreatitis and alcoholism C/O upper abd pain w n/v TECHNIQUE: Imaging protocol: Computed tomography of the abdomen and pelvis with contrast. Axial, coronal and sagittal reformatted images were created and reviewed. Radiation optimization: All CT scans at this facility use at least one of these dose optimization techniques: automated exposure control; mA and/or kV adjustment per patient size (includes targeted exams where dose is matched to clinical indication); or iterative reconstruction. Contrast material: OMNI 300; Contrast volume: 75 ml; Contrast route: INTRAVENOUS (IV); COMPARISON: CT kidney stone [id number] 07/12/2021 1:41 AM RADIATION DOSE METRICS: Total DLP (mGy-cm): 653.26 FINDINGS: Diaphragm: Small hiatal hernia. Liver: Mild hepatomegaly. Diffuse hepatic steatosis. Gallbladder and bile ducts: No radiodense gallstones. No biliary ductal dilatation. Pancreas: Mild to moderate peripancreatic stranding and edema. No necrosis or hemorrhage. Spleen: Unremarkable. Adrenal glands: Normal. No mass. Kidneys and ureters: No mass. No radiodense calculi. No hydronephrosis. Stomach and bowel: Mild wall thickening of the cecum and ascending colon with associated mural edema. No obstruction. No pneumatosis. Appendix: Normal. Intraperitoneal space: Small ascites. No definite organized collection. No free air. Vasculature: Localized nonocclusive thrombus in the main portal vein, just above the confluence. No aortic aneurysm or dissection. Lymph nodes: No pathologically enlarged lymph nodes. Urinary bladder: Unremarkable as visualized. Reproductive: Probable involuting left ovarian corpus luteal cyst. Bones/joints: No acute osseous abnormality. Soft tissues: Unremarkable. CT/CT abdomen pelvis w con* [id number] IMPRESSION: 1. Acute pancreatitis, as described above. Correlate with serum amylase and lipase levels. No drainable fluid collection. No necrosis or hemorrhage. 2. Nonocclusive portal vein thrombosis, as described above. 3. Mild nonspecific right-sided colitis. 4. Additional findings, as above.
[2021-11-08] MEDS: sodium chloride 0.9% 1,000 ML 999 ML IV ×2 (17:45→19:41)
[2021-11-08] MEDS: morphine 4 mg/mL SDV 1 mL 2 MG IVP ×2 (17:46→23:10)
[2021-11-08] MEDS: ondansetron 2 mg/ML SDV 2 mL 4 MG IVP ×2 (17:46→22:52)
[2021-11-08] MEDS: ketorolac 30 mg/mL INJ 15 MG IVP (18:09)
[2021-11-08] MEDS: morphine 4 mg/mL SDV 1 mL IVP (18:11)
[2021-11-08 18:15] LABS: Basophils % 0.2 %; Eosinophils # 0.1 10^3/uL (0.0-0.8); Eosinophils % 2.4 %; Hematocrit 41.9 % (37.0-47.0); Hemoglobin 13.6 g/dL (11.5-15.3); Lymphocytes # 0.4 10^3/uL (0.8-4.8); Lymphocytes % 6.7 %; Mean Corpuscular HGB Conc 32.5 g/dL (30.0-36.0); Mean Corpuscular Hemoglobin 35.9 pg (28.0-34.0); Mean Corpuscular Volume 110.6 fl (81-99); Mean Platelet Volume 11.2 fL (7.4-10.4); Monocytes # 0.3 10^3/uL (0.2-0.9); Monocytes % 5.2 %; Neutrophils # 4.94 10^3/uL (1.8-7.7); Neutrophils % 84.8 %; Nucleated Red Blood Cells % 0 %; Platelet Count 85 10^3/cmm (130-400); Red Blood Count 3.79 10^6/uL (4.1-5.3); White Blood Count 5.8 10^3/uL (4.0-10.0)
[2021-11-08 18:28] LABS: Albumin Level 4.5 g/dL (3.5-5.2); Blood Urea Nitrogen 8 mg/dL (6-20); Total Bilirubin 0.8 mg/dL (0.15-1.2)
[2021-11-08 18:31] LABS: HCG, Serum Qual Negative (Negative)
[2021-11-08] MEDS: iohexol 300 mg/mL 100 mL Btl IV (18:43)
[2021-11-08 18:46] LABS: Alanine Aminotransferase 40 U/L (0-33); Alcohol Level 198 mg/dL (0-10); Anion Gap 35.5 (5-19); Aspartate Amino Transferase 91 U/L (0-32); Calcium 8.1 mg/dL (8.5-10.5); Chloride 96 mmol/L (98-107); Glomerular Filtration Rate 138.8 mL/min (90-130); Osmolality Calculated 276 mOsm/kg (285-295); Potassium 4.5 mmol/L (3.5-5.1); Sodium 134 mmol/L (136-145)
[2021-11-08 18:52] LABS: Alkaline Phosphatase 92 IU/L (35-105); Globulin 3.2 g/dL (1.3-4.6); Glucose 96 mg/dL (65-115); Total Protein 7.7 g/dL (6.6-8.7)
[2021-11-08 18:53] LABS: Carbon Dioxide 7 mmol/L (22-29)
[2021-11-08 19:04] LABS: Lipase 1720 U/L (13-60)
[2021-11-08] MEDS: LORazepam 2 mg/mL INJ 1 mL 1 MG IVP (19:14)
[2021-11-08 19:22] LABS: Lactate (Lactic Acid level) 3.7 mmol/L (0.5-2.2)
[2021-11-08 19:25] LABS: Add Urine Microscopic? YES; Bilirubin Urine Neg (Negative); Blood Urine 3+ (Negative); Glucose Urine UA Norm (Normal); Ketones Urine 2+ (Negative); Leukocyte Esterase Urine Negative (Negative); Nitrate Urine Negative (Negative); Protein Urine 1+ (Negative); Specific Gravity, Urine 1.025 (1.005-1.030); Urine Appearance Clear (CLEAR); Urine Color Yellow (Yellow); Urobilinogen Urine Norm (Negative); pH Urine 5 (5-7)
[2021-11-08 19:29] LABS: Bacteria Urine 1+ /hpf; Squamous Epithelial Cell Urine 15-25 /hpf (0-5); WBC Urine 0-4 /hpf (0-5)
[2021-11-08 19:30] LABS: Add Urine Culture? No; Amphetamines Screen Urine Negative (Negative); Barbiturates Screen Urine Negative (Negative); Benzodiazepines Screen Urine Negative (Negative); Cocaine Screen Urine Negative (Negative); Opiate Screen Urine Positive (Negative); PCP Screen Urine Negative (Negative); THC Screen Urine Negative (Negative)
[2021-11-08 19:38] LABS: ABG PCO2 22.8 mmHg (35-45); Arterial Blood Gas Hematocrit 42.6 % (37-47); Base Excess ABG -19.8 mmol/L (-2.0-2.0); Blood Gas Allen Test Pos; Blood Gas Sample Site Radial, right; Blood Gas Sample Type Arterial; HCO3 ABG 7.6 mmol/L (22-26)
[2021-11-08] MEDS: piperacillin-tazobactam 3.375 GM in sodium chloride 0.9% (plus) 50 ML IV ×2 (19:42→23:12)
[2021-11-08] MEDS: HYDROmorphone 1 mg/mL INJ 1 mL IVP (19:53)
[2021-11-08 20:51] LABS: ABG PH Result 7.13 (7.35-7.45)
[2021-11-08 21:00] LABS: Triglycerides 384 mg/dL (0-150)
[2021-11-08] MEDS: enoxaparin 60 mg/0.6 mL Syringe 50 MG SUBCUT (21:42)
[2021-11-08] MEDS: sodium chloride 0.9% 1,000 ML 200 ML IV (21:50)
--- NOTE | 2021-11-08 22:11 | PM.HP ---
Providers/Chief Complaint Admitting Physician: Jennifer Aguilar MD Chief Complaint: abd pain History of Present Illness Raquel Leger is a 36 year old female with h/o alcohol dependence, consumes approximately 1pint daily, past h/o alcohol induced pancreatitis March 2021 presented today with acute onset abdominal pain, nausea, multiple episodes of vomiting that started this morning. Last consumed alcohol yesterday. No past h/o alcohol withdrawal seizures. Ct abdomen here showed evidence of pancreatitis, no current signs of necrosis or abscess however note made of partial PV thrombosis. Elevated TG level at 384. Elvated lipase 1720. metabolic acidosis, hco3 7, lactate elevated t 3.7. Review of Systems General: Reports: 10 or more systems reviewed and unremarkable except in HPI and below Const: Denies: fever(s), chills or body aches Eyes: Denies: change in vision, blurry vision or photophobia ENMT: Reports: hoarseness; Denies: throat pain, enlarged tonsils, odynophagia or nasal congestion Card: Denies: chest pain, palpitations, irregular heart rhythm, edema, swelling of feet/ankles, lightheadedness, pre-syncope, dyspnea on exertion or orthopnea Resp: Denies: dyspnea, productive cough, non-productive cough, wheezing, stridor, pain on inspiration, change in phlegm color, hemoptysis or chest congestion GI: Denies: abdominal pain, nausea, vomiting, hematemesis, coffee ground emesis, dysphagia, heartburn, diarrhea, constipation, GI cramping, change in stool character, hematochezia or melena : Denies: flank pain, difficulty voiding, dysuria, urinary frequency, urinary urgency, urinary hesitancy or hematuria Musc: Denies: neck pain, back pain, extremity pain, joint swelling, joint warmth or deformity Neuro: Denies: headache(s), numbness in extremities, weakness in extremities, sensory changes, difficulty walking, frequent falls, dizziness, vertigo, behavioral changes, Slurred speech present or seizure-like activity Psych: Denies: anxiety, depression, suicidal ideation or homicidal ideation Endo: Denies: polyuria, polydipsia, tired all the time, cold intolerance or hot flashes Tho/Lymph: Denies: easy bruising or easy bleeding Medications/Allergies Home Medications Medication Instructions Recorded Confirmed Last Taken Type hydrocodone 5 mg-acetaminophen 325 1 tab PO Q4H PRN #20 tab 07/12/21 Unknown Rx mg tablet ondansetron HCl 4 mg tablet 4 mg PO Q6H PRN #14 tab 07/12/21 Unknown Rx (Zofran) tamsulosin 0.4 mg capsule (Flomax) 0.4 mg PO DAILY #10 cap 07/12/21 Unknown Rx Allergies Allergy/AdvReac Type Severity Reaction Status Date / Time No Known Allergies Allergy Verified 11/08/21 17:15 PFSH Acute Female Reproductive History: Date of last menstrual period: 11/07/21 Vitals/I&O/Wt Last Vital Signs Temp 97.6 F 11/08/21 17:13 Pulse 90 11/08/21 21:16 Resp 17 11/08/21 21:16 BP 125/90 11/08/21 21:16 Pulse Ox 92 11/08/21 21:16 11/08/21 11/08/21 11/08/21 06:59 14:59 22:59 Intake Total 1000 / 1000 Balance 1000 / 1000 Weight last 48 hrs Weight 53.07 kg Physical Exam Narrative: GEN: Awake, vomiting, in mild distress from pain. CVS: S1S2 N RS: CTA B/L all areas Abd: Soft, non distended, teender to palpation epigastrium region MEAT PROCESSOR: no focal neuro deficits ext: no clubbing, cyanosis or edema Data : 11/08/21 18:05 11/08/21 18:05 A&P Assessment and plan (1) Pancreatitis: Acute pancreatitis likely precipitated by binge alcohol drinking Alcohol level 198 Elevated lactate, increased anion gap likely 2/2 alcohol intoxication +/- SIRS from pancreatitis Also with portal vein thrombosis complicating pancreatitis IVF resuscitation Received 2L fluid bolus, currently on 200mg NS Recheck CMP and lactate in 4 hrs Empiric Zosyn No current signs of necrotizing pancreatitis currently Normal ALP, T . bili, no evidence of biliary obtsruction on CT alternating morphine/toradol for pain control Zofran prn for nausea/vomiting NPO Status: Acute (2) Alcohol dependence: Monitor for signs of withdrawal [facility] protocol Status: Acute (3) Portal vein thrombosis: Lovenox 1mg/kg q12h Likely as a complication of acute thrombophlebitis Zosyn as above for possibility of septic phlebitis Status: Acute (4) Lactic acidosis: IVF as above, likely related to combination of dehydration from vomiting, alcohol intoxication FLuid resuscitation as above repeat CMP Status: Acute (5) Thrombocytopenia: Baseline from 07/2021 appears to be at 104 Status: Acute Attestations Medical Necessity Statement*: anticipate >2midnight admission for management of acute pancreatitis, needs IVF, pain mgmt, Anticoagulation for portal vein thombosis, correction of dehydration Coding Level of Care Code Acute Synthetic Cloth Binding Cutter for [facility] Fwd Diagnoses Pancreatitis K85.90 Alcohol dependence F10.20 Portal vein thrombosis I81 Lactic acidosis E87.2 Thrombocytopenia D69.6
--- NOTE | 2021-11-08 22:26 | XRR_ITS ---
PROCEDURE INFORMATION: Exam: XR Chest Exam date and time: 11/08/2021 10:26 PM Age: 36 years old Clinical indication: Dyspnea; Additional info: Pancreatitis TECHNIQUE: Imaging protocol: XR of the chest. Views: 1 view. COMPARISON: CT abdomen pelvis w con* [id number] 11/08/2021 6:43 PM FINDINGS: Lungs: Unremarkable. No consolidation. Pleural spaces: Unremarkable. No pleural effusion. No pneumothorax. Heart/Mediastinum: Unremarkable. No cardiomegaly. Bones/joints: Unremarkable. XR/XR chest 1V portable [id number] IMPRESSION: No acute findings.
[2021-11-08] MEDS: LORazepam 2 mg/mL INJ 1 mL IVP (23:07)
[2021-11-08] MEDS: famotidine 20 mg/2 mL INJ IVP (23:11)
[2021-11-08 23:35] LABS: Alanine Aminotransferase 38 U/L (0-33); Albumin Level 4.4 g/dL (3.5-5.2); Alkaline Phosphatase 84 IU/L (35-105); Anion Gap 32.7 (5-19); Aspartate Amino Transferase 81 U/L (0-32); Blood Urea Nitrogen 5 mg/dL (6-20); Carbon Dioxide 10 mmol/L (22-29); Chloride 100 mmol/L (98-107); Glomerular Filtration Rate 179.6 mL/min (90-130); Glucose 88 mg/dL (65-115); Osmolality Calculated 283 mOsm/kg (285-295); Potassium 4.7 mmol/L (3.5-5.1); Sodium 138 mmol/L (136-145); Total Bilirubin 0.8 mg/dL (0.15-1.2); Total Protein 7.4 g/dL (6.6-8.7)
[2021-11-09] VITALS (34 sets, daily range): BP systolic 90–146; BP diastolic 62–96; PULSE 62–136; RESP 10–23; TEMP 36.6–36.8; O2SAT 90–99
[2021-11-09] MEDS: LORazepam 2 mg/mL INJ 1 mL IVP ×4 (00:26→05:26)
[2021-11-09] MEDS: ketorolac 30 mg/mL INJ 15 MG IVP (01:39)
[2021-11-09 03:35] LABS: Basophils % 0.2 %; Hematocrit 39.4 % (37.0-47.0); Hemoglobin 12.6 g/dL (11.5-15.3); Lymphocytes # 0.7 10^3/uL (0.8-4.8); Lymphocytes % 14.1 %; Mean Corpuscular Hemoglobin 35.7 pg (28.0-34.0); Mean Corpuscular Volume 111.6 fl (81-99); Mean Platelet Volume 11.2 fL (7.4-10.4); Monocytes # 0.3 10^3/uL (0.2-0.9); Neutrophils # 3.76 10^3/uL (1.8-7.7); Neutrophils % 76.9 %; Nucleated Red Blood Cells % 0 %; Platelet Count 58 10^3/cmm (130-400); Red Blood Count 3.53 10^6/uL (4.1-5.3); Red Cell Distribution Width 12.1 % (12.1-15.1); White Blood Count 4.9 10^3/uL (4.0-10.0)
[2021-11-09 03:50] LABS: Lactic Sepsis W/Reflex 1.3 mmol/L (0.5-2.2)
[2021-11-09 03:51] LABS: Alanine Aminotransferase 34 U/L (0-33); Albumin Level 4.2 g/dL (3.5-5.2); Alkaline Phosphatase 76 IU/L (35-105); Anion Gap 32.6 (5-19); Aspartate Amino Transferase 75 U/L (0-32); Blood Urea Nitrogen 4 mg/dL (6-20); Calcium 6.9 mg/dL (8.5-10.5); Chloride 101 mmol/L (98-107); Globulin 2.8 g/dL (1.3-4.6); Glomerular Filtration Rate 179.6 mL/min (90-130); Glucose 84 mg/dL (65-115); Magnesium 1.9 mg/dL (1.7-2.3); Osmolality Calculated 282 mOsm/kg (285-295); Potassium 4.6 mmol/L (3.5-5.1); Sodium 138 mmol/L (136-145); Total Bilirubin 0.8 mg/dL (0.15-1.2); Triglycerides 168 mg/dL (0-150)
[2021-11-09 04:06] LABS: Carbon Dioxide 9 mmol/L (22-29)
[2021-11-09] MEDS: sodium chloride 0.9% 1,000 ML 150 ML IV (04:20)
[2021-11-09 05:03] LABS: ABG PCO2 23.3 mmHg (35-45); ABG PH Result 7.21 (7.35-7.45); Arterial Blood Gas Hematocrit 39.1 % (37-47); Base Excess ABG -16.7 mmol/L (-2.0-2.0); Blood Gas Allen Test Pos; Blood Gas Operator Identificat JB; Blood Gas Sample Site Brachial, right; Blood Gas Sample Type Arterial; HCO3 ABG 9.3 mmol/L (22-26); Oxygen Device ROOM AIR
[2021-11-09] MEDS: piperacillin-tazobactam 3.375 GM in sodium chloride 0.9% (plus) 50 ML IV ×3 (05:26→22:07)
[2021-11-09] MEDS: sodium bicarbonate 50 MEQ in sodium chloride 0.45% 1,000 ML 100 MEQ IV ×2 (05:45→14:41)
[2021-11-09] MEDS: dexmedeTOMIDine 0.9 % NaCL 400 MCG/100 ML PREMIX 6.63 MCG IV (06:43)
--- NOTE | 2021-11-09 07:36 | PM.PN ---
Documented by User: Kaleb VenturaLIBERTAD STDANI 11/09/21 07:53 Subjective Subjective: Patient is lying in bed comfortably, difficult to wake due to Precedex. She continues to complain of abdominal pain, points to her epigastric region. Conversation is minimal. She denies any other concerns at this time. Medications: Reviewed: Yes Vitals/I&O/Wt Last Vital Signs Temp 97.8 F 11/09/21 05:39 Pulse 110 H 11/09/21 05:39 Resp 17 11/09/21 02:00 BP 136/96 11/09/21 02:00 Pulse Ox 96 11/09/21 02:00 11/08/21 11/09/21 11/09/21 22:59 06:59 14:59 Intake Total 1000 / 1000 268.715 / 1268.715 Output Total 750 / 750 Balance 1000 / 1000 -481.285 / 518.715 Weight last 48 hrs Weight 53.07 kg Weight 53.07 kg Physical Exam Narrative: General: Thin appearing female lying comfortably in bed. HEENT: Normocephalic, atraumatic. Cardiac: Regular rate and rhythm. S1 S2 present, no additional heart sounds noted. No murmurs rubs or gallops. Peripheral pulse 2+. GI: Soft, tender to palpation, non-distended. No organomegaly appreciated. Neuro: No focal neurological deficits. Extremities: No obvious abnormalities, no cyanosis, clubbing, or edema. Data : 11/09/21 02:50 11/09/21 02:50 Other Labs: MCV 111.6 ABG: pH 7.21, pCO2 23.3, pO2 100, HCO3 9.3, BE -16.7 Anion Gap: 32.6 Lactate 3.7 (11/08/21) Calcium 6.9 AST 75 ALT 34 Triglycerides 168 A&P Assessment and plan (1) Pancreatitis: Acute pancreatitis with history of alcoholism and binge alcohol drinking Alcohol level on admission is 198 Metabolic acidosis due to elevated lactate secondary to alcohol intoxication Portal vein thrombosis also present complicating pancreatitis Continue IV Fluids Continue CMP and lactate checks q4 hours Continue empiric Zosyn Continue alternating morphine/toradol for pain control Continue Zofran PRN for nausea/vomiting Continue NPO Status: Acute (2) Alcohol dependence: Continue to monitor for signs of withdrawal Continue Precedex CIWA protocol Status: Acute (3) Portal vein thrombosis: Likely due to complication of thrombophlebitis Continue Lovenox 1mg/kg q12h Continue Zosyn as above for possibility of septic phlebitis Status: Acute (4) Lactic acidosis: Continue IVF as above, likely related to combination of dehydration from vomiting, alcohol intoxication Continue fluid resuscitation as above Repeat Lactic Acid this AM is improved to 1.3 Status: Acute (5) Thrombocytopenia: Baseline from 07/2021 appears to be at 104 Status: Acute Coding Level of Care Code Acute Filler And Trimmer for g Fwd Diagnoses Pancreatitis K85.90 Alcohol dependence F10.20 Portal vein thrombosis I81 Lactic acidosis E87.2 Thrombocytopenia D69.6 Documented by User: Surendra Fernando MD 11/09/21 08:19 Subjective Subjective: Patient is lying in bed comfortably, difficult to wake due to Precedex. She continues to complain of abdominal pain, points to her epigastric region. Conversation is minimal. She denies any other concerns at this time. Agree with above. Appears comfortable currently. Physical Exam Narrative: General: Thin appearing female lying comfortably in bed. HEENT: Normocephalic, atraumatic. Cardiac: Regular rate and rhythm. S1 S2 present, no additional heart sounds noted. No murmurs rubs or gallops. Peripheral pulse 2+. Lungs are clear without any wheezing or crackles. GI: Soft, generalized tender to palpation, non-distended. No organomegaly appreciated. Neuro: No focal neurological deficits. Extremities: No obvious abnormalities, no cyanosis, clubbing, or edema. Data : 11/09/21 02:50 11/09/21 02:50 A&P Assessment and plan (1) Pancreatitis: Acute pancreatitis with history of alcoholism and binge alcohol drinking Alcohol level on admission is 198 Metabolic acidosis due to elevated lactate secondary to alcohol intoxication Portal vein thrombosis also present complicating pancreatitis Continue IV Fluids Continue CMP and lactate checks q4 hours Continue empiric Zosyn Continue alternating morphine/toradol for pain control Continue Zofran PRN for nausea/vomiting Continue n.p.o. status Status: Acute (2) Alcohol dependence: Ativan initiated for withdrawal Continue Precedex secondary to persistent withdrawal symptoms CIWA protocol Significant anion gap acidosis on admission. Recheck at 0900. This is most likely secondary to alcohol intake as well as pancreatitis. Doubt other alcohol ingestion but will follow up on anion gap. Methyl alcohol level has been ordered. We will check an ammonia level tomorrow as there was concern of some confusion by nursing although this could have been secondary to Ativan. Thiamine, folate have been initiated. Continue hydration Bicarb drip was initiated by on-call physician. Status: Acute (3) Portal vein thrombosis: Likely due to complication of thrombophlebitis Continue Lovenox 1mg/kg q12h Continue Zosyn as above for possibility of septic phlebitis Obtain a blood culture Status: Acute (4) Lactic acidosis: Status: Acute (5) Thrombocytopenia: Baseline from 07/2021 appears to be at 104 This is secondary to bone marrow suppression from alcohol intake as well as probable cirrhosis. Continue to follow closely. If platelet count becomes less than 50,000 we will have to reconsider full dose anticoagulation Status: Acute Plan Transaminitis. Secondary to alcoholism Full code Lovenox will suffice for DVT prophylaxis. Heparin for GI prophylaxis Attestations Medical Necessity Statement*: Will need continued hospital stay for significant alcohol withdrawal and pancreatitis. Critical Care Time: The high probability of a clinically significant, sudden or life threatening deterioration of the patient's [GI, metabolic, system(s) required my full and direct attention, intervention and personal management. The critical care time is as shown. This time is in addition to time spent performing any reported procedures but includes the following: [x] Data and vital sign review and interpretation [x] Patient assessment, examination and intervention [x] Documentation [x] Medication orders and management Critical Care Time (min): 44 Coding Level of Care Code Acute Filler And Trimmer for [facility] Fw Diagnoses Pancreatitis K85.90 Alcohol dependence F10.20 Portal vein thrombosis I81 Lactic acidosis E87.2 Thrombocytopenia D69.6
[2021-11-09] MEDS: thiamine 100 mg Tablet PO (09:13)
[2021-11-09] MEDS: multivitamin therapeutic Tablet 1 TAB PO (09:13)
[2021-11-09] MEDS: folic acid 1 mg Tablet PO (09:13)
[2021-11-09] MEDS: enoxaparin 60 mg/0.6 mL Syringe 50 MG SUBCUT ×2 (09:15→22:06)
[2021-11-09] MEDS: famotidine 20 mg/2 mL INJ IVP ×2 (09:21→22:07)
[2021-11-09 10:02] LABS: Alanine Aminotransferase 30 U/L (0-33); Albumin Level 3.9 g/dL (3.5-5.2); Alkaline Phosphatase 70 IU/L (35-105); Anion Gap 26.9 (5-19); Aspartate Amino Transferase 65 U/L (0-32); Blood Urea Nitrogen 5 mg/dL (6-20); Carbon Dioxide 12 mmol/L (22-29); Chloride 102 mmol/L (98-107); Globulin 2.6 g/dL (1.3-4.6); Glomerular Filtration Rate 138.8 mL/min (90-130); Glucose 87 mg/dL (65-115); Osmolality Calculated 281 mOsm/kg (285-295); Potassium 3.9 mmol/L (3.5-5.1); Sodium 137 mmol/L (136-145); Total Bilirubin 0.7 mg/dL (0.15-1.2); Total Protein 6.5 g/dL (6.6-8.7)
--- NOTE | 2021-11-09 10:08 | PC.PHAR ---
pt wouldnt stay awake and answer questions-ext med history shows last nothing filled recently-ext med history shows flomax 0.4mg daily 10d/s,norco 5/325mg 1 tab po q4h prn 3d/s and zofran 4mg q6h prn 2d/s last filled on 07/12/21
[2021-11-09 10:18] LABS: Ionized Calcium 1.1 mmol/L (1.1-1.4)
--- NOTE | 2021-11-09 11:09 | PC.CHAP ---
Pastoral Care Encounter/Spiritual Assessment Type of Contact [] Declined senior clinical sas programmer visit [] Patient/Family/Request visit [] Outpatient visit [] Follow-up visit [] Physician referral [] Code/Alert [x] Routine visit [] Staff referral [] Actively dying [x] Patient sleeping [] Family support [] [] Out of room [] Palliative care [] [] Receiving care in room [] Pre-surgical visit [] Trauma [] Long length of stay [x] ICU visit [] Other: Relational/Emotional Strength [] Patient feels connected with others/family/visitors/staff [] Distress [] Loneliness/isolation [] Abandonment Spirituality of Patient [] Person of Arcelia [] Attends Quaker of their [place]ia [] Believes in Prayer [] Reads Bible or Zoroastrianism materials [] There are Spiritual issues to be addressed Construction Stonemason Interventions [x] Prayer [] Active listening [] Non-anxious presence [] Spiritual/emotional support [] Crisis/trauma care [] Spiritual counseling [] Bereavement support [] Provided bereavement packet [] Provided Bible/devotional materials [] Provided toy/stuffed animal, coloring book to patient or family member [] Provided Communion [] Anointing/[place] [] Salvation [x] Completed spiritual assessment [] Other: Impact on Illness or Injury [] Angry [] Fearful [] Anxious [] Often cries [] Exhaustion [] Unable to work [] Unable to attend yazidism [] Unable to walk/stand [] Unable to read [] Unable to drive [] Unable to eat/drink [] Unable to sleep [] Unable to be with family [] Patient intubated [] Other: Summary Time spent with patient
[2021-11-09] MEDS: morphine 4 mg/mL SDV 1 mL 2 MG IVP (17:05)
[2021-11-09 17:53] LABS: Basophils % 0.2 %; Eosinophils % 0.2 %; Hematocrit 33.3 % (37.0-47.0); Hemoglobin 10.9 g/dL (11.5-15.3); Lymphocytes # 0.5 10^3/uL (0.8-4.8); Lymphocytes % 11.8 %; Mean Corpuscular HGB Conc 32.7 g/dL (30.0-36.0); Mean Corpuscular Hemoglobin 36.1 pg (28.0-34.0); Mean Corpuscular Volume 110.3 fl (81-99); Mean Platelet Volume 12.4 fL (7.4-10.4); Monocytes # 0.3 10^3/uL (0.2-0.9); Monocytes % 6.2 %; Neutrophils # 3.28 10^3/uL (1.8-7.7); Neutrophils % 80.9 %; Nucleated Red Blood Cells % 0 %; Platelet Count 45 10^3/cmm (130-400); Red Blood Count 3.02 10^6/uL (4.1-5.3); Red Cell Distribution Width 12.1 % (12.1-15.1); White Blood Count 4.1 10^3/uL (4.0-10.0)
[2021-11-09 18:16] LABS: Anion Gap 24.5 (5-19); Blood Urea Nitrogen 7 mg/dL (6-20); Calcium 7.8 mg/dL (8.5-10.5); Carbon Dioxide 15 mmol/L (22-29); Chloride 101 mmol/L (98-107); Glomerular Filtration Rate 112.5 mL/min (90-130); Glucose 76 mg/dL (65-115); Osmolality Calculated 281 mOsm/kg (285-295); Potassium 3.5 mmol/L (3.5-5.1); Sodium 137 mmol/L (136-145)
[2021-11-09] MEDS: dexmedeTOMIDine 0.9 % NaCL 400 MCG/100 ML PREMIX IV (20:50)
[2021-11-10] VITALS (24 sets, daily range): BP systolic 90–144; BP diastolic 56–106; PULSE 53–129; RESP 14–28; TEMP 36.7–37.6; O2SAT 93–98
[2021-11-10] MEDS: LORazepam 2 mg/mL INJ 1 mL IVP ×5 (01:03→21:03)
[2021-11-10] MEDS: sodium bicarbonate 50 MEQ in sodium chloride 0.45% 1,000 ML 100 MEQ IV (01:14)
[2021-11-10] MEDS: morphine 4 mg/mL SDV 1 mL 2 MG IVP (04:07)
[2021-11-10] MEDS: piperacillin-tazobactam 3.375 GM in sodium chloride 0.9% (plus) 50 ML IV ×3 (05:28→21:33)
[2021-11-10 05:45] LABS: Basophils % 0.2 %; Eosinophils % 0.7 %; Hematocrit 31.7 % (37.0-47.0); Hemoglobin 10.5 g/dL (11.5-15.3); Lymphocytes # 0.7 10^3/uL (0.8-4.8); Lymphocytes % 17.2 %; Mean Corpuscular HGB Conc 33.1 g/dL (30.0-36.0); Mean Corpuscular Hemoglobin 35.7 pg (28.0-34.0); Mean Corpuscular Volume 107.8 fl (81-99); Mean Platelet Volume 11.4 fL (7.4-10.4); Monocytes # 0.2 10^3/uL (0.2-0.9); Neutrophils # 3.28 10^3/uL (1.8-7.7); Neutrophils % 76.5 %; Nucleated Red Blood Cells % 0 %; Platelet Count 38 10^3/cmm (130-400); Red Blood Count 2.94 10^6/uL (4.1-5.3); Red Cell Distribution Width 11.9 % (12.1-15.1); White Blood Count 4.3 10^3/uL (4.0-10.0)
[2021-11-10 06:04] LABS: Alanine Aminotransferase 24 U/L (0-33); Albumin Level 3.5 g/dL (3.5-5.2); Alkaline Phosphatase 71 IU/L (35-105); Anion Gap 22.5 (5-19); Aspartate Amino Transferase 57 U/L (0-32); Blood Urea Nitrogen 7 mg/dL (6-20); Calcium 8.2 mg/dL (8.5-10.5); Carbon Dioxide 19 mmol/L (22-29); Chloride 99 mmol/L (98-107); Globulin 2.8 g/dL (1.3-4.6); Glomerular Filtration Rate 138.8 mL/min (90-130); Glucose 66 mg/dL (65-115); Magnesium 1.8 mg/dL (1.7-2.3); Osmolality Calculated 280 mOsm/kg (285-295); Potassium 3.5 mmol/L (3.5-5.1); Sodium 137 mmol/L (136-145); Total Bilirubin 0.9 mg/dL (0.15-1.2); Total Protein 6.3 g/dL (6.6-8.7)
[2021-11-10 06:05] LABS: Ammonia 37 umol/L (11-51)
[2021-11-10 06:11] LABS: Slide Review Slide Review Perform
--- NOTE | 2021-11-10 07:21 | P.PN_ITS ---
Documented by User: Kaleb LIBERTAD Ventura STDANI 11/10/21 08:17 Subjective Subjective: Patient's abdominal pain continues to improve. Explains that she is hungry and could try to eat today. She describes as being out of it and feeling tired. Patient was able to have increased participation in conversation today. Patient has continued to receive Precedex and Ativan for withdrawal symptoms. Patient inquired about when she would be able to go home. Medications: Reviewed: Yes Vitals/I&O/Wt Last Vital Signs Temp 98.0 F 11/10/21 04:00 Pulse 59 L 11/10/21 05:16 Resp 15 11/10/21 04:30 BP 109/79 11/10/21 04:30 Pulse Ox 94 11/10/21 04:30 11/09/21 11/10/21 11/10/21 22:59 06:59 14:59 Intake Total 129.831 / 5715.092 9352 / 2246.682 Output Total 120 / 120 Balance 9.831 / 9426.343 6477 / 2126.682 Weight last 48 hrs Weight 53.07 kg Weight 53.07 kg Weight 53.07 kg Physical Exam Narrative: General: Thin, tired appearing female lying in bed comfortably. HEENT: Normocephalic, atraumatic. Cardiac: Regular rate and rhythm. S1 S2 present, no additional heart sounds present. No murmurs rubs or gallops. Peripheral pulse 2+. Respiratory: Lungs clear to auscultation. No wheezes rales or rhonchi. Air entry equal bilaterally. GI: Soft, mildy tender to palpation, nondistended, normoactive bowel sounds. No organomegaly appreciated. Extremities: No obvious abnormalities, no cyanosis clubbing or edema. Data : 11/10/21 05:26 11/10/21 05:26 Other Labs: MCV 107.8 Calcium 8.2 AST 57 ALT 24 Total Protein 6.3 Ammonia 37 Micro: Microbiology 11/09/21 09:10 Blood Culture - Preliminary Blood SPECIMEN COLLECTED 11/09/21 09:06 Blood Culture - Preliminary Blood SPECIMEN COLLECTED A&P Assessment and plan (1) Pancreatitis: Acute pancreatitis with history of alcoholism and binge alcohol drinking Alcohol level on admission is 198 Metabolic acidosis due to lactic acidosis is improving, lactate 11/09/21 normal at 1.3 Portal vein thrombosis also present complicating pancreatitis, will hold lovenox due to thrombocytopenia Continue IV Fluids Continue empiric Zosyn Continue alternating morphine for pain control Continue Zofran PRN for nausea/vomiting Progress diet to clear soft liquids if able to safely eat and drink after discontinuing Precedex Status: Acute (2) Alcohol dependence: Continue Ativan for withdrawal Stop Precedex Continue [facility] protocol for alcohol withdrawal monitoring Patient presented with significant anion gap acidosis on admission. Anion gap trending downward this AM, now at 22.5. This is most likely secondary to alcohol intake as well as pancreatitis. Patient denied ingestion of other alcohol containing substances. Methyl alcohol level and volatile analysis pending. Continue Thiamine and Folate Continue hydration Bicarb drip was initiated by on-call physician. Status: Acute (3) Portal vein thrombosis: Likely due to complication of thrombophlebitis Hold Lovenox 1mg/kg q12h secondary to thrombocytopenia Continue Zosyn as above for possibility of septic phlebitis Blood culture pending Status: Acute (4) Lactic acidosis: Continue IVF as above, likely related to combination of dehydration from vomiting, alcohol intoxication Continue fluid resuscitation as above Lactate 11/09/21 improved 1.3 Status: Acute (5) Thrombocytopenia: Baseline from 07/2021 appears to be at 104, platelet count continues to trend downward, this AM is 38 This is secondary to bone marrow suppression from alcohol intake as well as probable cirrhosis. Continue to follow closely. Status: Acute Plan Transaminitis. Secondary to alcoholism Full code Lovenox will suffice for DVT prophylaxis, currently holding due to thrombocy topenia Pepcid for GI prophylaxis Coding Level of Care Code Acute Disease Control Inspector for [facility] Fwd Diagnoses Pancreatitis K85.90 Alcohol dependence F10.20 Portal vein thrombosis I81 Lactic acidosis E87.2 Thrombocytopenia D69.6 Documented by User: Surendra Fernando MD 11/10/21 08:51 Subjective Subjective: Patient's abdominal pain continues to improve. Explains that she is hungry and could try to eat today. She describes as being out of it and feeling tired. Patient was able to have increased participation in conversation today. Patient has continued to receive Precedex and Ativan for withdrawal symptoms. Patient inquired about when she would be able to go home. Agree with above. I interviewed the patient as well. She reports she is overall improving. Physical Exam Narrative: General: Thin, tired appearing female lying in bed comfortably. HEENT: Normocephalic, atraumatic. Cardiac: Regular rate and rhythm. S1 S2 present, no additional heart sounds present. No murmurs rubs or gallops. Peripheral pulse 2+. Respiratory: Lungs clear to auscultation. No wheezes rales or rhonchi. Air entry equal bilaterally. GI: Soft, mildy tender to palpation, nondistended, normoactive bowel sounds. No organomegaly appreciated. Extremities: No obvious abnormalities, no cyanosis clubbing or edema. Agree with exam as documented above. I examined the patient as well. Data : 11/10/21 05:26 11/10/21 05:26 A&P Assessment and plan (1) Pancreatitis: Acute pancreatitis with history of alcoholism and binge alcohol drinking Alcohol level on admission is 198 Metabolic acidosis due to lactic acidosis is improving, lactate 11/09/21 normal at 1.3 Portal vein thrombosis also present complicating pancreatitis, will hold lovenox due to thrombocytopenia. Repeat platelet count this afternoon and if increasing will reinitiate Lovenox. I am concerned of the overall trend of her platelet count. Continue IV Fluids change IV fluids to normal saline from bicarbonate. Continue empiric Zosyn Continue morphine as needed for pain control Continue Zofran PRN for nausea/vomiting Progress diet to clear soft liquids if able to safely eat and drink after discon tinuing Precedex. Will advance diet further to full liquids if tolerated well. Status: Acute (2) Alcohol dependence: Status: Acute (3) Portal vein thrombosis: Likely due to complication of thrombophlebitis Hold Lovenox 1mg/kg q12h secondary to thrombocytopenia Continue Zosyn as above for possibility of septic phlebitis Blood culture pending Hopefully can restart Lovenox soon if platelet count starts to recover. Status: Acute (4) Lactic acidosis: Status: Acute (5) Thrombocytopenia: Baseline from 07/2021 appears to be at 104, platelet count continues to trend downward, this AM is 38 This is secondary to bone marrow suppression from alcohol intake as well as probable cirrhosis. Continue to follow closely. Holding Lovenox currently but will restart when platelet count rebounds. Status: Acute Attestations Medical Necessity Statement*: Needs continued hospitalization secondary to acute pancreatitis, with severe thrombocytopenia and portal vein thrombosis. Critical Care Time: The high probability of a clinically significant, sudden or life threatening deterioration of the patient's [GI, metabolic, hematologic, vascular system(s) required my full and direct attention, intervention and personal management. The critical care time is as shown. This time is in addition to time spent performing any reported procedures but includes the follo wing: [x] Data and vital sign review and interpretation [x] Patient assessment, examination and intervention [x] Documentation [x] Medication orders and management Critical Care Time (min): 31 Coding Level of Care Code Acute Disease Control Inspector for [facility] Diagnoses Pancreatitis K85.90 Alcohol dependence F10.20 Portal vein thrombosis I81 Lactic acidosis E87.2 Thrombocytopenia D69.6
[2021-11-10] MEDS: sodium chloride 0.9% 1,000 ML 100 ML IV ×2 (08:55→23:58)
[2021-11-10] MEDS: thiamine 100 mg Tablet PO (09:59)
[2021-11-10] MEDS: famotidine 20 mg/2 mL INJ IVP ×2 (09:59→21:31)
[2021-11-10] MEDS: folic acid 1 mg Tablet PO (09:59)
[2021-11-10] MEDS: multivitamin therapeutic Tablet 1 TAB PO (09:59)
--- NOTE | 2021-11-10 16:21 | PC.NURSE ---
1615 Saying she wants to go home, and trying to take wires loose. Talked with for several minutes to encourage her to stay. Finally she did lie back down.
[2021-11-10 17:51] LABS: Basophils % 0.6 %; Eosinophils % 0.8 %; Hematocrit 34.7 % (37.0-47.0); Hemoglobin 11.8 g/dL (11.5-15.3); Lymphocytes # 0.7 10^3/uL (0.8-4.8); Lymphocytes % 12.4 %; Mean Corpuscular Hemoglobin 35.5 pg (28.0-34.0); Mean Corpuscular Volume 104.5 fl (81-99); Mean Platelet Volume 11.7 fL (7.4-10.4); Monocytes # 0.2 10^3/uL (0.2-0.9); Monocytes % 4.4 %; Neutrophils # 4.21 10^3/uL (1.8-7.7); Neutrophils % 80.5 %; Nucleated Red Blood Cells % 0 %; Platelet Count 42 10^3/cmm (130-400); Red Blood Count 3.32 10^6/uL (4.1-5.3); Red Cell Distribution Width 11.7 % (12.1-15.1); White Blood Count 5.2 10^3/uL (4.0-10.0)
--- NOTE | 2021-11-10 20:40 | PC.NURSE ---
AMA Discussion/CIWAA assessment Patient remains confused, oriented only to self, and is exhibiting increased anxiety with increased movement/restlessness. Patient adamantly stating I'm leaving AMA, I'm going home. Situation verbally deescalated: Health status discussed with patient, AMA education provided. Following discussion, patient stated she would try to stay overnight. Dr. Aguilar notified of discussion. CIWAA scale completed with a result of 13. Ativan administered per protocol, see MAR.
--- NOTE | 2021-11-10 21:15 | PC.NURSE ---
Fall Bed alarm went off in patient room. Upon assessment, patient found sitting in floor beside bed. Patient appears anxious but unharmed: all vitals stable, no bruising/wounds found, patient states did not hit her head and has no pain. When asked what occurred, patient states I wanted out of bed but I was weak so I eased myself down. Patient then states I've never been this weak before in my life, and began to cry. supervisor policy change clerks and Dr. Aguilar notified. Dr. Aguilar at patient bedside shortly afterwards; education provided on treatment goals and ETOH withdrawal. Verbal order received to restart precedex drip per protocol. Medication administered per NOV. Fall education reinforced, fall bracelet remains on patient, fall risk sign remains on door, and bed alarm reset. Patient verbalized understanding of education; reinforcement provided as needed.
[2021-11-10] MEDS: dexmedeTOMIDine 0.9 % NaCL 400 MCG/100 ML PREMIX IV (21:36)
[2021-11-11] VITALS (24 sets, daily range): BP systolic 97–131; BP diastolic 64–97; PULSE 61–98; RESP 12–22; TEMP 36.6–37.5; O2SAT 93–96
--- NOTE | 2021-11-11 01:15 | PC.NURSE ---
Fall Upon hearing noise from patient room, patient found sitting in floor in front of bed with stool around body. Bed alarm did not alarm with patient movement. Assessment of patient completed: all vitals stable, patient states no pain or new injuries, no injuries observed. Nurse and supervisor fertilizer in room. Patient assisted to bedside commode and then back to bed with 2x assist. Skin care provided, gown changed and bedsheets smoothed. Fall risk education reinforced, fall risk bracelet remains on patient, fall risk sign remains on door, bed alarm turned off and back on, bed alarm settings checked by charge nurse. Patient care delegated to nurse as 1:1 care for increased observation. Dr. Aguilar notified, no new orders received.
[2021-11-11 03:53] LABS: Basophils % 0.6 %; Eosinophils # 0.1 10^3/uL (0.0-0.8); Eosinophils % 1.3 %; Hematocrit 30.6 % (37.0-47.0); Hemoglobin 10.3 g/dL (11.5-15.3); Lymphocytes # 0.5 10^3/uL (0.8-4.8); Lymphocytes % 11.5 %; Mean Corpuscular HGB Conc 33.7 g/dL (30.0-36.0); Mean Corpuscular Hemoglobin 35.6 pg (28.0-34.0); Mean Corpuscular Volume 105.9 fl (81-99); Mean Platelet Volume 11.5 fL (7.4-10.4); Monocytes # 0.2 10^3/uL (0.2-0.9); Monocytes % 4.7 %; Neutrophils # 3.81 10^3/uL (1.8-7.7); Neutrophils % 81.3 %; Nucleated Red Blood Cells % 0 %; Platelet Count 41 10^3/cmm (130-400); Red Blood Count 2.89 10^6/uL (4.1-5.3); Red Cell Distribution Width 11.7 % (12.1-15.1); White Blood Count 4.7 10^3/uL (4.0-10.0)
[2021-11-11 04:18] LABS: Alanine Aminotransferase 31 U/L (0-33); Albumin Level 3.3 g/dL (3.5-5.2); Alkaline Phosphatase 104 IU/L (35-105); Anion Gap 19.5 (5-19); Aspartate Amino Transferase 77 U/L (0-32); Blood Urea Nitrogen 3 mg/dL (6-20); Calcium 8.3 mg/dL (8.5-10.5); Carbon Dioxide 21 mmol/L (22-29); Chloride 96 mmol/L (98-107); Globulin 2.3 g/dL (1.3-4.6); Glomerular Filtration Rate 138.8 mL/min (90-130); Glucose 78 mg/dL (65-115); Osmolality Calculated 273 mOsm/kg (285-295); Sodium 134 mmol/L (136-145); Total Bilirubin 0.8 mg/dL (0.15-1.2); Total Protein 5.6 g/dL (6.6-8.7)
[2021-11-11 04:27] LABS: Potassium 2.5 mmol/L (3.5-5.1)
[2021-11-11] MEDS: lidocaine 1% 5 ML in potassium chloride premix 100 ML 25 ML IV ×3 (04:53→18:43)
[2021-11-11] MEDS: piperacillin-tazobactam 3.375 GM in sodium chloride 0.9% (plus) 50 ML IV ×3 (06:03→21:38)
[2021-11-11 07:47] LABS: Magnesium 1.7 mg/dL (1.7-2.3)
[2021-11-11] MEDS: dexmedeTOMIDine 0.9 % NaCL 400 MCG/100 ML PREMIX 9.29 MCG IV (08:03)
--- NOTE | 2021-11-11 08:07 | CT_ITS ---
WS: [id number] CT HEAD NONCONTRAST HISTORY: confusion, fall TECHNIQUE: Contiguous axial imaging performed through the brain in 2.5 mm imaging. Bone and soft tiss ue windows. Sagittal and coronal reformats reviewed. All CT scans at [facility] use at least one of these dose optimization techniques: automated exposure control; mA and/or kV adjustment per pa tient size (includes targeted exams where dose is matched to clinical indication); or iterative recon struction. DLP: 840.63 mGy.cm COMPARISON: None available. No acute intracranial hemorrhage, midline shift or mass effect. No atrophy or prior infarcts or herniation. Ventricles: Normal size with no hydrocephalus. Paranasal sinuses: As visualized are clear. Mastoid air cells: Well pneumatized. Calvarium and scalp: Skull is intact with no soft tissue edema or swelling. CT/CT head wo con* [id number] IMPRESSION: Negative head CT.
[2021-11-11] MEDS: famotidine 20 mg/2 mL INJ IVP (10:01)
--- NOTE | 2021-11-11 10:01 | PC.CHAP ---
Pastoral Care Encounter/Spiritual Assessment Type of Contact [] Declined machine deburrer visit [] Patient/Family/Request visit [] Outpatient visit [] Follow-up visit [] Physician referral [] Code/Alert [x] Routine visit [] Staff referral [] Actively dying [] Patient sleeping [] Family support [] [] Out of room [] Palliative care [] [] Receiving care in room [] Pre-surgical visit [] Trauma [] Long length of stay [x] ICU visit [x] Other: sitter Relational/Emotional Strength [] Patient feels connected with others/family/visitors/staff [] Distress [] Loneliness/isolation [] Abandonment Spirituality of Patient [] Person of [place] [] Attends Anglican of their [place] [] Believes in Prayer [] Reads Bible or Scientologist materials [] There are Spiritual issues to be addressed Senior Electrical Estimator Interventions [x] Prayer [x] Active listening [x] Non-anxious presence [x] Spiritual/emotional support [] Crisis/trauma care [] Spiritual counseling [] Bereavement support [] Provided bereavement packet [] Provided Bible/devotional materials [] Provided toy/stuffed animal, coloring book to patient or family member [] Provided Communion [] Anointing/[place] [] Salvation [x] Completed spiritual assessment [] Other: Impact on Illness or Injury [] Angry [] Fearful [] Anxious [] Often cries [] Exhaustion [] Unable to work [] Unable to attend anabaptism [] Unable to walk/stand [] Unable to read [] Unable to drive [] Unable to eat/drink [] Unable to sleep [] Unable to be with family [] Patient intubated [] Other: Summary resting well... feeling somewhat better Time spent with patient 5 min
[2021-11-11] MEDS: folic acid 1 mg Tablet PO (10:22)
[2021-11-11] MEDS: multivitamin therapeutic Tablet 1 TAB PO (10:22)
[2021-11-11] MEDS: thiamine 100 mg Tablet PO (10:22)
--- NOTE | 2021-11-11 10:28 | PM.PN ---
Subjective Subjective: Raquel is awake this morning. She denies any specific complaints of abdominal pain. She is able to eat without nausea. She denies any headache. Apparently last night Precedex was restarted. She apparently got up without supervision was found on the floor. I cannot find a good record of withdrawal. She did also receive some Ativan last night. Medications: Reviewed: Yes Vitals/I&O/Wt Last Vital Signs Temp 99.5 F 11/11/21 03:00 Pulse 70 11/11/21 06:00 Resp 22 H 11/11/21 06:00 BP 109/76 11/11/21 06:00 Pulse Ox 93 11/11/21 05:00 11/10/21 11/11/21 11/11/21 22:59 06:59 14:59 Intake Total 1531.990 / 2429.418 64.595 / 2494.013 71.418 / 71.418 Output Total 625 / 1425 Balance 906.990 / 1004.418 64.595 / 1069.013 71.418 / 71.418 Weight last 48 hrs Weight 53.479 kg Weight 53.07 kg Physical Exam Narrative: General: No distress, alert and oriented Neck supple with no thyromegaly or lymphadenopathy Cardiac: Regular rate and rhythm without murmur Lungs clear Abdomen is soft nontender positive bowel sounds Extremities no cyanosis clubbing or edema Data : 11/11/21 03:12 11/11/21 03:12 Micro: Microbiology 11/09/21 09:10 Blood Culture - Preliminary Blood NEGATIVE TO DATE 11/09/21 09:06 Blood Culture - Preliminary Blood NEGATIVE TO DATE A&P Assessment and plan (1) Pancreatitis: Acute pancreatitis with history of alcoholism and binge alcohol drinking Alcohol level on admission is 198 Metabolic acidosis has resolved Portal vein thrombosis also present complicating pancreatitis. Platelet counts had dropped yesterday but have now stabilized and will resume Lovenox with plans to change to Eliquis on discharge. Reduce IV fluids Continue empiric Zosyn At this point can discontinue morphine as patient does not complain of any discomfort Continue Zofran PRN for nausea/vomiting Status: Acute (2) Alcohol dependence: Will stop Precedex and Ativan, monitoring for withdrawal Continue [facility] protocol for alcohol withdrawal monitoring Continue Thiamine and Folate Offer rehabilitation services Status: Acute (3) Portal vein thrombosis: Likely due to complication of pancreatitis Resume Lovenox as platelet count has stabilized Continue Zosyn as above for possibility of septic phlebitis Blood culture pending Status: Acute (4) Lactic acidosis: Resolved Status: Acute (5) Thrombocytopenia: Baseline from 07/2021 appears to be at 104. This is secondary to bone marrow suppression from alcohol intake as well as probable cirrhosis. Stabilized currently. Resume Lovenox. Status: Acute Plan Transaminitis. Secondary to alcoholism. Improved Marked hypokalemia, supplement Confusion last night. May have been secondary to Ativan. Will discontinue this. CT head checked as fall was a possibility. This was negative. Full code Lovenox will suffice for DVT prophylaxis Protonix for GI prophylaxis Attestations Medical Necessity Statement*: Needs continued hospitalization to monitor for any further withdrawal after stopping Ativan and Precedex, initiation of diet, close monitoring of platelets in this patient with portal vein thrombosis Coding Level of Care Code Acute Rectangular Tank Cooper for [place] Fwd Diagnoses Pancreatitis K85.90 Alcohol dependence F10.20 Portal vein thrombosis I81 Lactic acidosis E87.2 Thrombocytopenia D69.6
[2021-11-11] MEDS: sodium chloride 0.9% 1,000 ML 100 ML IV (10:56)
[2021-11-11 16:05] LABS: Platelet Count 41 10^3/cmm (130-400)
[2021-11-11 16:48] LABS: Potassium 3.4 mmol/L (3.5-5.1)
[2021-11-11] MEDS: pantoprazole DR 40 mg Tablet PO (18:28)
[2021-11-11] MEDS: enoxaparin 60 mg/0.6 mL Syringe 50 MG SUBCUT (18:28)
[2021-11-11] MEDS: HYDROcodone-acetaminophen 5-325 mg Tablet 1 TAB PO (18:42)
--- NOTE | 2021-11-11 20:12 | PC.NURSE ---
Shift Note: Pt more alert at end of shift. She is still unsteady on her feet and implusive, so a sitter in present in room. Her CIWA scores this shift ranged 3-8. She was incontinent of BM at beginning of shift, she is now using call light for assistance to BSC. HSHe has received magnesium replacement and 2 40mEq KCL replacement per IV. Frequent safety and comfort rounds continue. Orders and/or nursing care completed as indicated. Patient monitored for response to intervention and treatment(s). Education provided includes Hydrocodone, Ativan and potassium. Patient verbalizes understanding of paln of careand medications but reinforcement needed. Will continue to monitor.
--- NOTE | 2021-11-11 21:25 | PC.NURSE ---
Ativan Patient's CIWAA score 11. PRN ativan for CIWAA withdrawal discontinued; Dr. Valladares contacted and telephone order received for 2 mg Ativan IVP PRN PRN per CIWAA protocol. See MAR for administration.
[2021-11-11] MEDS: LORazepam 2 mg/mL INJ 1 mL IVP (21:37)
--- NOTE | 2021-11-11 21:40 | PC.NURSE ---
Family Update Patient's boyfriend called unit seeking update on patient. Patient gave verbal permission for boyfriend to receive information; Unit's mobile phone utilized so patient could speak with him personally.
[2021-11-11] MEDS: sodium chloride 0.9% 1,000 ML 75 ML IV (23:49)
[2021-11-12] VITALS (15 sets, daily range): BP systolic 119–157; BP diastolic 86–107; PULSE 6–91; RESP 14–22; TEMP 36.4–36.8; O2SAT 94–99; BMI 21.3
[2021-11-12] MEDS: HYDROcodone-acetaminophen 5-325 mg Tablet 1 TAB PO ×3 (01:22→12:20)
[2021-11-12] MEDS: LORazepam 2 mg/mL INJ 1 mL IVP (01:37)
[2021-11-12 05:07] LABS: Basophils % 0.7 %; Eosinophils # 0.1 10^3/uL (0.0-0.8); Eosinophils % 2.3 %; Hematocrit 32.3 % (37.0-47.0); Lymphocytes # 0.7 10^3/uL (0.8-4.8); Lymphocytes % 16.6 %; Mean Corpuscular HGB Conc 34.1 g/dL (30.0-36.0); Mean Corpuscular Hemoglobin 35.7 pg (28.0-34.0); Mean Corpuscular Volume 104.9 fl (81-99); Mean Platelet Volume 11.2 fL (7.4-10.4); Monocytes # 0.2 10^3/uL (0.2-0.9); Monocytes % 5.5 %; Neutrophils # 3.22 10^3/uL (1.8-7.7); Nucleated Red Blood Cells % 0 %; Platelet Count 64 10^3/cmm (130-400); Red Blood Count 3.08 10^6/uL (4.1-5.3); Red Cell Distribution Width 11.8 % (12.1-15.1); White Blood Count 4.4 10^3/uL (4.0-10.0)
[2021-11-12 05:25] LABS: Alanine Aminotransferase 119 U/L (0-33); Albumin Level 3.6 g/dL (3.5-5.2); Alkaline Phosphatase 145 IU/L (35-105); Anion Gap 12.2 (5-19); Aspartate Amino Transferase 220 U/L (0-32); Blood Urea Nitrogen 1 mg/dL (6-20); Calcium 8.8 mg/dL (8.5-10.5); Carbon Dioxide 29 mmol/L (22-29); Chloride 100 mmol/L (98-107); Globulin 2.7 g/dL (1.3-4.6); Glomerular Filtration Rate 250.3 mL/min (90-130); Glucose 103 mg/dL (65-115); Osmolality Calculated 282 mOsm/kg (285-295); Potassium 3.2 mmol/L (3.5-5.1); Sodium 138 mmol/L (136-145); Total Bilirubin 0.8 mg/dL (0.15-1.2); Total Protein 6.3 g/dL (6.6-8.7)
--- NOTE | 2021-11-12 05:40 | PC.NURSE ---
Early Pain Med Dose Patient complaining of increasing abdominal pain, hydrocodone dose not due until 721. Dr. Aguilar contacted and verbal order received to give the PRN dose now. Medication administered per NOV.
[2021-11-12] MEDS: piperacillin-tazobactam 3.375 GM in sodium chloride 0.9% (plus) 50 ML IV (06:28)
[2021-11-12] MEDS: enoxaparin 60 mg/0.6 mL Syringe 50 MG SUBCUT (06:33)
[2021-11-12] MEDS: folic acid 1 mg Tablet PO (07:36)
[2021-11-12] MEDS: pantoprazole DR 40 mg Tablet PO (07:36)
[2021-11-12] MEDS: thiamine 100 mg Tablet PO (07:36)
[2021-11-12] MEDS: multivitamin therapeutic Tablet 1 TAB PO (07:37)
[2021-11-12] MEDS: potassium chloride ER 20 mEq Tablet 40 MEQ PO ×2 (07:37→12:21)
--- NOTE | 2021-11-12 11:40 | PC.CHAP ---
Pastoral Care Encounter/Spiritual Assessment Type of Contact [] Declined cylinder machine operator visit [] Patient/Family/Request visit [] Outpatient visit [] Follow-up visit [] Physician referral [] Code/Alert [x] Routine visit [] Staff referral [] Actively dying [x] Patient sleeping [] Family support [] [] Out of room [] Palliative care [] [] Receiving care in room [] Pre-surgical visit [] Trauma [] Long length of stay [x] ICU visit [] Other: Relational/Emotional Strength [] Patient feels connected with others/family/visitors/staff [] Distress [] Loneliness/isolation [] Abandonment Spirituality of Patient [] Person of [place] [] Attends [employer] of their [place] [] Believes in Prayer [] Reads Bible or Religion materials [] There are Spiritual issues to be addressed Intermediate Teacher Interventions [x] Prayer [] Active listening [] Non-anxious presence [] Spiritual/emotional support [] Crisis/trauma care [] Spiritual counseling [] Bereavement support [] Provided bereavement packet [] Provided Bible/devotional materials [] Provided toy/stuffed animal, coloring book to patient or family member [] Provided Communion [] Anointing/[place] [] Salvation [x] Completed spiritual assessment [] Other: Impact on Illness or Injury [] Angry [] Fearful [] Anxious [] Often cries [] Exhaustion [] Unable to work [] Unable to attend baptist [] Unable to walk/stand [] Unable to read [] Unable to drive [] Unable to eat/drink [] Unable to sleep [] Unable to be with family [] Patient intubated [] Other: Summary Time spent with patient
--- NOTE | 2021-11-12 14:13 | P.DS_ITS ---
Discharge Providers Date of Admission: 11/08/21 22:26 Date of Discharge: November 12, 2021 Attending Provider at Admission: Jennifer Aguilar MD Attending Provider at Discharge: Surnedra Fernando MD Diagnoses at Discharge Discharge Diagnosis (1) Pancreatitis: Status: Acute (2) Alcohol dependence: Status: Acute (3) Portal vein thrombosis: Status: Acute (4) Lactic acidosis: Status: Acute (5) Thrombocytopenia: Status: Acute Reason for Visit Reason for Visit: abd pain Hospital Course Hospital Course Raquel presented to the hospital with abdominal pain, intoxication and ultimately withdrawal, anion gap acidosis, and pancreatitis. She was placed on empiric's Zosyn and blood cultures were drawn. Anticoagulation was initiated for portal vein thrombosis which was seen on CT. Pain control was initiated. She was initially admitted to the ICU, and shortly thereafter placed on Precedex secondary to some withdrawal symptoms. During her hospital course she gradually improved. Platelets did decrease some before rebounding at the end of her hospital course. Pancreatitis symptomatology resolved, with her tolerating a full diet with no pain. She had some balance issues that were slowly resolving in the hospital. These were present on admission. CT head did not demonstrate any obvious CVA. Physical therapy consultation was obtained and they recommended walker. I discussed with the patient numerous times concerns with her ambulation, alcohol intake, need for further hospital scone for close monitoring but she reported she was going home on November 12. Family came in and believe they could handle her at home. Offered inpatient treatment for alcoholism but she preferred to go home and consider outpatient of which information was given. I discussed the risks and benefits of anticoagulation with her, as well as the need for close follow-up. Ideally I would have had her stay in the hospital longer but she refused. Instead of making her go AGAINST MEDICAL ADVICE discharge was arranged to facilitate follow-up as well as appropriate medication. She should follow-up in 1 to 3 days with primary care provider and have a CBC and CMP done at that time. Physical Exam Narrative: General exam is no distress Neck is supple Cardiovascular regular rate and rhythm without murmur Lungs clear Abdomen is soft nontender positive bowel sounds Extremities no cyanosis clubbing or edema. Discharge Data Studies Completed and Pending Completed Studies During Hospitalization Category Date Time Status CT abdomen pelvis w con* [id number] Urgent Cat Scan 11/08/21 17:[address] head wo con* [id number] Routine Cat Scan 11/11/21 08:07 Completed XR chest 1V portable [id number] Routine Exams 11/08/21 22:26 Completed Pending at discharge Category Date Time Status Blood Culture Stat Lab 11/09/21 09:10 Results Methyl Alcohol, Quant Routine Lab 11/09/21 09:06 Received Radiology Impressions Abdomen/Pelvis CT 11/08/21 17:24 IMPRESSION: 1. Acute pancreatitis, as described above. Correlate with serum amylase and lipase levels. No drainable fluid collection. No necrosis or hemorrhage. 2. Nonocclusive portal vein thrombosis, as described above. 3. Mild nonspecific right-sided colitis. 4. Additional findings, as above. ADDENDUM: 11/08/211947 ADDENDUM: THIS REPORT CONTAINS FINDINGS THAT MAY BE CRITICAL TO PATIENT CARE. The findings were verbally communicated via telephone conference with FELI RAIN at 7:46 PM KNITTING MACHINE MECHANIC on 11/08/2021. The findings were acknowledged and understood. Chest X-Ray 11/08/21 22:26 IMPRESSION: No acute findings. Head CT 11/11/21 08:07 IMPRESSION: Negative head CT. Laboratory Results WBC 4.4 10^3/uL (4.0-10.0) 11/12/21 04:43 Corrected WBC Cancelled 11/08/21 17:14 RBC 3.08 10^6/uL (4.1-5.3) L 11/12/21 04:43 Hgb 11.0 g/dL (11.5-15.3) L 11/12/21 04:43 Hct 32.3 % (37.0-47.0) L 11/12/21 04:43 MCV 104.9 fl (81-99) H 11/12/21 04:43 MCH 35.7 pg (28.0-34.0) H 11/12/21 04:43 MCHC 34.1 g/dL (30.0-36.0) 11/12/21 04:43 RDW 11.8 % (12.1-15.1) L 11/12/21 04:43 Plt Count 64 10^3/cmm (130-400) L D 11/12/21 04:43 MPV 11.2 fL (7.4-10.4) H 11/12/21 04:43 Gran % Cancelled 11/08/21 17:14 Neut % (Auto) 74.0 % 11/12/21 04:43 Lymph % (Auto) 16.6 % 11/12/21 04:43 [place] % (Auto) 5.5 % 11/12/21 04:43 Eos % (Auto) 2.3 % 11/12/21 04:43 Baso % (Auto) 0.7 % 11/12/21 04:43 Neut # (Auto) 3.22 10^3/uL (1.8-7.7) 11/12/21 04:43 Lymph # (Auto) 0.7 10^3/uL (0.8-4.8) L 11/12/21 04:43 [place] # (Auto) 0.2 10^3/uL (0.2-0.9) 11/12/21 04:43 Eos # (Auto) 0.1 10^3/uL (0.0-0.8) 11/12/21 04:43 Baso # (Auto) 0.0 10^3/uL (0.0-0.1) 11/12/21 04:43 Absolute Gran (auto) Cancelled 11/08/21 17:14 Nucleated RBC % (auto) 0 % 11/12/21 04:43 Nucleated RBCs # 0.0 /100WBC 11/12/21 04:43 PT 13.50 SECONDS (12.1-14.9) 11/08/21 18:05 INR 1.00 (0.8-1.2) 11/08/21 18:05 Specimen Type Arterial 11/09/21 04:38 Sample Site Brachial, right 11/09/21 04:38 ABG pH 7.21 (7.35-7.45) L 11/09/21 04:38 ABG pCO2 23.3 mmHg (35-45) L 11/09/21 04:38 ABG pO2 100.0 mmHg (80.0-100.0) 11/09/21 04:38 ABG HCO3 9.3 mmol/L (22-26) L 11/09/21 04:38 ABG Base Excess -16.7 mmol/L (-2.0-2.0) L 11/09/21 04:38 Jonathan Test Pos 11/09/21 04:38 Hematocrit 39.1 % (37-47) 11/09/21 04:38 O2 Delivery Device Room air 11/09/21 04:38 FiO2 21.0 % 11/09/21 04:38 Performance Test Architect ID Mirza 11/09/21 04:38 Sodium 138 mmol/L (136-145) 11/12/21 04:43 Potassium 3.2 mmol/L (3.5-5.1) L 11/12/21 04:43 Chloride 100 mmol/L (98-107) 11/12/21 04:43 Carbon Dioxide 29 mmol/L (22-29) 11/12/21 04:43 Anion Gap 12.2 (5-19) 11/12/21 04:43 BUN 1 mg/dL (6-20) L 11/12/21 04:43 Creatinine 0.3 mg/dL (0.5-0.9) L 11/12/21 04:43 GFR Calculation 250.3 mL/min (90-130) H 11/12/21 04:43 Glucose 103 mg/dL (65-115) 11/12/21 04:43 Calculated Osmolality 282 mOsm/kg (285-295) L 11/12/21 04:43 Lactic Acid 1.3 mmol/L (0.5-2.2) 11/09/21 02:50 Lactate 3.7 mmol/L (0.5-2.2) H 11/08/21 17:41 Calcium 8.8 mg/dL (8.5-10.5) 11/12/21 04:43 Ionized Calcium [place] 1.1 mmol/L (1.1-1.4) 11/09/21 09:06 Magnesium 2.0 mg/dL (1.7-2.3) 11/12/21 04:43 Total Bilirubin 0.8 mg/dL (0.15-1.2) 11/12/21 04:43 AST 220 U/L (0-32) H 11/12/21 04:43 ALT 119 U/L (0-33) H 11/12/21 04:43 Alkaline Phosphatase 145 IU/L (35-105) H 11/12/21 04:43 Ammonia 37 umol/L (11-51) 11/10/21 05:26 Total Protein 6.3 g/dL (6.6-8.7) L 11/12/21 04:43 Albumin 3.6 g/dL (3.5-5.2) 11/12/21 04:43 Globulin 2.7 g/dL (1.3-4.6) 11/12/21 04:43 Triglycerides 168 mg/dL (0-150) H 11/09/21 02:50 Lipase 1720 U/L (13-60) H 11/08/21 18:05 HCG, Qual Negative (Negative) 11/08/21 18:05 Urine Color Yellow (Yellow) 11/08/21 19:15 Urine Appearance Clear (CLEAR) 11/08/21 19:15 Urine pH 5 (5-7) 11/08/21 19:15 Ur Specific [place] 1.025 (1.005-1.030) 11/08/21 19:15 Urine Protein 1+ (Negative) H 11/08/21 19:15 Urine Glucose (UA) Norm (Normal) 11/08/21 19:15 Urine Ketones 2+ (Negative) H 11/08/21 19:15 Urine Blood 3+ (Negative) H 11/08/21 19:15 Urine Nitrate Negative (Negative) 11/08/21 19:15 Urine Bilirubin Neg (Negative) 11/08/21 19:15 Urine Urobilinogen Norm mg/dL (Negative) 11/08/21 19:15 Ur Leukocyte Esterase Negative (Negative) 11/08/21 19:15 Urine RBC 10-15 /hpf (0-2) H 11/08/21 19:15 Urine WBC 0-4 /hpf (0-5) H 11/08/21 19:15 Ur Squamous Epith Cells 15-25 /hpf (0-5) H 11/08/21 19:15 Amorphous Sediment Not Reportable 11/08/21 19:15 Urine Bacteria 1+ /hpf (NONE) H 11/08/21 19:15 Urine Opiates Screen Positive ng/mL (Negative) H 11/08/21 19:15 Ur Barbiturates Screen Negative ng/mL (Negative) 11/08/21 19:15 Ur Phencyclidine Scrn Negative ng/mL (Negative) 11/08/21 19:15 Ur Amphetamines Screen Negative ng/mL (Negative) 11/08/21 19:15 U Benzodiazepines Scrn Negative ng/mL (Negative) 11/08/21 19:15 Urine Cocaine Screen Negative ng/mL (Negative) 11/08/21 19:15 U Marijuana (THC) Screen Negative ng/mL (Negative) 11/08/21 19:15 Ethyl Alcohol 198 mg/dL (0-10) H 11/08/21 18:05 Vitals Last Vital Signs Temp 97.6 F 11/12/21 08:00 Pulse 91 11/12/21 12:00 Resp 17 11/12/21 12:00 BP 135/99 11/12/21 12:00 Pulse Ox 94 11/12/21 12:00 Discharge Plan Discharge Patient Disposition: Home Condition: Stable Prescriptions: New Vitamin B-1 (mononitrate) 100 mg Tablet 100 mg PO DAILY Qty: 30 0RF Thera 400 mcg Tablet 1 tab PO DAILY Qty: 30 0RF Eliquis 5 mg Tablet 5 mg PO BID@0900,2100 Qty: 60 0RF Protonix 40 mg tablet,delayed release (DR/EC) 40 mg PO DAILY Qty: 30 0RF Discharge Orders: Discharge Order (Routine); Ordered 11/12/21 Ordered By: Surendra Fernando Other Ambulatory Orders: DME: [facility] (Order) Location: None Selected Ordered By: Surendra Fernando Referrals: Thanh Dubois DO [Physician] - 1-3 days (New patient appointment. CBC, CMP on follow-up This follow up appointment has been scheduled for the following date of November 19 time of 09:30 am ) Discharge Diet: Low Fat Discharge Activity: Increase activity as tolerated Patient Instructions: Alcohol Abuse, Thiamine (By mouth), Multivitamins, Adult Formula (By mouth), Pantoprazole (By mouth), Apixaban (By mouth) (Eliquis), Pancreatitis (DC), Low Fat Diet (DC), Abuse of Alcohol (DC), Fall Prevention (DC), Opioid Safety Activity Restrictions/Additional Instructions: Avoid all alcohol Consider outpatient rehabilitation Follow-up with primary care provider in 1 to 4 days, CBC and CMP on follow-up Return for any concerns Avoid falls If any significant bleeding return immediately. Note that you are on a blood thinner. Watch for any black or tarry stools, blood in stool, coffee-ground vomiting Discharge Attestations Time Spent in Discharge Care*: greater than 30 min Quality Metrics Clinical Quality Measures [ No reported AMI, CVA or VTE this stay] Coding Level of Care Code Acute Chg FW DC note Diagnoses Pancreatitis K85.90 Alcohol dependence F10.20 Portal vein thrombosis I81 Lactic acidosis E87.2 Thrombocytopenia D69.6
[2021-11-13 13:53] LABS: Alcohol, Methyl None Detected
== END 2021-11-12 15:00 | disposition home or self-care (01) | DRG 438 ==
LOC: ER 20:13 → ICU 22:28
PROVIDERS: Emergency Medicine; Admitting Provider Student in an Organized Health Care Education/Training Program; Emergency Provider Nurse Practitioner Family; Visit Provider Internal Medicine
DX: K85.20 Alcohol induced acute pancreatitis without necrosis or infection (principal); I81 Portal vein thrombosis; K75.1 Phlebitis of portal vein; F10.239 Alcohol dependence with withdrawal, unspecified; E87.2 Acidosis; F10.220 Alcohol dependence with intoxication, uncomplicated; Y90.6 Blood alcohol level of 120-199 mg/100 ml; F10.229 Alcohol dependence with intoxication, unspecified; E86.0 Dehydration; D69.6 Thrombocytopenia, unspecified; I80.9 Phlebitis and thrombophlebitis of unspecified site; E87.6 Hypokalemia
CPT/HCPCS: 36415; 36600; 70450; 71045; 74177; 80048; 80053; 80306; 80307; 80320; 81001; 82140; 82330; 82803; 83605; 83690; 83735; 84132; 84478; 84703; 85025; 85049; 85610; 87040; 96365; 96372; 96375; 96376; 97116; 97161; 99285; J1170; J1650; J1885; J2060; J2270; J2405; J2543; J3411; J3475; J3480; J3490; J7030; Q9967

== ENCOUNTER 2021-11-13 21:56 | Emergency (ER) | payer MEDICAID, SELFPAY ==
[2021-11-13 22:03] VITALS: BP 125/93; PULSE 104; RESP 18; TEMP 36.9; O2SAT 96; BMI 21.4
--- NOTE | 2021-11-13 22:15 | CTR_ITS ---
PROCEDURE INFORMATION: Exam: CT Head Without Contrast Exam date and time: 11/13/2021 10:15 PM Age: 36 years old Clinical indication: Patient HX: Witnessed seizure w/o HX of seizures. +etoh on board TECHNIQUE: Imaging protocol: Computed tomography of the head without contrast. Radiation optimization: All CT scans at this facility use at least one of these dose optimization techniques: automated exposure control; mA and/or kV adjustment per patient size (includes targeted exams where dose is matched to clinical indication); or iterative reconstruction. COMPARISON: No relevant prior studies available. RADIATION DOSE METRICS: Total DLP (mGy-cm): 821 FINDINGS: Brain: There are mild periventricular and subcortical lucencies consistent with chronic microvascular ischemic changes. The rader-white differentiation is maintained. No hemorrhage. No edema. Cerebral ventricles: No ventriculomegaly. Paranasal sinuses: Visualized sinuses are unremarkable. No fluid levels. Mastoid air cells: Visualized mastoid air cells are well aerated. Bones/joints: Unremarkable. No acute fracture. Soft tissues: Unremarkable. CT/CT head wo con* [id number] IMPRESSION: No acute intracranial abnormality. Chronic microvascular ischemic changes.
[2021-11-13 22:43] LABS: Basophils % 1.1 %; Eosinophils # 0.2 10^3/uL (0.0-0.8); Eosinophils % 4.1 %; Hematocrit 38.5 % (37.0-47.0); Hemoglobin 13.2 g/dL (11.5-15.3); Lymphocytes # 1.1 10^3/uL (0.8-4.8); Lymphocytes % 29.3 %; Mean Corpuscular HGB Conc 34.3 g/dL (30.0-36.0); Mean Corpuscular Hemoglobin 35.3 pg (28.0-34.0); Mean Corpuscular Volume 102.9 fl (81-99); Monocytes # 0.9 10^3/uL (0.2-0.9); Monocytes % 23.3 %; Neutrophils # 1.48 10^3/uL (1.8-7.7); Neutrophils % 40.6 %; Nucleated Red Blood Cells % 0 %; Platelet Count 146 10^3/cmm (130-400); Red Blood Count 3.74 10^6/uL (4.1-5.3); Red Cell Distribution Width 12.1 % (12.1-15.1); White Blood Count 3.7 10^3/uL (4.0-10.0)
[2021-11-13] MEDS: sodium chloride 0.9% 1,000 ML 999 ML IV (22:44)
[2021-11-13 22:47] VITALS: BP 119/88; PULSE 115; RESP 20; O2SAT 95
[2021-11-13 23:03] LABS: Alanine Aminotransferase 91 U/L (0-33); Albumin Level 3.9 g/dL (3.5-5.2); Alkaline Phosphatase 163 IU/L (35-105); Blood Urea Nitrogen 5 mg/dL (6-20); Carbon Dioxide 24 mmol/L (22-29); Chloride 99 mmol/L (98-107); Creatine Phosphokinase 113 U/L (26-192); Globulin 3.4 g/dL (1.3-4.6); Glomerular Filtration Rate 179.6 mL/min (90-130); Glucose 144 mg/dL (65-115); Magnesium 1.8 mg/dL (1.7-2.3); Osmolality Calculated 280 mOsm/kg (285-295); Sodium 135 mmol/L (136-145); Total Bilirubin 0.7 mg/dL (0.15-1.2); Total Protein 7.3 g/dL (6.6-8.7)
[2021-11-13 23:04] LABS: Alcohol Level < 10 mg/dL (0-10); Aspartate Amino Transferase 83 U/L (0-32)
[2021-11-13 23:05] LABS: Phosphorus 0.4 mg/dL (2.5-4.5)
--- NOTE | 2021-11-13 23:14 | PC.NURSE ---
Critical phosphorous 0.[address] José.
[2021-11-13 23:50] LABS: Add Urine Microscopic? NO; Charge for UA Resulting for Rev
--- NOTE | 2021-11-14 00:02 | PC.NURSE ---
assisted pt on bedpan then off
[2021-11-14 00:03] LABS: HCG Qualitative Urine. Negative (Negative)
[2021-11-14 00:04] LABS: Bilirubin Urine Neg (Negative); Blood Urine Neg (Negative); Glucose Urine UA Norm (Normal); Ketones Urine Negative (Negative); Leukocyte Esterase Urine Negative (Negative); Nitrate Urine Negative (Negative); Protein Urine Neg (Negative); Sulfosalicylic Acid Urine Negative (Negative); Urine Appearance Clear (CLEAR); Urine Color Yellow (Yellow); Urobilinogen Urine Norm (Negative); pH Urine 8 (5-7)
--- NOTE | 2021-11-14 00:15 | W.ED.SEIZURE ---
HPI - Seizure General: Chief Complaint: Seizure Stated Complaint: SEIZURE Time Seen by Provider: 11/13/21 22:00 History of Present Illness: HPI Narrative: 36-year-old female, with a recent admission for acute pancreatitis, and portal vein thrombosis. Pancreatitis was alcoholic pancreatitis. She was treated for alcohol withdrawal while here. She presents tonight after being discharged from the hospital yesterday. She had a seizure at home. Family states the seizure lasted around 1 to 1-1/2 minutes. First she became stiff, then began to shake. Eyes rolled back. She lost consciousness but did not quit breathing. She was confused on awakening. Family also notes she has been more confused today than she had been. She is also been tremulous for the past several days. MD complaint: seizure Onset (ago): minute(s) Description of Episode: loss of consciousness, tonic-clonic movement and post-event confusion Duration of episode: 60 -: second(s) Witnessed: Yes - by Bystander Trauma: No Seizure History: No Place: Home Possible Precipitating Event: alcohol withdrawal and stress Associated symptoms: Reports confusion, anorexia and weakness (Generalized); Deny chest pain, chills, cough, diaphoresis, fever(s), rash, short of breath or syncope Treatments prior to arrival: none Review of Systems Const: Denies: fever(s), chills or diaphoresis Eyes: Denies: change in vision ENMT: Denies: throat pain Card: Denies: chest pain or syncope Resp: Denies: dyspnea, productive cough or non-productive cough GI: Reports: abdominal pain and nausea; Denies: vomiting Neuro: Reports: headache(s), dizziness and confusion PFSH ED PFSH: Medical History Alcohol abuse Surgical History No pertinent past surgical history Family History Brother Liver failure Social History Smoking and tobacco status: current every day smoker Alcohol intake: current Alcohol intake frequency: 3 or more drinks per day Alcohol type: hard liquor Household members: significant other Housing: House 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, 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 Physical Exam Const: COMMON NORMALS: alert GENERAL APPEARANCE: cooperative; not lethargic NUTRITIONAL APPEARANCE: thin ORIENTATION/CONSCIOUSNESS: Yes oriented to person and Yes oriented to place; not lethargic HENMT: COMMON NORMALS: normocephalic, atraumatic and Normal external nose present HEAD & SCALP: normocephalic and atraumatic FACE & SINUS: normal facial exam NOSE: Normal external nose present MOUTH: tongue normal THROAT: posterior oropharynx normal Eye: COMMON NORMALS: Equal, round and reactive pupils present and EOMs intact bilaterally PUPIL: Yes Equal, round and reactive pupils present Chest: COMMONS NORMALS: normal inspection of the chest Resp: COMMON NORMALS: normal respiratory effort, No use of accessory muscles and clear to auscultation bilaterally AUSCULTATION: clear to auscultation bilaterally Cardio: COMMON NORMALS: regular rate and regular rhythm RATE: regular rate RHYTHM: regular rhythm GI: COMMON NORMALS: Normal to inspection, nondistended, normoactive bowel sounds present, Soft to palpation and non-tender PALPATION: Yes Soft to palpation Neuro: SENSORIUM/ORIENTATION: Yes alert, Yes oriented to person, Yes oriented to place and No lethargic CRANIAL NERVES: Yes CN normal except as noted COORDINATION/BALANCE: [id number] test normal SPEECH: speech normal SENSORY EXAM: Yes extremities (intact) COORDINATION: [id number] test normal Course Vital Signs: Vital signs: Vital Signs Temperature 98.5 F 11/13/21 22:03 Pulse Rate 75 11/14/21 02:43 Respiratory Rate 20 H 11/14/21 02:43 Blood Pressure 115/88 11/14/21 02:43 Pulse Oximetry 98 11/14/21 02:43 MDM - Seizure MDM Narrative Medical decision making narrative: 36-year-old alcoholic female discharged from the hospital yesterday. She had a seizure at home. Story sounds to be a real seizure. In the differential diagnosis would be alcoholic withdrawal seizure, but the patient's phosphorus is also quite low on serum testing. Other laboratory is essentially benign. She has mild leukopenia. She is awake and talking now. She is mildly confused. Head CT is negative for any acute change. She is loaded with a gram of Keppra. She is given potassium- phosphorus ivpb. No more seizure activity. She has had oral phosphorus as well as IV. She will be allowed home on oral Keppra to prevent future seizures for now. Outpatient follow-up per her discharge instructions. Would expect that she would be able to stop the Keppra in 1 to 2 weeks. She needs her phosphorus rechecked. Lab Data Result diagrams: 11/13/21 22:34 11/13/21 22:34 Labs: Radiology Impressions Head CT 11/13/21 22:15 IMPRESSION: No acute intracranial abnormality. Chronic microvascular ischemic changes. Laboratory Results WBC 3.7 10^3/uL (4.0-10.0) L 11/13/21 22:34 RBC 3.74 10^6/uL (4.1-5.3) L 11/13/21 22:34 Hgb 13.2 g/dL (11.5-15.3) 11/13/21:34 Hct 38.5 % (37.0-47.0) 11/13/21: MCV 102.9 fl (81-99) H 11/13/21:34 MCH 35.3 pg (28.0-34.0) H 11/13/21: MCHC 34.3 g/dL (30.0-36.0) 11/13/21:34 RDW 12.1 % (12.1-15.1) 11/13/21:34 Plt Count 146 10^3/cmm (130-400) 11/13/21:34 MPV 12.0 fL (7.4-10.4) H 11/13/21 22:34 Neut % (Auto) 40.6 % 11/13/21 22:34 Lymph % (Auto) 29.3 % 11/13/21:34 [place] % (Auto) 23.3 % 11/13/21:34 Eos % (Auto) 4.1 % 11/13/21:34 Baso % (Auto) 1.1 % 11/13/21:34 Neut # (Auto) 1.48 10^3/uL (1.8-7.7) L 11/13/21: Lymph # (Auto) 1.1 10^3/uL (0.8-4.8) 11/13/21 22:34 [place] # (Auto) 0.9 10^3/uL (0.2-0.9) 11/13/21 22:34 Eos # (Auto) 0.2 10^3/uL (0.0-0.8) 11/13/21 22:34 Baso # (Auto) 0.0 10^3/uL (0.0-0.1) 11/13/21 22:34 Nucleated RBC % (auto) 0 % 11/13/21 22:34 Nucleated RBCs # 0.0 /100WBC 11/13/21 22:34 Sodium 135 mmol/L (136-145) L 11/13/21 22:34 Potassium 4.0 mmol/L (3.5-5.1) 11/13/21 22:34 Chloride 99 mmol/L (98-107) 11/13/21 22:34 Carbon Dioxide 24 mmol/L (22-29) 11/13/21 22:34 Anion Gap 16.0 (5-19) 11/13/21 22:34 BUN 5 mg/dL (6-20) L 11/13/21 22:34 Creatinine 0.4 mg/dL (0.5-0.9) L 11/13/21 22:34 GFR Calculation 179.6 mL/min (90-130) H 11/13/21 22:34 Glucose 144 mg/dL (65-115) H 11/13/21 22:34 Calculated Osmolality 280 mOsm/kg (285-295) L 11/13/21 22:34 Calcium 9.0 mg/dL (8.5-10.5) 11/13/21 22:34 Phosphorus 0.4 mg/dL (2.5-4.5) L* 11/13/21 22:34 Magnesium 1.8 mg/dL (1.7-2.3) 11/13/21 22:34 Total Bilirubin 0.7 mg/dL (0.15-1.2) 11/13/21 22:34 AST 83 U/L (0-32) H 11/13/21 22:34 ALT 91 U/L (0-33) H 11/13/21 22:34 Alkaline Phosphatase 163 IU/L (35-105) H 11/13/21 22:34 Creatine Kinase 113 U/L (26-192) 11/13/21 22:34 Total Protein 7.3 g/dL (6.6-8.7) 11/13/21 22:34 Albumin 3.9 g/dL (3.5-5.2) 11/13/21 22:34 Globulin 3.4 g/dL (1.3-4.6) 11/13/21 22:34 HCG, Qual Negative (Negative) 11/13/21 23:45 Urine Color Yellow (Yellow) 11/13/21 23:45 Urine Appearance Clear (CLEAR) 11/13/21 23:45 Urine pH 8 (5-7) H 11/13/21 23:45 Ur Specific [place] 1.010 (1.005-1.030) 11/13/21 23:45 Urine Protein Neg (Negative) 11/13/21 23:45 Urine Glucose (UA) Norm (Normal) 11/13/21 23:45 Urine Ketones Negative (Negative) 11/13/21 23:45 Urine Blood Neg (Negative) 11/13/21 23:45 Urine Nitrate Negative (Negative) 11/13/21 23:45 Urine Bilirubin Neg (Negative) 11/13/21 23:45 Prot Sulfosalicylic Acd Negative (Negative) 11/13/21 23:45 Urine Urobilinogen Norm mg/dL (Negative) 11/13/21 23:45 Ur Leukocyte Esterase Negative (Negative) 11/13/21 23:45 Urine Opiates Screen Negative ng/mL (Negative) 11/13/21 23:45 Ur Barbiturates Screen Negative ng/mL (Negative) 11/13/21 23:45 Ur Phencyclidine Scrn Negative ng/mL (Negative) 11/13/21 23:45 Ur Amphetamines Screen Negative ng/mL (Negative) 11/13/21 23:45 U Benzodiazepines Scrn Positive ng/mL (Negative) H 11/13/21 23:45 Urine Cocaine Screen Negative ng/mL (Negative) 11/13/21 23:45 U Marijuana (THC) Screen Negative ng/mL (Negative) 11/13/21 23:45 Ethyl Alcohol < 10 mg/dL (0-10) 11/13/21 22:34 Discharge Plan Discharge Patient Disposition: Home Clinical Impression: Generalized seizure, Hypophosphatemia Condition: Stable Prescriptions: New Keppra 500 mg tablet 500 mg PO BID Qty: 30 0RF No Action hydrocodone-acetaminophen 5-325 mg Tablet 1 tab PO Q4H PRN (Reason: Moderate Pain) Qty: 5 0RF Thera 400 mcg Tablet 1 tab PO DAILY Qty: 30 0RF Discharge Orders: Discharge ED (Routine); Ordered 11/14/21 Ordered By: Demetrius José Discharge Diet: Advance as tolerated Discharge Activity: Limit activity as instructed Patient Instructions: New-Onset Seizure in Adults (ED), Hypophosphatemia (ED) Activity Restrictions/Additional Instructions: Medications as directed. You should be able to stop seizure medication after 2 weeks. Return for repeated episodes of seizure, worsening mental status, hallucinations, any other concerning symptoms. You need your phosphorus level rechecked next week. Follow-up with your doctor as per your discharge instructions from the hospital. Coding Level of Care Code ED Fittings Finisher for Chg Fwd Exam Comprehensive
[2021-11-14 00:17] LABS: Amphetamines Screen Urine Negative (Negative); Barbiturates Screen Urine Negative (Negative); Benzodiazepines Screen Urine Positive (Negative); Cocaine Screen Urine Negative (Negative); Opiate Screen Urine Negative (Negative); PCP Screen Urine Negative (Negative); THC Screen Urine Negative (Negative)
--- NOTE | 2021-11-14 00:34 | PC.NURSE ---
assisted pt on and off bedpan
[2021-11-14 00:35] VITALS: BP 132/64; PULSE 77; RESP 16; O2SAT 98
[2021-11-14 01:00] VITALS: BP 112/86; PULSE 100; O2SAT 100
[2021-11-14] MEDS: phosphorus 250 mg Tablet PO (01:07)
[2021-11-14] MEDS: ondansetron 2 mg/ML SDV 2 mL 4 MG IVP (01:09)
[2021-11-14] MEDS: morphine 4 mg/mL SDV 1 mL IVP (01:11)
[2021-11-14 02:15] VITALS: BP 107/73; PULSE 86; RESP 20; O2SAT 96
[2021-11-14 02:43] VITALS: BP 115/88; PULSE 75; RESP 20; O2SAT 98
== END 2021-11-14 04:06 | disposition home or self-care (01) ==
PROVIDERS: Emergency Provider Emergency Medicine
DX: G40.89 Other seizures (principal); E83.39 Other disorders of phosphorus metabolism; F17.210 Nicotine dependence, cigarettes, uncomplicated
CPT/HCPCS: 70450; 80053; 80306; 80307; 81003; 81025; 82550; 83735; 84100; 85025; 96365; 96366; 96375; 99284; J1953; J2270; J2405; J7030

== ENCOUNTER → 2021-11-19 10:47 | Outpatient (BNVA) | payer MEDICAID, SELFPAY | PROVIDERS: Visit Provider Family Medicine | DX: R56.9 Unspecified convulsions (principal); D69.6 Thrombocytopenia, unspecified; E83.39 Other disorders of phosphorus metabolism; F10.20 Alcohol dependence, uncomplicated; I81 Portal vein thrombosis; K85.20 Alcohol induced acute pancreatitis without necrosis or infection; M62.838 Other muscle spasm | CPT/HCPCS: 80053; 83735; 84100; 84443; 85025 ==

== ENCOUNTER 2022-09-01 09:07 | Inpatient (IN) | payer MEDICAID, SELFPAY ==
[2022-09-01] VITALS (16 sets, daily range): BP systolic 99–123; BP diastolic 61–81; PULSE 80–110; RESP 12–19; TEMP 36.6–37.3; O2SAT 92–100; BMI 21.4
--- NOTE | 2022-09-01 09:24 | W.ED.ABDPA2 ---
Documented by User: ROSALINDA Acosta 09/01/22 11:24 HPI - Abdominal Pain General: Chief Complaint: Abdominal Pain Stated Complaint: abd pain Time Seen by Provider: 09/01/22 09:11 History of Present Illness: Patient is a 36-year-old female comes to the ED with abdominal pain. She has a past medical history of alcohol abuse and pancreatitis. Abdominal pain started yesterday and its in the right upper and lower quadrant of her abdomen. Most of her pain is in the right upper quadrant of abdomen and she rates the pain currently a 10 out of 10. She endorses having nausea and vomiting. This pain is similar but more severe than her pancreatitis before. Associated Symptoms: Reports nausea and vomiting; Denies chills, constipation, diarrhea, dysuria, fever(s), hematochezia and hematuria Related Data: Date of Last Menstrual Period: 11/07/21 Review of Systems Const: Denies: fever(s), chills or fatigue Eyes: Denies: change in vision or eye discomfort ENMT: Denies: throat pain, odynophagia, nasal discharge or nasal congestion Card: Denies: chest pain, palpitations, edema, swelling of feet/ankles, dyspnea on exertion or orthopnea Resp: Denies: dyspnea, productive cough or non-productive cough GI: Reports: abdominal pain, nausea and vomiting; Denies: diarrhea, constipation or hematochezia : Denies: flank pain, dysuria or hematuria Musc: Denies: neck pain, back pain or extremity swelling Skin/Breast: Denies: rash or new lesions Neuro: Denies: headache(s), numbness in extremities or weakness in extremities PFSH ED PFSH: Medical History Alcohol abuse Surgical History No pertinent past surgical history Family History Brother Liver failure Social History Smoking and tobacco status: never smoked Alcohol intake: current Alcohol intake frequency: few times a month Alcohol type: hard liquor Household members: significant other Housing: House 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, 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 Reproductive History: Date of last menstrual period: 11/07/21 Physical Exam Const: COMMON NORMALS: patient oriented x3 and alert GENERAL APPEARANCE: cooperative HENMT: COMMON NORMALS: normocephalic HEAD & SCALP: normocephalic MOUTH: Normal oral and palatal mucosa present THROAT: posterior oropharynx normal and uvula midline Neck/C-Spine: COMMON NORMALS: supple GENERAL: Yes normal visual inspection Resp: COMMON NORMALS: normal respiratory effort, No retractions, No use of accessory muscles and clear to auscultation bilaterally AUSCULTATION: clear to auscultation bilaterally Cardio: COMMON NORMALS: regular rate, regular rhythm, S1 normal heart sound present, S2 normal heart sound present, No gallops present (Cardio), No clicks present (Cardio), No murmurs present (Cardio) and Peripheral pulses 2+ throughout RATE: regular rate RHYTHM: regular rhythm HEART SOUNDS: S1 normal heart sound present and S2 normal heart sound present PERIPHERAL PULSES: Peripheral pulses 2+ throughout GI: COMMON NORMALS: Normal to inspection, nondistended, normoactive bowel sounds present, Soft to palpation and no masses PALPATION: Yes Soft to palpation and Yes Tenderness to palpation present (GI) Details: RLQ and RUQ : COMMON NORMALS: Yes no CVA tenderness BLADDER/KIDNEY EXAM: Yes no CVA tenderness Back/Pelvis: COMMON NORMALS: no CVA tenderness Extremity: COMMON NORMALS: normal to inspection Neuro: COMMON NORMALS: patient oriented x3 SENSORIUM/ORIENTATION: Yes alert GAIT: Yes Normal gait present Skin: GENERAL SKIN EXAM: dry skin Course Vital Signs: Vital signs: Vital Signs Temperature 97.9 F 09/01/22 09:10 Pulse Rate 89 09/01/22 10:35 Respiratory Rate 12 09/01/22 10:35 Blood Pressure 110/79 09/01/22 10:35 Pulse Oximetry 97 09/01/22 10:35 Oxygen Delivery Me thod 09/01/22 10:35 MDM - Abdominal Pain Medical Decision Making Patient is a 36-year-old female comes to the ED with abdominal pain. She has a history of alcohol abuse and pancreatitis. Vitals are stable. Exam shows palpable right upper quadrant and right lower quadrant abdominal tenderness. White blood cell count of 11 and lipase of 892. CT shows acute pancreatitis. I talked with Dr. Pretty about patient case and he will contact hospitalist and have patient admitted. 36-year-old female with long history of alcohol abuse and previous pancreatitis. Earlier this year was admitted and had a portal vein thrombosis started on Eliquis. She is mildly anemic compared to earlier in the year CT today shows pancreatitis consistent with laboratory abnormalities on today's blood work. Her portal vein is reported as patent on her CT. She reports a history of previously having had withdrawal seizures. She been discharged home was discharged home on an Ativan taper and has a seizure shortly after leaving the hospital with her previous admission. Discussed with Dr. Valladares orders written including withdrawal protocols. Lab Data I reviewed the patient's lab results. 09/01/22 09:25 09/01/22 09:25 Labs/Radiology: Radiology Impressions Abdomen/Pelvis CT 09/01/22 09:36 IMPRESSION: 1. Acute pancreatitis. 2. Since the previous examination numerous peripancreatic fluid collections have developed measuring up to 6 cm in diameter which are consistent with multiple pancreatic pseudocysts. 3. Small ascites. Laboratory Results WBC 11.1 10^3/uL (4.0-10.0) H 09/01/22 09:25 RBC 3.28 10^6/uL (4.1-5.3) L 09/01/22 09:25 Hgb 9.8 g/dL (11.5-15.3) L 09/01/22 09:25 Hct 32.4 % (37.0-47.0) L 09/01/22 09:25 MCV 98.8 fl (81-99) 09/01/22 09:25 MCH 29.9 pg (28.0-34.0) 09/01/22 09:25 MCHC 30.2 g/dL (30.0-36.0) 09/01/22 09:25 RDW 15.9 % (12.1-15.1) H 09/01/22 09:25 Plt Count 346 10^3/cmm (130-400) 09/01/22 09:25 MPV 10.4 fL (7.4-10.4) 09/01/22 09:25 Neut % (Auto) 77.0 % 09/01/22 09:25 Lymph % (Auto) 10.0 % 09/01/22 09:25 Teller % (Auto) 6.8 % 09/01/22 09:25 Eos % (Auto) 5.2 % 09/01/22 09:25 Baso % (Auto) 0.5 % 09/01/22 09:25 Neut # (Auto) 8.56 10^3/uL (1.8-7.7) H 09/01/22 09:25 Lymph # (Auto) 1.1 10^3/uL (0.8-4.8) 09/01/22 09:25 Teller # (Auto) 0.8 10^3/uL (0.2-0.9) 09/01/22 09:25 Eos # (Auto) 0.6 10^3/uL (0.0-0.8) 09/01/22 09:25 Baso # (Auto) 0.1 10^3/uL (0.0-0.1) 09/01/22 09:25 Nucleated RBC % (auto) 0 % 09/01/22 09:25 Nucleated RBCs # 0.0 /100WBC 09/01/22 09:25 Sodium 132 mmol/L (136-145) L 09/01/22 09:25 Potassium 3.8 mmol/L (3.5-5.1) 09/01/22 09:25 Chloride 99 mmol/L (98-107) 09/01/22 09:25 Carbon Dioxide 23 mmol/L (22-29) 09/01/22 09:25 Anion Gap 13.8 (5-19) 09/01/22 09:25 BUN 9 mg/dL (6-20) 09/01/22 09:25 Creatinine 0.4 mg/dL (0.5-0.9) L 09/01/22 09:25 GFR Calculation 179.6 mL/min (90-130) H 09/01/22 09:25 Glucose 96 mg/dL (65-115) 09/01/22 09:25 Calculated Osmolality 273 mOsm/kg (285-295) L 09/01/22 09:25 Calcium 8.6 mg/dL (8.5-10.5) 09/01/22 09:25 Total Bilirubin 0.3 mg/dL (0.15-1.2) 09/01/22 09:25 AST 14 U/L (0-32) 09/01/22 09:25 ALT 6 U/L (0-33) 09/01/22 09:25 Alkaline Phosphatase 100 U/L (35-105) 09/01/22 09:25 Total Protein 7.1 g/dL (6.6-8.7) 09/01/22 09:25 Albumin 3.6 g/dL (3.5-5.2) 09/01/22 09:25 Globulin 3.5 g/dL (1.3-4.6) 09/01/22 09:25 Lipase 892 U/L (13-60) H 09/01/22 09:25 HCG, Qual Negative (Negative) 09/01/22 09:25 Urine Color Yellow (Yellow) 09/01/22 10:15 Urine Appearance Clear (CLEAR) 09/01/22 10:15 Urine pH 5 (5-7) 09/01/22 10:15 Ur Specific [place] 1.015 (1.005-1.030) 09/01/22 10:15 Urine Protein Neg (Negative) 09/01/22 10:15 Urine Glucose (UA) Norm (Normal) 09/01/22 10:15 Urine Ketones 1+ (Negative) H 09/01/22 10:15 Urine Blood Neg (Negative) 09/01/22 10:15 Urine Nitrate Negative (Negative) 09/01/22 10:15 Urine Bilirubin Neg (Negative) 09/01/22 10:15 Urine Urobilinogen Norm mg/dL (Negative) 09/01/22 10:15 Ur Leukocyte Esterase Negative (Negative) 09/01/22 10:15 Discharge Plan Discharge Patient Disposition: Admitted As Inpatient Clinical Impression: Pancreatitis Condition: Stable Prescriptions: No Action thiamine mononitrate (vit B1) [Vitamin B-1 (mononitrate)] 100 mg Tablet 100 mg PO DAILY Qty: 30 0RF multivitamin with folic acid [Thera] 400 mcg Tablet 1 tab PO DAILY Qty: 30 0RF Sign Out Sign Out Data: Patient Sign Out occurred on 09/01/22 at 10:46. Patient's care was discussed, and care was transferred from to Mark Pretty DO. Coding Level of Care Code ED Recoating Machine Operator for [place] Fwd Exam Comprehensive Documented by User: Mark Pretty DO 09/01/22 10:52 HPI - Abdominal Pain General: Chief Complaint: Abdominal Pain Stated Complaint: abd pain Time Seen by Provider: 09/01/22 09:11 [facility] ED PFSH: Medical History Alcohol abuse Surgical History No pertinent past surgical history Family History Brother Liver failure Social History Smoking and tobacco status: never smoked Alcohol intake: current Alcohol intake frequency: few times a month Alcohol type: hard liquor Household members: significant other Housing: House 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 She has a history of alcohol abuse and pancreatitis. Vitals are stable. Exam shows palpable right upper quadrant and right lower quadrant abdominal tenderness. White blood cell count of 11 and lipase of 892. CT shows acute pancreatitis. I talked with Dr. Pretty about patient case and he will contact hospitalist and have patient admitted. 26-year-old female with long history of alcohol abuse and previous pancreatitis. Earlier this year was admitted and had a portal vein thrombosis started on Eliquis. She is mildly anemic compared to earlier in the year CT today shows pancreatitis consistent with laboratory abnormalities on today's blood work. Her portal vein is reported as patent on her CT. She reports a history of previously having had withdrawal seizures. She been discharged home was discharged home on an Ativan taper and has a seizure shortly after leaving the hospital with her previous admission. Discussed with Dr. Valladares orders written including withdrawal protocols. Lab Data 09/01/22 09:25 09/01/22 09:25 Labs/Radiology: Radiology Impressions Abdomen/Pelvis CT 12/28/22 09:36 IMPRESSION: 1. Acute pancreatitis. 2. Since the previous examination numerous peripancreatic fluid collections have developed measuring up to 6 cm in diameter which are consistent with multiple pancreatic pseudocysts. 3. Small ascites. Laboratory Results WBC 11.1 10^3/uL (4.0-10.0) H 09/01/22 09:25 RBC 3.28 10^6/uL (4.1-5.3) L 09/01/22 09:25 Hgb 9.8 g/dL (11.5-15.3) L 09/01/22 09:25 Hct 32.4 % (37.0-47.0) L 09/01/22 09:25 MCV 98.8 fl (81-99) 09/01/22 09:25 MCH 29.9 pg (28.0-34.0) 09/01/22 09:25 MCHC 30.2 g/dL (30.0-36.0) 09/01/22 09:25 RDW 15.9 % (12.1-15.1) H 09/01/22 09:25 Plt Count 346 10^3/cmm (130-400) 09/01/22 09:25 MPV 10.4 fL (7.4-10.4) 09/01/22 09:25 Neut % (Auto) 77.0 % 09/01/22 09:25 Lymph % (Auto) 10.0 % 09/01/22 09:25 Teller % (Auto) 6.8 % 09/01/22 09:25 Eos % (Auto) 5.2 % 09/01/22 09:25 Baso % (Auto) 0.5 % 09/01/22 09:25 Neut # (Auto) 8.56 10^3/uL (1.8-7.7) H 09/01/22 09:25 Lymph # (Auto) 1.1 10^3/uL (0.8-4.8) 09/01/22 09:25 Teller # (Auto) 0.8 10^3/uL (0.2-0.9) 09/01/22 09:25 Eos # (Auto) 0.6 10^3/uL (0.0-0.8) 09/01/22 09:25 Baso # (Auto) 0.1 10^3/uL (0.0-0.1) 09/01/22 09:25 Nucleated RBC % (auto) 0 % 09/01/22 09:25 Nucleated RBCs # 0.0 /100WBC 09/01/22 09:25 Sodium 132 mmol/L (136-145) L 09/01/22 09:25 Potassium 3.8 mmol/L (3.5-5.1) 09/01/22 09:25 Chloride 99 mmol/L (98-107) 09/01/22 09:25 Carbon Dioxide 23 mmol/L (22-29) 09/01/22 09:25 Anion Gap 13.8 (5-19) 09/01/22 09:25 BUN 9 mg/dL (6-20) 09/01/22 09:25 Creatinine 0.4 mg/dL (0.5-0.9) L 09/01/22 09:25 GFR Calculation 179.6 mL/min (90-130) H 09/01/22 09:25 Glucose 96 mg/dL (65-115) 09/01/22 09:25 Calculated Osmolality 273 mOsm/kg (285-295) L 09/01/22 09:25 Calcium 8.6 mg/dL (8.5-10.5) 09/01/22 09:25 Total Bilirubin 0.3 mg/dL (0.15-1.2) 09/01/22 09:25 AST 14 U/L (0-32) 09/01/22 09:25 ALT 6 U/L (0-33) 09/01/22 09:25 Alkaline Phosphatase 100 U/L (35-105) 09/01/22 09:25 Total Protein 7.1 g/dL (6.6-8.7) 09/01/22 09:25 Albumin 3.6 g/dL (3.5-5.2) 09/01/22 09:25 Globulin 3.5 g/dL (1.3-4.6) 09/01/22 09:25 Lipase 892 U/L (13-60) H 09/01/22 09:25 HCG, Qual Negative (Negative) 09/01/22 09:25 Urine Color Yellow (Yellow) 09/01/22 10:15 Urine Appearance Clear (CLEAR) 09/01/22 10:15 Urine pH 5 (5-7) 09/01/22 10:15 Ur Specific [place] 1.015 (1.005-1.030) 09/01/22 10:15 Urine Protein Neg (Negative) 09/01/22 10:15 Urine Glucose (UA) Norm (Normal) 09/01/22 10:15 Urine Ketones 1+ (Negative) H 09/01/22 10:15 Urine Blood Neg (Negative) 09/01/22 10:15 Urine Nitrate Negative (Negative) 09/01/22 10:15 Urine Bilirubin Neg (Negative) 09/01/22 10:15 Urine Urobilinogen Norm mg/dL (Negative) 09/01/22 10:15 Ur Leukocyte Esterase Negative (Negative) 09/01/22 10:15 Discharge Plan Discharge Patient Disposition: Admitted As Inpatient Clinical Impression: Pancreatitis Condition: Stable Prescriptions: No Action thiamine mononitrate (vit B1) [Vitamin B-1 (mononitrate)] 100 mg Tablet 100 mg PO DAILY Qty: 30 0RF multivitamin with folic acid [Thera] 400 mcg Tablet 1 tab PO DAILY Qty: 30 0RF Sign Out Sign Out Data: Patient Sign Out occurred on 09/01/22 at 10:46. Patient's care was discussed, and care was transferred from to Mark Pretty DO. Coding Level of Care Code ED Recoating Machine Operator for Kamron Fwstephanie Exam Comprehensive
[2022-09-01 09:35] LABS: Basophils # 0.1 10^3/uL (0.0-0.1); Basophils % 0.5 %; Eosinophils # 0.6 10^3/uL (0.0-0.8); Eosinophils % 5.2 %; Hematocrit 32.4 % (37.0-47.0); Hemoglobin 9.8 g/dL (11.5-15.3); Lymphocytes # 1.1 10^3/uL (0.8-4.8); Mean Corpuscular HGB Conc 30.2 g/dL (30.0-36.0); Mean Corpuscular Hemoglobin 29.9 pg (28.0-34.0); Mean Corpuscular Volume 98.8 fl (81-99); Mean Platelet Volume 10.4 fL (7.4-10.4); Monocytes # 0.8 10^3/uL (0.2-0.9); Monocytes % 6.8 %; Neutrophils # 8.56 10^3/uL (1.8-7.7); Nucleated Red Blood Cells % 0 %; Platelet Count 346 10^3/cmm (130-400); Red Blood Count 3.28 10^6/uL (4.1-5.3); Red Cell Distribution Width 15.9 % (12.1-15.1); White Blood Count 11.1 10^3/uL (4.0-10.0)
--- NOTE | 2022-09-01 09:36 | CTR_ITS ---
PROCEDURE INFORMATION: Exam: CT Abdomen And Pelvis With Contrast Exam date and time: 09/01/2022 9:56 AM Age: 36 years old Clinical indication: Abdominal pain; Localized; Right; Additional info: Ruq abdominal pain, n/v, history of pancreatitis TECHNIQUE: Imaging protocol: Computed tomography of the abdomen and pelvis with contrast. Radiation optimization: All CT scans at this facility use at least one of these dose optimization techniques: automated exposure control; mA and/or kV adjustment per patient size (includes targeted exams where dose is matched to clinical indication); or iterative reconstruction. Contrast material: OMNI 350; Contrast volume: 100 ml; Contrast route: INTRAVENOUS (IV); COMPARISON: CT abdomen pelvis w con* [id number] 11/08/2021 6:43 PM RADIATION DOSE METRICS: Total DLP (mGy-cm): 325.88 FINDINGS: Lungs: Subsegmental atelectasis in the lung bases. Liver: Normal. No mass. Gallbladder and bile ducts: Normal. No calcified stones. No ductal dilation. Pancreas: There is peripancreatic infiltration and fluid consistent with acute pancreatitis. There are multiple loculated peripancreatic retroperitoneal fluid collections that are consistent with multiple pseudocysts. They measure up to 6.0 cm in diameter. The pancreatic duct is dilated to a diameter of 6 mm. Spleen: Normal. No splenomegaly. Adrenal glands: Normal. No mass. Kidneys and ureters: Normal. No hydronephrosis. Stomach and bowel: Unremarkable. No obstruction. No mucosal thickening. Appendix: No evidence of appendicitis. Intraperitoneal space: Small ascites in the abdomen and pelvis. Vasculature: The portal vein is patent. Lymph nodes: Unremarkable. No enlarged lymph nodes. Urinary bladder: Unremarkable as visualized. Reproductive: There are multiple bilateral simple ovarian cysts measuring up to 3.2 cm in diameter. Uterus is unremarkable. Bones/joints: Unremarkable. No acute fracture. Soft tissues: Unremarkable. CT/CT abdomen pelvis w con* [id number] IMPRESSION: 1. Acute pancreatitis. 2. Since the previous examination numerous peripancreatic fluid collections have developed measuring up to 6 cm in diameter which are consistent with multiple pancreatic pseudocysts. 3. Small ascites.
[2022-09-01] MEDS: sodium chloride 0.9% 1,000 ML 999 ML IV (09:42)
[2022-09-01] MEDS: ondansetron 2 mg/ML SDV 2 mL 4 MG IVP (09:44)
[2022-09-01] MEDS: morphine 4 mg/mL SDV 1 mL IVP (09:45)
[2022-09-01 09:47] LABS: HCG, Serum Qual Negative (Negative)
[2022-09-01 09:52] LABS: Alanine Aminotransferase 6 U/L (0-33); Albumin Level 3.6 g/dL (3.5-5.2); Alkaline Phosphatase 100 U/L (35-105); Anion Gap 13.8 (5-19); Aspartate Amino Transferase 14 U/L (0-32); Blood Urea Nitrogen 9 mg/dL (6-20); Calcium 8.6 mg/dL (8.5-10.5); Carbon Dioxide 23 mmol/L (22-29); Chloride 99 mmol/L (98-107); Globulin 3.5 g/dL (1.3-4.6); Glomerular Filtration Rate 179.6 mL/min (90-130); Glucose 96 mg/dL (65-115); Osmolality Calculated 273 mOsm/kg (285-295); Potassium 3.8 mmol/L (3.5-5.1); Sodium 132 mmol/L (136-145); Total Bilirubin 0.3 mg/dL (0.15-1.2); Total Protein 7.1 g/dL (6.6-8.7)
[2022-09-01 09:59] LABS: Lipase 892 U/L (13-60)
[2022-09-01] MEDS: iohexol 350 mg/mL 500 mL Btl (per mL) IV (10:00)
[2022-09-01 10:21] LABS: Add Urine Microscopic? NO; Charge for UA Resulting for Rev
[2022-09-01] MEDS: HYDROmorphone 1 mg/mL INJ 1 mL IVP (10:21)
[2022-09-01 10:22] LABS: Specific Gravity, Urine 1.015 (1.005-1.030); Urine Appearance Clear (CLEAR); Urine Color Yellow (Yellow); pH Urine 5 (5-7)
[2022-09-01 10:23] LABS: Bilirubin Urine Neg (Negative); Blood Urine Neg (Negative); Glucose Urine UA Norm (Normal); Ketones Urine 1+ (Negative); Leukocyte Esterase Urine Negative (Negative); Nitrate Urine Negative (Negative); Protein Urine Neg (Negative); Urobilinogen Urine Norm (Negative)
--- NOTE | 2022-09-01 11:25 | PC.PHAR ---
ALEXX AND NICHOLE REMOVED FROM MED LIST DUE TO PT NO LONGER TAKING AND PER
[2022-09-01] MEDS: multivitamin therapeutic Tablet 1 TAB PO (13:42)
[2022-09-01] MEDS: thiamine 100 mg Tablet PO (13:42)
[2022-09-01] MEDS: folic acid 1 mg Tablet PO (13:42)
[2022-09-01] MEDS: morphine 4 mg/mL SDV 1 mL 1 MG IVP ×3 (14:02→22:34)
[2022-09-01] MEDS: LORazepam 2 mg/mL INJ 1 mL IVP (14:03)
[2022-09-01] MEDS: D5-NS 0.45% + KCL 20 mEq 20 MEQ/1,000 ML BAG 100 MEQ IV (14:41)
--- NOTE | 2022-09-01 15:25 | PM.HP ---
Providers/Chief Complaint Chief Complaint: abd pain History of Present Illness Raquel Govea is a 36 year old female with past medical history of pancreatitis, alcohol abuse with 1 pint of vodka daily, portal vein thrombosis, alcohol withdrawal seizures presented to the ER because of abdominal pain ongoing for last 2 days worsening since last night along with nausea and one episode of vomiting. Vomitus contained food particles and not associated with hematemesis. Patient drinks 1 pint of vodka daily with last consumption of alcohol last night. Does not report any other drug abuse. For a possible history of portal vein thrombosis supposed to be on Eliquis as an outpatient which she stopped taking many months ago when she ran out of medications. She also gives history of alcohol withdrawal seizures with last seizure 1 month ago. Review of Systems General: Reports: 10 or more systems reviewed and unremarkable except in HPI and below Const: Denies: fever(s), chills, body aches, change in appetite, change in weight, malaise, night sweats, diaphoresis, change in sleep pattern, daytime sleepiness or snoring Eyes: Denies: change in vision, blurry vision, photophobia, eye discomfort or eye discharge ENMT: Denies: throat pain, enlarged tonsils, hoarseness, mouth pain, oral sores, dry mouth, tinnitus, nasal congestion or post nasal drip Card: Denies: chest pain, palpitations, irregular heart rhythm, edema, swelling of feet/ankles, lightheadedness, syncope, pre-syncope, dyspnea on exertion, orthopnea, leg pain with exertion or acrocyanosis Resp: Denies: dyspnea, productive cough, non-productive cough, wheezing, stridor, pain on inspiration, change in phlegm color, hemoptysis or chest congestion GI: Denies: abdominal pain, nausea, vomiting, hematemesis, coffee ground emesis, dysphagia, heartburn, diarrhea, constipation, bloating, GI cramping, change in bowel habits, pain on defecation, hematochezia or melena : Denies: flank pain, dysuria, urinary frequency, urinary urgency, urinary hesitancy, nocturia or hematuria Musc: Denies: neck pain, back pain, extremity pain, joint pain, joint swelling, joint redness, joint stiffness or limited range of motion Neuro: Denies: headache(s), numbness in extremities, weakness in extremities, sensory changes, lack of coordination, difficulty walking, frequent falls, dizziness, vertigo, confusion, Slurred speech present, difficulty communicating thoughts or seizure-like activity Psych: Denies: anxiety, depression, mood swings, panic attacks, hopelessness or irritability Endo: Denies: polyuria, polydipsia, tired all the time, cold intolerance, excessive sweating, flushing or heat intolerance Tho/Lymph: Denies: easy bruising or easy bleeding All/Imm: Denies: tongue swelling, facial swelling or acute wheezing Medications/Allergies Home Medications Medication Instructions Recorded Confirmed Last Taken Type multivitamin with folic acid 400 1 tab PO DAILY #30 tabs 11/12/21 09/01/22 Unknown Rx mcg tablet (Thera) thiamine mononitrate (vit B1) 100 100 mg PO DAILY #30 tabs 11/12/21 09/01/22 Unknown Rx mg tablet (Vitamin B-1 (mononitrate)) Allergies Allergy/AdvReac Type Severity Reaction Status Date / Time No Known Allergies Allergy Verified 09/01/22 11:22 PFSH Acute PFSH: Medical History (Updated 09/01/22 @ 15:28 by Sourav Valladares MD) Acute alcoholic pancreatitis Alcohol abuse Alcohol withdrawal seizure Portal vein thrombosis Thrombocytopenia Surgical History No pertinent past surgical history Family History Brother Liver failure Social History Smoking and tobacco status: never smoked Alcohol intake: current Alcohol intake frequency: few times a month Alcohol type: hard liquor Household members: significant other Housing: House 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, [employer] Female Reproductive History: Date of last menstrual period: 11/07/21 Vitals/I&O/Wt Last Vital Signs Temp 97.9 F 09/01/22 09:10 Pulse 83 09/01/22 14:43 Resp 14 09/01/22 14:43 BP 108/71 09/01/22 14:43 Pulse Ox 92 09/01/22 14:43 O2 Del Method 09/01/22 14:43 09/01/22 09/01/22 09/01/22 06:59 14:59 22:59 Intake Total 1000 / 1000 Balance 1000 / 1000 Weight last 48 hrs Weight 53.07 kg Physical Exam Narrative: General: No acute distress, AO x3 HEENT: PERRLA, pupils bilaterally equal and reactive Chest: Normal vesicular breath sounds, no added sounds, equal good air entry bilaterally CVS: S1-S2 regular, no murmurs, no tachycardia, no gallops, no rubs Abdomen: Soft, tender epigastric area, no organomegaly, bowel sounds present Neuro: No focal deficits, no facial deformity, AO x3, power 5/5 in all limbs Data 09/01/22 09:25 09/01/22 09:25 Other Labs: Radiology Impressions Abdomen/Pelvis CT 09/01/22 09:36 IMPRESSION: 1. Acute pancreatitis. 2. Since the previous examination numerous peripancreatic fluid collections have developed measuring up to 6 cm in diameter which are consistent with multiple pancreatic pseudocysts. 3. Small ascites. Laboratory Results WBC 11.1 10^3/uL (4.0-10.0) H 09/01/22 09:25 RBC 3.28 10^6/uL (4.1-5.3) L 09/01/22 09:25 Hgb 9.8 g/dL (11.5-15.3) L 09/01/22 09:25 Hct 32.4 % (37.0-47.0) L 09/01/22 09:25 MCV 98.8 fl (81-99) 09/01/22 09:25 MCH 29.9 pg (28.0-34.0) 09/01/22 09:25 MCHC 30.2 g/dL (30.0-36.0) 09/01/22 09:25 RDW 15.9 % (12.1-15.1) H 09/01/22 09:25 Plt Count 346 10^3/cmm (130-400) 09/01/22 09:25 MPV 10.4 fL (7.4-10.4) 09/01/22 09:25 Neut % (Auto) 77.0 % 09/01/22 09:25 Lymph % (Auto) 10.0 % 09/01/22 09:25 [place] % (Auto) 6.8 % 09/01/22 09:25 Eos % (Auto) 5.2 % 09/01/22 09:25 Baso % (Auto) 0.5 % 09/01/22 09:25 Neut # (Auto) 8.56 10^3/uL (1.8-7.7) H 09/01/22 09:25 Lymph # (Auto) 1.1 10^3/uL (0.8-4.8) 09/01/22 09:25 [place] # (Auto) 0.8 10^3/uL (0.2-0.9) 09/01/22 09:25 Eos # (Auto) 0.6 10^3/uL (0.0-0.8) 09/01/22 09:25 Baso # (Auto) 0.1 10^3/uL (0.0-0.1) 09/01/22 09:25 Nucleated RBC % (auto) 0 % 09/01/22 09:25 Nucleated RBCs # 0.0 /100WBC 09/01/22 09:25 Sodium 132 mmol/L (136-145) L 09/01/22 09:25 Potassium 3.8 mmol/L (3.5-5.1) 09/01/22 09:25 Chloride 99 mmol/L (98-107) 09/01/22 09:25 Carbon Dioxide 23 mmol/L (22-29) 09/01/22 09:25 Anion Gap 13.8 (5-19) 09/01/22 09:25 BUN 9 mg/dL (6-20) 09/01/22 09:25 Creatinine 0.4 mg/dL (0.5-0.9) L 09/01/22 09:25 GFR Calculation 179.6 mL/min (90-130) H 09/01/22 09:25 Glucose 96 mg/dL (65-115) 09/01/22 09:25 Calculated Osmolality 273 mOsm/kg (285-295) L 09/01/22 09:25 Calcium 8.6 mg/dL (8.5-10.5) 09/01/22 09:25 Total Bilirubin 0.3 mg/dL (0.15-1.2) 09/01/22 09:25 AST 14 U/L (0-32) 09/01/22 09:25 ALT 6 U/L (0-33) 09/01/22 09:25 Alkaline Phosphatase 100 U/L (35-105) 09/01/22 09:25 Total Protein 7.1 g/dL (6.6-8.7) 09/01/22 09:25 Albumin 3.6 g/dL (3.5-5.2) 09/01/22 09:25 Globulin 3.5 g/dL (1.3-4.6) 09/01/22 09:25 Lipase 892 U/L (13-60) H 09/01/22 09:25 HCG, Qual Negative (Negative) 09/01/22 09:25 Urine Color Yellow (Yellow) 09/01/22 10:15 Urine Appearance Clear (CLEAR) 09/01/22 10:15 Urine pH 5 (5-7) 09/01/22 10:15 Ur Specific [place] 1.015 (1.005-1.030) 09/01/22 10:15 Urine Protein Neg (Negative) 09/01/22 10:15 Urine Glucose (UA) Norm (Normal) 09/01/22 10:15 Urine Ketones 1+ (Negative) H 09/01/22 10:15 Urine Blood Neg (Negative) 09/01/22 10:15 Urine Nitrate Negative (Negative) 09/01/22 10:15 Urine Bilirubin Neg (Negative) 09/01/22 10:15 Urine Urobilinogen Norm mg/dL (Negative) 09/01/22 10:15 Ur Leukocyte Esterase Negative (Negative) 09/01/22 10:15 A&P Assessment and plan (1) Pancreatitis: Seen on CT scan. Lipase elevated. Most likely alcoholic pancreatitis. No gallstones. NPO. We will advance diet gradually within next 24 hours. IV fluids with D5 NS at 75 cc/h. Zofran as needed Protonix twice daily. Morphine 1 mg IV every 4 hours as needed for pain. Qualifiers: Acute pancreatitis complication: unspecified Chronicity: acute Pancreatitis type: alcohol induced Qualified Code(s): K85.20 - Alcohol induced acute pancreatitis without necrosis or infection (2) Alcohol dependence: [facility] protocol. Watch for alcohol withdrawal seizures. Fall precautions, aspiration precaution (3) Portal vein thrombosis: Supposed to be on Eliquis 5 mg twice daily. Not on treatment as she ran out of medications. CT abdomen pelvis done today shows patent portal vein. We will hold off on any further treatment. Plan Full code NPO. Protonix for PUD prophylaxis Heparin for DVT prophylaxis Attestations Medical Necessity Statement*: Admission for more than 2 midnights for management of alcohol-related pancreatitis as patient is unable to maintain oral hydration. 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
[2022-09-01 15:58] LABS: Amphetamines Screen Urine Negative (Negative); Barbiturates Screen Urine Negative (Negative); Benzodiazepines Screen Urine Positive (Negative); Cocaine Screen Urine Negative (Negative); Opiate Screen Urine Positive (Negative); PCP Screen Urine Negative (Negative); THC Screen Urine Negative (Negative)
[2022-09-01 16:02] LABS: Thyroid Stimulating Hormone 1.45 uIU/mL (0.27-4.20)
[2022-09-01] MEDS: folic acid 1 MG, multivitamin inj 10 ML, thiamine 100 MG in sodium chloride 0.9% 1,000 ML 252.8 MG IV (16:09)
[2022-09-01 16:10] LABS: Procalcitonin 0.05 ng/mL (0-0.5); Vitamin B12 501 pg/mL (232-1245)
[2022-09-01] MEDS: pantoprazole 40 mg SDV IVP (16:51)
[2022-09-01] MEDS: heparin 5,000 unit/mL INJ 1 mL 5000 UNIT SUBCUT (16:51)
[2022-09-01 17:16] LABS: Iron 25 ug/dL (37-145); Percent Saturation 6.1 % (20-50); Total Iron Binding Capacity 405 mcg/dl; Unsaturated Iron Binding 380 ug/dL (112-347)
[2022-09-01 18:20] LABS: Folate Level 15.8 ng/mL (4.8-37.3)
[2022-09-02] VITALS (11 sets, daily range): BP systolic 90–100; BP diastolic 57–66; PULSE 70–83; RESP 15–22; TEMP 36.7–37.3; O2SAT 92–95
[2022-09-02] MEDS: HYDROmorphone 1 mg/mL INJ 1 mL 0.5 MG IVP ×5 (00:34→21:46)
[2022-09-02] MEDS: D5-NS 0.45% + KCL 20 mEq 20 MEQ/1,000 ML BAG 100 MEQ IV ×3 (00:37→21:45)
[2022-09-02] MEDS: heparin 5,000 unit/mL INJ 1 mL 5000 UNIT SUBCUT ×2 (04:39→16:25)
[2022-09-02] MEDS: pantoprazole 40 mg SDV IVP ×2 (04:39→16:13)
[2022-09-02 04:42] LABS: Basophils # 0.1 10^3/uL (0.0-0.1); Basophils % 0.7 %; Eosinophils # 0.9 10^3/uL (0.0-0.8); Eosinophils % 11.9 %; Hematocrit 25.5 % (37.0-47.0); Hemoglobin 7.8 g/dL (11.5-15.3); Lymphocytes # 1.6 10^3/uL (0.8-4.8); Lymphocytes % 22.7 %; Mean Corpuscular HGB Conc 30.6 g/dL (30.0-36.0); Mean Corpuscular Hemoglobin 29.9 pg (28.0-34.0); Mean Corpuscular Volume 97.7 fl (81-99); Mean Platelet Volume 10.9 fL (7.4-10.4); Monocytes # 0.5 10^3/uL (0.2-0.9); Neutrophils # 4.11 10^3/uL (1.8-7.7); Neutrophils % 57.4 %; Nucleated Red Blood Cells % 0 %; Platelet Count 265 10^3/cmm (130-400); Red Blood Count 2.61 10^6/uL (4.1-5.3); White Blood Count 7.2 10^3/uL (4.0-10.0)
[2022-09-02 05:02] LABS: Alanine Aminotransferase < 5 U/L (0-33); Albumin Level 2.6 g/dL (3.5-5.2); Alkaline Phosphatase 74 U/L (35-105); Anion Gap 9.8 (5-19); Aspartate Amino Transferase 12 U/L (0-32); Blood Urea Nitrogen 4 mg/dL (6-20); Calcium 8.4 mg/dL (8.5-10.5); Carbon Dioxide 24 mmol/L (22-29); Chloride 102 mmol/L (98-107); Chol HDL Ratio 4.03 mg/dL (0.0-4.40); Cholesterol 121 mg/dL (0-200); Globulin 3.1 g/dL (1.3-4.6); Glomerular Filtration Rate 250.3 mL/min (90-130); Glucose 90 mg/dL (65-115); HDL Cholesterol 30 mg/dL (60-100); LDL Cholesterol Calculated 70 mg/dL (50-129); Magnesium 1.5 mg/dL (1.7-2.3); Osmolality Calculated 270 mOsm/kg (285-295); Phosphorus 3.3 mg/dL (2.5-4.5); Potassium 3.8 mmol/L (3.5-5.1); Sodium 132 mmol/L (136-145); Total Bilirubin 0.2 mg/dL (0.15-1.2); Total Protein 5.7 g/dL (6.6-8.7); Triglycerides 106 mg/dL (0-150); VLDL Cholestrol Calculation 21 mg/dL (0-30)
[2022-09-02 07:39] LABS: Estmated Average Glucose 82; Hemoglobin A1C 4.5 % (4.0-6.0)
[2022-09-02] MEDS: multivitamin therapeutic Tablet 1 TAB PO (08:30)
[2022-09-02] MEDS: folic acid 1 mg Tablet PO (08:30)
[2022-09-02] MEDS: LORazepam 2 mg Tablet PO ×2 (08:30→12:30)
[2022-09-02] MEDS: thiamine 100 mg Tablet PO (08:30)
--- NOTE | 2022-09-02 10:45 | PC.CHAP ---
Pastoral Care Encounter/Spiritual Assessment Type of Contact [] Declined plant manager visit [] Patient/Family/Request visit [] Outpatient visit [] Follow-up visit [] Physician referral [] Code/Alert [x] Routine visit [] Staff referral [] Actively dying [] Patient sleeping [] Family support [] [] Out of room [] Palliative care [] [x] Receiving care in room [] Pre-surgical visit [] Trauma [] Long length of stay [] ICU visit [] Other: Relational/Emotional Strength [x] Patient feels connected with others/family/visitors/staff [] Distress [] Loneliness/isolation [] Abandonment Spirituality of Patient [x] Person of [place] [] Attends Voodoo of their [place] [x] Believes in Prayer [] Reads Bible or Congregational materials [] There are Spiritual issues to be addressed Oncology Navigator Interventions [x] Prayer [x] Active listening [x] Non-anxious presence [x] Spiritual/emotional support [] Crisis/trauma care [x] Spiritual counseling [] Bereavement support [] Provided bereavement packet [] Provided Bible/devotional materials [] Provided toy/stuffed animal, coloring book to patient or family member [] Provided Communion [] Anointing/[place] [] Salvation [x] Completed spiritual assessment [] Other: Impact on Illness or Injury [] Angry [] Fearful [x] Anxious [] Often cries [] Exhaustion [] Unable to work [] Unable to attend scientologist [] Unable to walk/stand [] Unable to read [] Unable to drive [] Unable to eat/drink [] Unable to sleep [] Unable to be with family [] Patient intubated [] Other: Summary in some pain jimmy observe fo few days to see how she is doing waiting doctor before she can go home Time spent with patient 10 mins
[2022-09-02] MEDS: acetaminophen 325 mg Tablet 650 MG PO ×2 (12:30→20:41)
[2022-09-02] MEDS: iron sucrose 200 MG in sodium chloride 0.9% (100 ml) 100 ML 220 MG IV (13:40)
--- NOTE | 2022-09-02 13:59 | PM.PN ---
Subjective Subjective: Overnight pain medications were changed to Dilaudid every 4 hour as needed. Patient has received 3 doses of 0.5 Dilaudid since midnight. Patient has received 2 mg of oral Ativan and 2 mg of IV Ativan since admission. Patient has remained hemodynamically stable and afebrile. Today morning patient states she is feeling slightly better. Vitals/I&O/Wt Last Vital Signs Temp 98.1 F 09/02/22 11:45 Pulse 76 09/02/22 11:45 Resp 16 09/02/22 11:45 BP 95/64 09/02/22 11:45 Pulse Ox 95 09/02/22 11:45 O2 Del Method 09/02/22 11:45 09/01/22 09/02/22 09/02/22 22:59 06:59 14:59 Intake Total 1011.2 2010.2 993.333 / 3004.533 1360 / 1360 Output Total 600 / 600 800 / 800 Balance 1011.2010. 393.333 / 2404.533 560 / 560 Weight last 48 hrs Weight 59.557 kg Weight 53.07 kg Physical Exam Narrative: General: No acute distress, AO x3 HEENT: PERRLA, pupils bilaterally equal and reactive Chest: Normal vesicular breath sounds, no added sounds, equal good air entry bilaterally CVS: S1-S2 regular, no murmurs, no tachycardia, no gallops, no rubs Abdomen: Soft, tender epigastric area, no organomegaly, bowel sounds present, slightly sluggish Neuro: No focal deficits, no facial deformity, AO x3, power 5/5 in all limbs Data 09/02/22 03:58 09/02/22 03:58 A&P Assessment and plan (1) Pancreatitis: Seen on CT scan. Lipase elevated. Most likely alcoholic pancreatitis. No gallstones. Advance to clear liquid diet. Patient counseled in detail regarding multiple small meals. Also counseled in detail regarding slow ingestion. Continue IV fluids with D5 NS at 75 cc/h. Zofran as needed Protonix twice daily. Dilaudid 0.5 every 6 as needed Qualifiers: Acute pancreatitis complication: unspecified Chronicity: acute Pancreatitis type: alcohol induced Qualified Code(s): K85.20 - Alcohol induced acute pancreatitis without necrosis or infection (2) Alcohol dependence: [facility] protocol. Watch for alcohol withdrawal seizures. Fall precautions, aspiration precaution (3) Portal vein thrombosis: Supposed to be on Eliquis 5 mg twice daily. Not on treatment as she ran out of medications. CT abdomen pelvis done today shows patent portal vein. We will hold off on any further treatment on discharge. Plan Full code Clear liquid diet. Protonix for PUD prophylaxis Heparin for DVT prophylaxis Attestations Medical Necessity Statement*: Requires further hospitalization for management of alcohol induced pancreatitis while diet is advanced given poor oral intake, multiple IV pain medication requirement, alcohol abuse Time Spent in Patient Care: Greater than 35 minutes Coding Level of Care Code Acute Implementation Project Manager for [facility] Fwstephanie Diagnoses Pancreatitis K85.20 Acute pancreatitis complication: unspecified Chronicity: acute Pancreatitis type: alcohol induced Alcohol dependence F10.20 Portal vein thrombosis I81
[2022-09-02] MEDS: LORazepam 2 mg/mL INJ 1 mL IVP (16:14)
[2022-09-03] VITALS (8 sets, daily range): BP systolic 96–112; BP diastolic 57–69; PULSE 75–90; RESP 15–18; TEMP 36.8–37.1; O2SAT 91–95
[2022-09-03] MEDS: pantoprazole 40 mg SDV IVP (03:05)
[2022-09-03] MEDS: heparin 5,000 unit/mL INJ 1 mL 5000 UNIT SUBCUT (03:05)
[2022-09-03] MEDS: HYDROmorphone 1 mg/mL INJ 1 mL 0.5 MG IVP ×2 (03:07→10:46)
[2022-09-03 06:03] LABS: Lipase 54 U/L (13-60)
[2022-09-03] MEDS: thiamine 100 mg Tablet PO (08:20)
[2022-09-03] MEDS: folic acid 1 mg Tablet PO (08:20)
[2022-09-03] MEDS: multivitamin therapeutic Tablet 1 TAB PO (08:20)
[2022-09-03] MEDS: acetaminophen 325 mg Tablet 650 MG PO (08:20)
[2022-09-03] MEDS: D5-NS 0.45% + KCL 20 mEq 20 MEQ/1,000 ML BAG 100 MEQ IV (08:54)
[2022-09-03] MEDS: ondansetron 2 mg/ML SDV 2 mL 4 MG IVP (10:50)
--- NOTE | 2022-09-03 12:23 | PM.DCS ---
Discharge Providers Date of Admission: 09/01/22 10:47 Date of Discharge: September 03, 2022 Attending Provider at Admission: Sourav Valladares MD Attending Provider at Discharge: Sourav Valladares MD Diagnoses at Discharge Discharge Diagnosis (1) Pancreatitis: Status: Acute Qualifiers: Acute pancreatitis complication: unspecified Chronicity: acute Pancreatitis type: alcohol induced Qualified Code(s): K85.20 - Alcohol induced acute pancreatitis without necrosis or infection (2) Alcohol dependence: Status: Acute (3) Portal vein thrombosis: Status: Acute Reason for Visit Reason for Visit: abd pain Brief History: Raquel Govea is a 36 year old female with past medical history of pancreatitis, alcohol abuse with 1 pint of vodka daily, portal vein thrombosis, alcohol withdrawal seizures presented to the ER because of abdominal pain ongoing for last 2 days worsening since last night along with nausea and one episode of vomiting.? Vomitus contained food particles and not associated with hematemesis.? Patient drinks 1 pint of vodka daily with last consumption of alcohol last night.? Does not report any other drug abuse.? For a possible history of portal vein thrombosis supposed to be on Eliquis as an outpatient which she stopped taking many months ago when she ran out of medications.? She also gives history of alcohol withdrawal seizures with last seizure 1 month ago. Hospital Course Hospital Course Patient was admitted to hospital further evaluation and management of alcohol induced pancreatitis. She was treated conservatively by keeping her n.p.o. and bowel rest along with IV hydration. She responded well to the treatment and diet was gradually advanced with clear liquid diet. Patient has not had any vomiting or nausea with clear liquid diet and hence being discharged in hemodynamically stable condition on oral Zofran and pain medications as needed. She does have a past history of portal vein thrombosis which seem to have resolved on the CT scan done during this hospitalization hence anticoagulation was not continued. She is advised to continue taking clear liquid diet for next 3 to 4 days and advance gradually to brat/softer diet and then to a regular diet within the next 1 week. She is advised and counseled against consumption of alcohol. Physical Exam Narrative: General: No acute distress, AO x3 HEENT: PERRLA, pupils bilaterally equal and reactive Chest: Normal vesicular breath sounds, no added sounds, equal good air entry bilaterally CVS: S1-S2 regular, no murmurs, no tachycardia, no gallops, no rubs Abdomen: Soft, nontender, no organomegaly, bowel sounds present Neuro: No focal deficits, no facial deformity, AO x3, power 5/5 in all limbs Discharge Data Studies Completed and Pending Completed Studies During Hospitalization Category Date Time Status CT abdomen pelvis w con* [id number] Stat Cat Scan 09/01/22 09:36 Completed Pending at discharge Category Date Time Status Occult Blood Stool [Immunochemical Fecal OCB] Routine Lab 09/02/22 11:09 Uncollected Radiology Impressions Abdomen/Pelvis CT 09/01/22 09:36 IMPRESSION: 1. Acute pancreatitis. 2. Since the previous examination numerous peripancreatic fluid collections have developed measuring up to 6 cm in diameter which are consistent with multiple pancreatic pseudocysts. 3. Small ascites. Laboratory Results WBC 7.2 10^3/uL (4.0-10.0) 09/02/22 03:58 RBC 2.61 10^6/uL (4.1-5.3) L 09/02/22 03:58 Hgb 7.8 g/dL (11.5-15.3) L 09/02/22 03:58 Hct 25.5 % (37.0-47.0) L 09/02/22 03:58 MCV 97.7 fl (81-99) 09/02/22 03:58 MCH 29.9 pg (28.0-34.0) 09/02/22 03:58 MCHC 30.6 g/dL (30.0-36.0) 09/02/22 03:58 RDW 16.0 % (12.1-15.1) H 09/02/22 03:58 Plt Count 265 10^3/cmm (130-400) 09/02/22 03:58 MPV 10.9 fL (7.4-10.4) H 09/02/22 03:58 Neut % (Auto) 57.4 % 09/02/22 03:58 Lymph % (Auto) 22.7 % 09/02/22 03:58 Titus % (Auto) 7.0 % 09/02/22 03:58 Eos % (Auto) 11.9 % 09/02/22 03:58 Baso % (Auto) 0.7 % 09/02/22 03:58 Neut # (Auto) 4.11 10^3/uL (1.8-7.7) 09/02/22 03:58 Lymph # (Auto) 1.6 10^3/uL (0.8-4.8) 09/02/22 03:58 Titus # (Auto) 0.5 10^3/uL (0.2-0.9) 09/02/22 03:58 Eos # (Auto) 0.9 10^3/uL (0.0-0.8) H 09/02/22 03:58 Baso # (Auto) 0.1 10^3/uL (0.0-0.1) 09/02/22 03:58 Nucleated RBC % (auto) 0 % 09/02/22 03:58 Nucleated RBCs # 0.0 /100WBC 09/02/22 03:58 Sodium 132 mmol/L (136-145) L 09/02/22 03:58 Potassium 3.8 mmol/L (3.5-5.1) 09/02/22 03:58 Chloride 102 mmol/L (98-107) 09/02/22 03:58 Carbon Dioxide 24 mmol/L (22-29) 09/02/22 03:58 Anion Gap 9.8 (5-19) 09/02/22 03:58 BUN 4 mg/dL (6-20) L 09/02/22 03:58 Creatinine 0.3 mg/dL (0.5-0.9) L 09/02/22 03:58 GFR Calculation 250.3 mL/min (90-130) H 09/02/22 03:58 Glucose 90 mg/dL (65-115) 09/02/22 03:58 Estimat Average Glucose 82 09/02/22 03:58 Hemoglobin A1c 4.5 % (4.0-6.0) 09/02/22 03:58 Calculated Osmolality 270 mOsm/kg (285-295) L 09/02/22 03:58 Calcium 8.4 mg/dL (8.5-10.5) L 09/02/22 03:58 Phosphorus 3.3 mg/dL (2.5-4.5) 09/02/22 03:58 Magnesium 1.5 mg/dL (1.7-2.3) L 09/02/22 03:58 Iron 25 ug/dL (37-145) L 09/01/22 09:25 TIBC 405 mcg/dl 09/01/22 09:25 % Saturation 6.1 % (20-50) L 09/01/22 09:25 Unsat Iron Binding 380 ug/dL (112-347) H 09/01/22 09:25 Total Bilirubin 0.2 mg/dL (0.15-1.2) 09/02/22 03:58 AST 12 U/L (0-32) 09/02/22 03:58 ALT < 5 U/L (0-33) 09/02/22 03:58 Alkaline Phosphatase 74 U/L (35-105) 09/02/22 03:58 Total Protein 5.7 g/dL (6.6-8.7) L 09/02/22 03:58 Albumin 2.6 g/dL (3.5-5.2) L 09/02/22 03:58 Globulin 3.1 g/dL (1.3-4.6) 09/02/22 03:58 Triglycerides 106 mg/dL (0-150) 09/02/22 03:58 Cholesterol 121 mg/dL (0-200) 09/02/22 03:58 LDL Cholesterol, Calc 70 mg/dL (50-129) 09/02/22 03:58 Total VLDL Cholesterol 21 mg/dL (0-30) 09/02/22 03:58 HDL Cholesterol 30 mg/dL (60-100) L 09/02/22 03:58 Cholesterol/HDL Ratio 4.03 mg/dL (0.0-4.40) 09/02/22 03:58 Lipase 54 U/L (13-60) 09/03/22 04:36 Vitamin B12 501 pg/mL (232-1245) 09/01/22 09:25 Folate 15.8 ng/mL (4.8-37.3) 09/01/22 16:01 Procalcitonin 0.05 ng/mL (0-0.5) 09/01/22 09:25 TSH 1.45 uIU/mL (0.27-4.20) 09/01/22 09:25 HCG, Qual Negative (Negative) 09/01/22 09:25 Urine Color Yellow (Yellow) 09/01/22 10:15 Urine Appearance Clear (CLEAR) 09/01/22 10:15 Urine pH 5 (5-7) 09/01/22 10:15 Ur Specific [place] 1.015 (1.005-1.030) 09/01/22 10:15 Urine Protein Neg (Negative) 09/01/22 10:15 Urine Glucose (UA) Norm (Normal) 09/01/22 10:15 Urine Ketones 1+ (Negative) H 09/01/22 10:15 Urine Blood Neg (Negative) 09/01/22 10:15 Urine Nitrate Negative (Negative) 09/01/22 10:15 Urine Bilirubin Neg (Negative) 09/01/22 10:15 Urine Urobilinogen Norm mg/dL (Negative) 09/01/22 10:15 Ur Leukocyte Esterase Negative (Negative) 09/01/22 10:15 Urine Opiates Screen Positive ng/mL (Negative) H 09/01/22 10:15 Ur Barbiturates Screen Negative ng/mL (Negative) 09/01/22 10:15 Ur Phencyclidine Scrn Negative ng/mL (Negative) 09/01/22 10:15 Ur Amphetamines Screen Negative ng/mL (Negative) 09/01/22 10:15 U Benzodiazepines Scrn Positive ng/mL (Negative) H 09/01/22 10:15 Urine Cocaine Screen Negative ng/mL (Negative) 09/01/22 10:15 U Marijuana (THC) Screen Negative ng/mL (Negative) 09/01/22 10:15 Vitals Last Vital Signs Temp 98.5 F 09/03/22 11:34 Pulse 81 09/03/22 11:34 Resp 15 09/03/22 11:34 BP 112/64 09/03/22 11:34 Pulse Ox 95 09/03/22 11:34 O2 Del Method 09/03/22 11:34 Discharge Plan Discharge Patient Disposition: Home Condition: Stable Prescriptions: New tramadol 50 mg tablet 50 mg PO Q6H PRN (Reason: pain) Qty: 10 0RF ondansetron 4 mg tablet,disintegrating 4 mg PO Q8H PRN (Reason: nausea and vomiting) 4 Days Qty: 14 0RF pantoprazole [Protonix] 40 mg tablet,delayed release (DR/EC) 40 mg PO DAILY 28 Days Qty: 30 0RF Continued thiamine mononitrate (vit B1) [Vitamin B-1 (mononitrate)] 100 mg Tablet 100 mg PO DAILY Qty: 30 0RF multivitamin with folic acid [Thera] 400 mcg Tablet 1 tab PO DAILY Qty: 30 0RF Discharge Orders: Discharge Order (Routine); Ordered 09/03/22 Ordered By: Sourav Valladares Referrals: Nasir Garber MD [Physician] - 09/09/22 8:30 am (Please arrive 15 min early to fill out paperwork. You will see Dr. Nasir Garber Sep 09 2022 at 0830 am. ) Discharge Diet: Advance as tolerated and Clear Liquid Discharge Activity: Resume usual activity and Increase activity as tolerated Patient Instructions: Opioid Safety Activity Restrictions/Additional Instructions: Please continue taking clear liquid diet going forward for next 3 to 4 days and advance gradually to soft/brat diet. Please try to avoid consumption of alcohol. Discharge Attestations Time Spent in Discharge Care*: greater than 30 min Specific Discharge Activities: educating patient, discussing with social work case manager/social workers/dc planners, documenting/other paperwork and evaluating patient/reviewing data Status at Discharge: Cognitive status at discharge: cognitively intact, Behavioral status at discharge: cooperative, Functional status at discharge: independent ambulation, Overall status at discharge: patient is progressing back to baseline Quality Metrics Clinical Quality Measures [ No reported AMI, CVA or VTE this stay] Coding Level of Care Code Acute g DC note Diagnoses Pancreatitis K85.20 Acute pancreatitis complication: unspecified Chronicity: acute Pancreatitis type: alcohol induced Alcohol dependence F10.20 Portal vein thrombosis I81
== END 2022-09-03 14:05 | disposition home or self-care (01) | DRG 440 ==
LOC: ER 12:50 → MEDSURG 15:29
PROVIDERS: Physician Assistant; Admitting Provider Student in an Organized Health Care Education/Training Program; Emergency Provider Family Medicine; Visit Provider Student in an Organized Health Care Education/Training Program
DX: K85.20 Alcohol induced acute pancreatitis without necrosis or infection (principal); F10.20 Alcohol dependence, uncomplicated; Z86.718 Personal history of other venous thrombosis and embolism
CPT/HCPCS: 36415; 74177; 80053; 80061; 80306; 81003; 82607; 82746; 83036; 83540; 83550; 83690; 83735; 84100; 84145; 84443; 84703; 85025; 94664; 96372; 96374; 96375; 99285; C9113; J1170; J1644; J1756; J2060; J2270; J2405; J3411; J3490; J7030; Q9967

== ENCOUNTER 2022-09-03 19:41 | Emergency (ER) | payer MEDICAID, SELFPAY ==
[2022-09-03 19:45] VITALS: BP 137/85; PULSE 110; RESP 18; TEMP 37.1; O2SAT 98; BMI 22.1
== END 2022-09-03 22:41 | disposition left against medical advice (07) ==
PROVIDERS: Emergency Provider Family Medicine
DX: Z53.21 Procedure and treatment not carried out due to patient leaving prior to being seen by health care provider (principal)

== ENCOUNTER 2022-09-16 09:40 | Inpatient (IN) | payer MEDICAID, SELFPAY ==
[2022-09-16] VITALS (23 sets, daily range): BP systolic 119–138; BP diastolic 67–94; PULSE 75–100; RESP 15–18; TEMP 36.6–37.4; O2SAT 91–98; BMI 22.1
[2022-09-16 11:22] LABS: Blood Urine 2+ (Negative); Glucose Urine UA Norm (Normal); Ketones Urine 1+ (Negative); Nitrate Urine Negative (Negative); Protein Urine 1+ (Negative); Specific Gravity, Urine 1.025 (1.005-1.030); Urine Appearance Cloudy (CLEAR); Urine Color Amber (Yellow); pH Urine 5 (5-7)
[2022-09-16 11:23] LABS: Add Urine Microscopic? YES; Bilirubin Urine 2+ (Negative); Leukocyte Esterase Urine 1+ (Negative); Urobilinogen Urine 4 mg/dL (Negative)
[2022-09-16 11:25] LABS: Add Urine Culture? Yes; Bacteria Urine 2+ /hpf; Mucus Urine 3+ /hpf; RBC Urine 0-4 /hpf (0-2); WBC Urine 0-4 /hpf (0-5)
[2022-09-16 11:27] LABS: Basophils % 0.3 %; Eosinophils # 0.1 10^3/uL (0.0-0.8); Eosinophils % 0.9 %; Hemoglobin 11.1 g/dL (11.5-15.3); Lymphocytes # 0.8 10^3/uL (0.8-4.8); Lymphocytes % 10.5 %; Mean Corpuscular Hemoglobin 28.7 pg (28.0-34.0); Mean Corpuscular Volume 95.6 fl (81-99); Monocytes # 0.4 10^3/uL (0.2-0.9); Monocytes % 5.2 %; Neutrophils # 6.54 10^3/uL (1.8-7.7); Neutrophils % 82.7 %; Nucleated Red Blood Cells % 0 %; Platelet Count 313 10^3/cmm (130-400); Red Blood Count 3.87 10^6/uL (4.1-5.3); White Blood Count 7.9 10^3/uL (4.0-10.0)
[2022-09-16] MEDS: morphine 4 mg/mL SDV 1 mL 2 MG IVP ×2 (11:34→15:23)
[2022-09-16] MEDS: sodium chloride 0.9% 1,000 ML 999 ML IV ×2 (11:34→12:40)
[2022-09-16] MEDS: ondansetron 2 mg/ML SDV 2 mL 4 MG IVP (11:34)
[2022-09-16 11:49] LABS: Alanine Aminotransferase 6 U/L (0-33); Albumin Level 4.2 g/dL (3.5-5.2); Alkaline Phosphatase 107 U/L (35-105); Anion Gap 24.3 (5-19); Aspartate Amino Transferase 15 U/L (0-32); Blood Urea Nitrogen 16 mg/dL (6-20); C Reactive Protein 68.3 mg/L (0.0-4.9); Calcium 10.5 mg/dL (8.5-10.5); Carbon Dioxide 20 mmol/L (22-29); Chloride 93 mmol/L (98-107); Glomerular Filtration Rate 138.8 mL/min (90-130); Glucose 101 mg/dL (65-115); Osmolality Calculated 277 mOsm/kg (285-295); Potassium 4.3 mmol/L (3.5-5.1); Sodium 133 mmol/L (136-145); Total Bilirubin 0.4 mg/dL (0.15-1.2); Total Protein 9.2 g/dL (6.6-8.7)
[2022-09-16 11:54] LABS: HCG, Serum Qual Negative (Negative)
[2022-09-16 11:56] LABS: Lipase 926 U/L (13-60)
--- NOTE | 2022-09-16 12:26 | ED_ITS ---
Documented by User: Raquel Israel, IN [employer]-C 09/23/22 09:51 HPI - Abdominal Pain General: Chief Complaint: Abdominal Pain Stated Complaint: abd pain Time Seen by Provider: 09/16/22 10:11 History of Present Illness: Patient is in today for abdominal pain. She re ports that she had sudden onset severe abdominal pain starting yesterday. She reports that she is really not been able to eat for about 3 days because she has been very nauseated. She offers that she has a history of pancreatitis and was recently discharged from the hospital for this. She reports that she felt better after discharge from the hospital but then started feeling bad again 3 days ago with the severe pain starting yesterday. She reports that her last bowel movement was yesterday normal. She reports that she is urinating but it is darker than typical. She reports that she has not had alcohol for couple of weeks. She denies any fever, chills. She denies . Associated Symptoms: Reports nausea and vomiting; Denies chills and fever(s) Related Data: Date of Last Menstrual Period: 11/07/21 Review of Systems Const: Denies: fever(s), chills or body aches Card: Denies: chest pain, palpitations or irregular heart rhythm Resp: Denies: dyspnea, productive cough or non-productive cough GI: Reports: abdominal pain, nausea and vomiting : Reports: oliguria Neuro: Denies: headache(s), numbness in extremities or weakness in extremities PFS ED PFSH: Medical History Acute alcoholic pancreatitis Alcohol abuse Alcohol withdrawal seizure Portal vein thrombosis Thrombocytopenia Surgical History No pertinent past surgical history Family History Brother Liver failure Social History Smoking and tobacco status: never smoked Alcohol intake: current Alcohol intake frequency: few times a month Alcohol type: hard liquor Household members: significant other Housing: House 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 She has a difficult time getting comfortable and is continually holding her abdomen Neck/C-Spine: COMMON NORMALS: no JVD Resp: COMMON NORMALS: normal respiratory effort, No use of accessory muscles and clear to auscultation bilaterally AUSCULTATION: clear to auscultation bilaterally Cardio: COMMON NORMALS: no JVD, regular rate, regular rhythm, S1 normal heart sound present and S2 normal heart sound present RATE: regular rate RHYTHM: regular rhythm HEART SOUNDS: S1 normal heart sound present and S2 normal heart sound present GI: COMMON NORMALS: Soft to palpation INSPECTION: Yes normal to inspection AUSCULTATION: Yes Hypoactive bowel sounds present PALPATION: Yes Soft to palpation and Yes Tenderness to palpation present (GI) (Generalized tenderness worse right upper quadrant) : COMMON NORMALS: Yes no CVA tenderness BLADDER/KIDNEY EXAM: Yes no CVA tenderness Back/Pelvis: COMMON NORMALS: no CVA tenderness Neuro: COMMON NORMALS: patient oriented x3, moves all extremities and no focal motor deficits SENSORIUM/ORIENTATION: Yes alert Course Vital Signs: Vital signs: Vital Signs Temperature 97.9 F 09/19/22 11:44 Pulse Rate 75 09/19/22 11:44 Respiratory Rate 16 09/19/22 11:44 Blood Pressure 132/75 09/19/22 11:44 Pulse Oximetry 94 09/19/22 11:44 Oxygen Delivery Me thod 09/19/22 11:44 MDM - Abdominal Pain Medical Decision Making Discussed patient with Dr. Pretty who agrees to assume care of patient given her labs indicating acute pancreatitis. Patient will need inpatient admission. Lab Data 09/16/22 11:21 09/16/22 11:21 Labs/Radiology: Radiology Impressions Abdomen/Pelvis CT 09/16/22 13:30 IMPRESSION: 1. Evidence of acute pancreatitis with pancreatic duct dilatation. 2. Interval increase in the pseudocysts compared to August 24, 2022 described above with the largest pseudocyst measuring 4 to 5 cm. 3. Coarse patchy infiltrates in the lung bases. Abdomen Ultrasound 09/16/22 14:50 IMPRESSION: 1. Pancreatitis with pancreatic pseudocysts. Pancreatic pseudocysts detail on the concurrent CT abdomen pelvis. 2. Small amount of sludge in the gallbladder otherwise normal. Normal common bile duct. 3. Mild hepatomegaly. 4. No hydronephrosis in RIGHT kidney. Laboratory Results WBC 7.9 10^3/uL (4.0-10.0) 09/16/22 11: RBC 3.87 10^6/uL (4.1-5.3) L 09/16/22 11: Hgb 11.1 g/dL (11.5-15.3) L 09/16/22 11:21 Hct 37.0 % (37.0-47.0) 09/16/22 11:21 MCV 95.6 fl (81-99) 09/16/22 11:21 MCH 28.7 pg (28.0-34.0) 09/16/22 11: MCHC 30.0 g/dL (30.0-36.0) 09/16/22 11: RDW 17.0 % (12.1-15.1) H 09/16/22 11:21 Plt Count 313 10^3/cmm (130-400) 09/16/22 11: MPV 11.0 fL (7.4-10.4) H 09/16/22 11:21 Neut % (Auto) 82.7 % 09/16/22 11:21 Lymph % (Auto) 10.5 % 09/16/22 11:21 [place] % (Auto) 5.2 % 09/16/22 11:21 Eos % (Auto) 0.9 % 09/16/22 11:21 Baso % (Auto) 0.3 % 09/16/22 11:21 Neut # (Auto) 6.54 10^3/uL (1.8-7.7) 09/16/22 11:21 Lymph # (Auto) 0.8 10^3/uL (0.8-4.8) 09/16/22 11:21 [place] # (Auto) 0.4 10^3/uL (0.2-0.9) 09/16/22 11:21 Eos # (Auto) 0.1 10^3/uL (0.0-0.8) 09/16/22 11:21 Baso # (Auto) 0.0 10^3/uL (0.0-0.1) 09/16/22 11:21 Nucleated RBC % (auto) 0 % 09/16/22 11:21 Nucleated RBCs # 0.0 /100WBC 09/16/22 11:21 Sodium 133 mmol/L (136-145) L 09/16/22 11:21 Potassium 4.3 mmol/L (3.5-5.1) 09/16/22 11:21 Chloride 93 mmol/L (98-107) L 09/16/22 11:21 Carbon Dioxide 20 mmol/L (22-29) L 09/16/22 11:21 Anion Gap 24.3 (5-19) H 09/16/22 11:21 BUN 16 mg/dL (6-20) 09/16/22 11:21 Creatinine 0.5 mg/dL (0.5-0.9) 09/16/22 11:21 GFR Calculation 138.8 mL/min (90-130) H 09/16/22 11:21 Glucose 101 mg/dL (65-115) 09/16/22 11:21 Calculated Osmolality 277 mOsm/kg (285-295) L 09/16/22 11:21 Lactic Acid 1.7 mmol/L (0.5-2.2) 09/16/22 11:21 Calcium 10.5 mg/dL (8.5-10.5) 09/16/22 11:21 Total Bilirubin 0.4 mg/dL (0.15-1.2) 09/16/22 11:21 AST 15 U/L (0-32) 09/16/22 11:21 ALT 6 U/L (0-33) 09/16/22 11:21 Alkaline Phosphatase 107 U/L (35-105) H 09/16/22 11:21 C-Reactive Protein 68.3 mg/L (0.0-4.9) H 09/16/22 11:21 Total Protein 9.2 g/dL (6.6-8.7) H 09/16/22 11:21 Albumin 4.2 g/dL (3.5-5.2) 09/16/22 11:21 Globulin 5.0 g/dL (1.3-4.6) H 09/16/22 11:21 Lipase 926 U/L (13-60) H 09/16/22 11:21 HCG, Qual Negative (Negative) 09/16/22 11:21 Urine Color Melyssa (Yellow) 09/16/22 11:07 Urine Appearance Cloudy (CLEAR) A 09/16/22 11:07 Urine pH 5 (5-7) 09/16/22 11:07 Ur Specific [place] 1.025 (1.005-1.030) 09/16/22 11:07 Urine Protein 1+ (Negative) H 09/16/22 11:07 Urine Glucose (UA) Norm (Normal) 09/16/22 11:07 Urine Ketones 1+ (Negative) H 09/16/22 11:07 Urine Blood 2+ (Negative) H 09/16/22 11:07 Urine Nitrate Negative (Negative) 09/16/22 11:07 Urine Bilirubin 2+ (Negative) H 09/16/22 11:07 Urine Urobilinogen 4 mg/dL (Negative) H 09/16/22 11:07 Ur Leukocyte Esterase 1+ (Negative) H 09/16/22 11:07 Urine RBC 0-4 /hpf (0-2) H 09/16/22 11:07 Urine WBC 0-4 /hpf (0-5) H 09/16/22 11:07 Ur Squamous Epith Cells 5-10 /hpf (0-5) H 09/16/22 11:07 Amorphous Sediment Not Reportable 09/16/22 11:07 Urine Bacteria 2+ /hpf (NONE) H 09/16/22 11:07 Urine Mucus 3+ /hpf 09/16/22 11:07 Discharge Plan Discharge Patient Disposition: Admitted As Inpatient Admit Provider: Sourav Valladares Clinical Impression: Pancreatitis, Alcohol dependence Condition: Stable Discharge Diet: Advance as tolerated Discharge Activity: Resume usual activity Sign Out Sign Out Data: Patient Sign Out occurred on 09/16/22 at 12:46. Patient's care was discussed, and care was transferred from to Mark Pretty DO. Coding Level of Care Code ED Cocoa Bean Roaster for Chg Fwd Exam Detailed Documented by User: Mark Pretty DO 09/29/22 06:24 HPI - Abdominal Pain General: Chief Complaint: Abdominal Pain Stated Complaint: abd pain Time Seen by Provider: 09/16/22 10:11 Source: patient Mode of arrival: ambulatory History of Present Illness: MD elicited complaint: abdominal pain Pertinent past history: other (Pancreatitis secondary to alcohol abuse) Onset (ago): day(s) Pain Consistency: constant Location: LUQ Severity: severe Quality: sharp Exacerbating factors: nothing Relieving factors: nothing Associated Symptoms: Reports bloating, change in stool character, GI cramping, nausea, poor appetite and vomiting; Denies anorexia, belching, change in bowel habits, chills, coffee ground emesis, constipation, diarrhea, dyspepsia, dysuria, excessive flatus, fever(s), heartburn, hematochezia, hematuria, hematemesis, fecal incontinence, loose stools and melena Review of Systems Const: Denies: fever(s), chills or body aches Card: Denies: chest pain, palpitations or irregular heart rhythm Resp: Denies: dyspnea, productive cough or non-productive cough GI: Reports: abdominal pain, nausea, vomiting, bloating, GI cramping and change in stool character; Denies: hematemesis, coffee ground emesis, heartburn, diarrhea, constipation, belching, excessive flatus, fecal incontinence, change in bowel habits, hematochezia or melena : Reports: oliguria; Denies: dysuria or hematuria Neuro: Denies: headache(s), numbness in extremities or weakness in extremities PFSH ED PFSH: Medical History Acute alcoholic pancreatitis Alcohol abuse Alcohol withdrawal seizure Portal vein thrombosis Thrombocytopenia Surgical History No pertinent past surgical history Family History Brother Liver failure Social History Smoking and tobacco status: never smoked Alcohol intake: current Alcohol intake frequency: few times a month Alcohol type: hard liquor Household members: significant other Housing: House 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, [employer]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 Exam Const: COMMON NORMALS: no acute distress GENERAL APPEARANCE: cooperative and comfortable ORIENTATION/CONSCIOUSNESS: Yes awake, Yes oriented to person, Yes oriented to place and Yes oriented to time HENMT: COMMON NORMALS: normocephalic, atraumatic and hearing grossly normal bilaterally HEAD & SCALP: normocephalic and atraumatic Resp: COMMON NORMALS: normal respiratory effort, No retractions, No use of accessory muscles and clear to auscultation bilaterally AUSCULTATION: clear to auscultation bilaterally Cardio: COMMON NORMALS: regular rate, regular rhythm and No murmurs present (Cardio) RATE: regular rate RHYTHM: regular rhythm GI: COMMON NORMALS: No hepatosplenomegaly present AUSCULTATION: Yes norm oactive bowel sounds PALPATION: Yes Tenderness to palpation present (GI) Details: LUQ, Yes Guarding due to palpation present (GI) and Yes No hepatosplenomegaly present Extremity: COMMON NORMALS: normal to inspection, capillary refill normal, no clubbing, cyanosis or edema, no calf tenderness and no pedal edema Neuro: SENSORIUM/ORIENTATION: Yes oriented to person, Yes oriented to place and Yes oriented to time Skin: COMMON NORMALS: no rashes or lesions noted GENERAL SKIN EXAM: no rashes or lesions noted Course Vital Signs: Vital signs: Vital Signs Temperature 97.9 F 09/19/22 11:44 Pulse Rate 75 09/19/22 11:44 Respiratory Rate 16 09/19/22 11:44 Blood Pressure 132/75 09/19/22 11:44 Pulse Oximetry 94 09/19/22 11:44 Oxygen Delivery Me thod 09/19/22 11:44 MDM - Abdominal Pain Medical Decision Making Discussed patient with Dr. Pretty who agrees to assume care of patient given her labs indicating acute pancreatitis. Patient will need inpatient admission. Patient care handoff received from [place] Israel. I personally saw and evaluated patient and reperformed snell portions of E/M. Patient has acute pancreatitis second alcohol ingestion. Discussed with patient reviewed findings discussed with hospitalist orders written Medical Records I reviewed the patient's medical records. Lab Data I reviewed the patient's lab results. 09/16/22 11:21 09/16/22 11:21 Labs/Radiology: Radiology Impressions Abdomen/Pelvis CT 09/16/22 13:30 IMPRESSION: 1. Evidence of acute pancreatitis with pancreatic duct dilatation. 2. Interval increase in the pseudocysts compared to August 24, 2022 described above with the largest pseudocyst measuring 4 to 5 cm. 3. Coarse patchy infiltrates in the lung bases. Abdomen Ultrasound 09/16/22 14:50 IMPRESSION: 1. Pancreatitis with pancreatic pseudocysts. Pancreatic pseudocysts detail on the concurrent CT abdomen pelvis. 2. Small amount of sludge in the gallbladder otherwise normal. Normal common bile duct. 3. Mild hepatomegaly. 4. No hydronephrosis in RIGHT kidney. Laboratory Results WBC 7.9 10^3/uL (4.0-10.0) 09/16/22 11:21 RBC 3.87 10^6/uL (4.1-5.3) L 09/16/22 11:21 Hgb 11.1 g/dL (11.5-15.3) L 09/16/22 11:21 Hct 37.0 % (37.0-47.0) 09/16/22 11:21 MCV 95.6 fl (81-99) 09/16/22 11:21 MCH 28.7 pg (28.0-34.0) 09/16/22 11:21 MCHC 30.0 g/dL (30.0-36.0) 09/16/22 11:21 RDW 17.0 % (12.1-15.1) H 09/16/22 11:21 Plt Count 313 10^3/cmm (130-400) 09/16/22 11:21 MPV 11.0 fL (7.4-10.4) H 09/16/22 11:21 Neut % (Auto) 82.7 % 09/16/22 11:21 Lymph % (Auto) 10.5 % 09/16/22 11:21 [place] % (Auto) 5.2 % 09/16/22 11:21 Eos % (Auto) 0.9 % 09/16/22 11:21 Baso % (Auto) 0.3 % 09/16/22 11:21 Neut # (Auto) 6.54 10^3/uL (1.8-7.7) 09/16/22 11:21 Lymph # (Auto) 0.8 10^3/uL (0.8-4.8) 09/16/22 11:21 [place] # (Auto) 0.4 10^3/uL (0.2-0.9) 09/16/22 11:21 Eos # (Auto) 0.1 10^3/uL (0.0-0.8) 09/16/22 11:21 Baso # (Auto) 0.0 10^3/uL (0.0-0.1) 09/16/22 11:21 Nucleated RBC % (auto) 0 % 09/16/22 11:21 Nucleated RBCs # 0.0 /100WBC 09/16/22 11:21 Sodium 133 mmol/L (136-145) L 09/16/22 11:21 Potassium 4.3 mmol/L (3.5-5.1) 09/16/22 11:21 Chloride 93 mmol/L (98-107) L 09/16/22 11:21 Carbon Dioxide 20 mmol/L (22-29) L 09/16/22 11:21 Anion Gap 24.3 (5-19) H 09/16/22 11:21 BUN 16 mg/dL (6-20) 09/16/22 11:21 Creatinine 0.5 mg/dL (0.5-0.9) 09/16/22 11:21 GFR Calculation 138.8 mL/min (90-130) H 09/16/22 11:21 Glucose 101 mg/dL (65-115) 09/16/22 11:21 Calculated Osmolality 277 mOsm/kg (285-295) L 09/16/22 11:21 Lactic Acid 1.7 mmol/L (0.5-2.2) 09/16/22 11:21 Calcium 10.5 mg/dL (8.5-10.5) 09/16/22 11:21 Total Bilirubin 0.4 mg/dL (0.15-1.2) 09/16/22 11:21 AST 15 U/L (0-32) 09/16/22 11:21 ALT 6 U/L (0-33) 09/16/22 11:21 Alkaline Phosphatase 107 U/L (35-105) H 09/16/22 11:21 C-Reactive Protein 68.3 mg/L (0.0-4.9) H 09/16/22 11:21 Total Protein 9.2 g/dL (6.6-8.7) H 09/16/22 11:21 Albumin 4.2 g/dL (3.5-5.2) 09/16/22 11:21 Globulin 5.0 g/dL (1.3-4.6) H 09/16/22 11:21 Lipase 926 U/L (13-60) H 09/16/22 11:21 HCG, Qual Negative (Negative) 09/16/22 11:21 Urine Color M[place]a (Yellow) 09/16/22 11:07 Urine Appearance Cloudy (CLEAR) A 09/16/22 11:07 Urine pH 5 (5-7) 09/16/22 11:07 Ur Specific [place] 1.025 (1.005-1.030) 09/16/22 11:07 Urine Protein 1+ (Negative) H 09/16/22 11:07 Urine Glucose (UA) Norm (Normal) 09/16/22 11:07 Urine Ketones 1+ (Negative) H 09/16/22 11:07 Urine Blood 2+ (Negative) H 09/16/22 11:07 Urine Nitrate Negative (Negative) 09/16/22 11:07 Urine Bilirubin 2+ (Negative) H 09/16/22 11:07 Urine Urobilinogen 4 mg/dL (Negative) H 09/16/22 11:07 Ur Leukocyte Esterase 1+ (Negative) H 09/16/22 11:07 Urine RBC 0-4 /hpf (0-2) H 09/16/22 11:07 Urine WBC 0-4 /hpf (0-5) H 09/16/22 11:07 Ur Squamous Epith Cells 5-10 /hpf (0-5) H 09/16/22 11:07 Amorphous Sediment Not Reportable 09/16/22 11:07 Urine Bacteria 2+ /hpf (NONE) H 09/16/22 11:07 Urine Mucus 3+ /hpf 09/16/22 11:07 Discharge Plan Discharge Patient Disposition: Admitted As Inpatient Admit Provider: Sourav Valladares Clinical Impression: Pancreatitis, Alcohol dependence Condition: Stable Discharge Diet: Advance as tolerated Discharge Activity: Resume usual activity Sign Out Sign Out Data: Patient Sign Out occurred on 09/16/22 at 12:46. Patient's care was discussed, and care was transferred from to Mark Pretty DO. Coding Level of Care Code ED Cocoa Bean Roaster for g Fwd Exam Detailed
[2022-09-16] MEDS: morphine 4 mg/mL SDV 1 mL IVP (12:40)
--- NOTE | 2022-09-16 13:30 | CT_ITS ---
WS: [id number] CT ABDOMEN PELVIS TECHNIQUE: Contrast-enhanced CT of the abdomen and pelvis with coronal and sagittal reformatted image s. CLINICAL INFORMATION: abd pain COMPARISON: CT September 16, 2022 DLP: 335.[address] scans at [facility] use at least one of these dose optimization techniques: automated e xposure control; mA and/or kV adjustment per patient size (includes targeted exams where dose is matc hed to clinical indication); or iterative reconstruction. FINDINGS: Interval increase in size of the multiple pancreatic pseudocysts compared to September 01, 2022. Pancr eatic pseudocysts along the pancreatic head and larisa hepatis measures 4.6 x 5.3 CM. Additional pseud ocyst along the pancreatic tail measures 5.1 x 4.2 cm increased in size from previous. Evidence of ac zoey pancreatitis with induration and inflammatory stranding about the pancreas. Chronic pancreatic du ctal dilatation. Portal vein and splenic vein are patent. Adrenal glands are normal. Additional small pseudocyst along the pancreatic head measuring 1.3 CM. Reactive lymph nodes in the upper abdomen. Coarse infiltrates in the lung bases. Normal renal parenchymal enhancement. No hydronephrosis. Normal caliber abdominal aorta. Heterogeneous uterine enhancement. Small amount of free fluid in the pelvis. Normal multifollicular o varies bilaterally. CT/CT abdomen pelvis w con* [id number] IMPRESSION: 1. Evidence of acute pancreatitis with pancreatic duct dilatation. 2. Interval increase in the pseudocysts compared to August 24, 2022 describe d above with the largest pseudocyst measuring 4 to 5 cm. 3. Coarse patchy infiltrates in the lung bases.
[2022-09-16 14:00] LABS: Lactic Sepsis W/Reflex 1.7 mmol/L (0.5-2.2)
[2022-09-16] MEDS: iohexol 350 mg/mL 500 mL Btl (per mL) IV (14:13)
--- NOTE | 2022-09-16 14:50 | US_ITS ---
WS: [id number] ULTRASOUND ABDOMEN LIMITED CLINICAL INFORMATION: GB/pancreas - recurrent pancreatitis COMPARISON: None. FINDINGS: Technically difficult examination due to bowel gas. Liver Size: Enlarged LEFT hepatic lobe. Craniocaudal length: 13.5 cm. Echogenicity: Coarse Surface nodularity: None. Mass (size and location): None. Bile ducts Intrahepatic ducts: Normal. Common bile duct diameter: 0.3 cm. Gallbladder Sludge Gallstones: None. Gallbladder sludge: Present Gallbladder wall thickening: None. Pericholecystic fluid: None. Sonographic [place] sign: Absent. Pancreas Echogenic pancreas compatible with acute pancreatitis. Pancreatic pseudocysts also seen on the [facility] CT abdomen pelvis. Pancreatic pseudocysts measures 6.3 x 5.6 x 5.0 cm at the larisa hepatis with compression of the IVC. Additional pseudocyst involving the pancreatic tail better seen on the CT abd omen pelvis. Right kidney: Normal. Hydronephrosis: None. Size: 10.0 cm x 4.7 cm x 4.5 cm. Abdominal aorta and IVC Visualized portions are normal. Ascites: None. US/US abdomen limited [id number] IMPRESSION: 1. Pancreatitis with pancreatic pseudocysts. Pancreatic pseudocysts detail on the concurrent CT abdomen pelvis. 2. Small amount of sludge in the gallbladder otherwise normal. Normal common b ile duct. 3. Mild hepatomegaly. 4. No hydronephrosis in RIGHT kidney.
--- NOTE | 2022-09-16 15:10 | PM.HP ---
Providers/Chief Complaint Chief Complaint: abd pain History of Present Illness Raquel Govea is a 36 year old female with past medical history of recurrent pancreatitis with most recent admission last month, alcohol abuse with 1 pint of vodka daily with last consumption over a month ago, portal vein thrombosis which has since then resolved and is not on anticoagulation, alcohol withdrawal seizures presented to the ER because of abdominal pain which started again 3 days ago getting worse overnight with nausea and some vomiting. As per patient she has been on soft diet since last discharge. She was not able to keep anything down because of uncontrollable pain she came to the ER today. Review of Systems General: Reports: 10 or more systems reviewed and unremarkable except in HPI and below Const: Denies: fever(s), chills, body aches, change in appetite, change in weight, malaise, night sweats, diaphoresis, change in sleep pattern, daytime sleepiness or snoring Eyes: Denies: change in vision, blurry vision, photophobia, eye discomfort or eye discharge ENMT: Denies: throat pain, enlarged tonsils, hoarseness, mouth pain, oral sores, dry mouth, tinnitus, nasal congestion or post nasal drip Card: Denies: chest pain, palpitations, irregular heart rhythm, edema, swelling of feet/ankles, lightheadedness, syncope, pre-syncope, dyspnea on exertion, orthopnea, leg pain with exertion or acrocyanosis Resp: Denies: dyspnea, productive cough, non-productive cough, wheezing, stridor, pain on inspiration, change in phlegm color, hemoptysis or chest congestion GI: Denies: abdominal pain, nausea, vomiting, hematemesis, coffee ground emesis, dysphagia, heartburn, diarrhea, constipation, bloating, GI cramping, change in bowel habits, pain on defecation, hematochezia or melena : Denies: flank pain, dysuria, urinary frequency, urinary urgency, urinary hesitancy, nocturia or hematuria Musc: Denies: neck pain, back pain, extremity pain, joint pain, joint swelling, joint redness, joint stiffness or limited range of motion Neuro: Denies: headache(s), numbness in extremities, weakness in extremities, sensory changes, lack of coordination, difficulty walking, frequent falls, dizziness, vertigo, confusion, Slurred speech present, difficulty communicating thoughts or seizure-like activity Psych: Denies: anxiety, depression, mood swings, panic attacks, hopelessness or irritability Endo: Denies: polyuria, polydipsia, tired all the time, cold intolerance, excessive sweating, flushing or heat intolerance Tho/Lymph: Denies: easy bruising or easy bleeding All/Imm: Denies: tongue swelling, facial swelling or acute wheezing Medications/Allergies Home Medications Medication Instructions Recorded Confirmed Last Taken Type multivitamin with folic acid 400 1 tab PO DAILY #30 tabs 11/12/21 09/16/22 Unknown Rx mcg tablet (Thera) thiamine mononitrate (vit B1) 100 100 mg PO DAILY #30 tabs 11/12/21 09/16/22 Unknown Rx mg tablet (Vitamin B-1 (mononitrate)) pantoprazole 40 mg tablet,delayed 40 mg PO DAILY 4 weeks #30 tabs 09/03/22 09/16/22 Unknown Rx release (Protonix) ondansetron 4 mg disintegrating 4 mg PO Q8H PRN Nausea 09/16/22 09/16/22 Unknown History tablet Allergies Allergy/AdvReac Type Severity Reaction Status Date / Time No Known Allergies Allergy Verified 09/16/22 11:14 PFSH Acute PFSH: Medical History Acute alcoholic pancreatitis Alcohol abuse Alcohol withdrawal seizure Portal vein thrombosis Thrombocytopenia Surgical History No pertinent past surgical history Family History Brother Liver failure Social History Smoking and tobacco status: never smoked Alcohol intake: current Alcohol intake frequency: few times a month Alcohol type: hard liquor Household members: significant other Housing: House 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, [employer]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 Reproductive History: Date of last menstrual period: 11/07/21 Vitals/I&O/Wt Last Vital Signs Temp 97.8 F 09/16/22 09:49 Pulse 100 09/16/22 09:49 Resp 18 09/16/22 09:49 BP 123/88 09/16/22 14:30 Pulse Ox 96 09/16/22 14:30 O2 Del Method 09/16/22 09:49 09/16/22 09/16/22 09/16/22 06:59 14:59 22:59 Intake Total 1000 / 1000 Balance 1000 / 1000 Weight last 48 hrs Weight 53.07 kg Physical Exam Narrative: General: No acute distress, AO x3 HEENT: PERRLA, pupils bilaterally equal and reactive Chest: Normal vesicular breath sounds, no added sounds, equal good air entry bilaterally CVS: S1-S2 regular, no murmurs, no tachycardia, no gallops, no rubs Abdomen: Soft, nontender, no organomegaly, bowel sounds present Neuro: No focal deficits, no facial deformity, AO x3, power 5/5 in all limbs Data 09/16/22 11:21 09/16/22 11:21 A&P Assessment and plan (1) Pancreatitis: Qualifiers: Acute pancreatitis complication: unspecified Chronicity: acute Pancreatitis type: alcohol induced Qualified Code(s): K85.20 - Alcohol induced acute pancreatitis without necrosis or infection (2) High anion gap metabolic acidosis: Most likely secondary to dehydration. Patient does not have history of diabetes. DKA unlikely as glucose is within normal limits. Most likely from starvation ketosis. (3) Dehydration: Plan Pancreatitis: Recurrent. In past has history of alcoholic pancreatitis. CT abdomen pelvis shows pancreatitis but also showed dilated pancreatic duct. Check abdominal ultrasound to rule out gallstones. If ultrasound abdomen concerning for gallstones will go for MRCP. Blood alcohol level negative. Treat conservatively. NPO. Normal saline at 100 cc/h. Protonix daily Zofran as needed. Dilaudid 0.2 mg every 6 hours if needed for pain control. History of alcohol abuse: As per patient last alcohol use over 1 month ago. Will continue to monitor. Full code. Heparin 5000 every 12 hourly. Attestations Medical Necessity Statement*: Admission for more than 2 midnights for management of pancreatitis leading to dehydration and high gap metabolic acidosis requiring conservative treatment and IV fluid resuscitation. Time Spent in Patient Care: Greater than 35 minutes Coding Level of Care Code Acute Code for [facility] Diagnoses Pancreatitis K85.20 Acute pancreatitis complication: unspecified Chronicity: acute Pancreatitis type: alcohol induced High anion gap metabolic acidosis E87.29 Dehydration E86.0
--- NOTE | 2022-09-16 16:13 | PC.NURSE ---
jaden levi took report
[2022-09-16] MEDS: sodium chloride 0.9% 1,000 ML 150 ML IV (17:31)
[2022-09-16] MEDS: dextrose 5%-sod chloride 0.9% 1,000 ML 100 ML IV (18:23)
[2022-09-16] MEDS: pantoprazole 40 mg SDV IVP (18:23)
[2022-09-16] MEDS: heparin 5,000 unit/mL INJ 1 mL 5000 UNIT SUBCUT (18:24)
[2022-09-16] MEDS: HYDROmorphone 1 mg/mL INJ 1 mL 0.2 MG IVP (18:24)
[2022-09-17] VITALS (12 sets, daily range): BP systolic 127–148; BP diastolic 80–86; PULSE 62–85; RESP 16–19; TEMP 36.5–37; O2SAT 96–97
[2022-09-17] MEDS: HYDROmorphone 1 mg/mL INJ 1 mL 0.2 MG IVP (00:33)
[2022-09-17] MEDS: heparin 5,000 unit/mL INJ 1 mL 5000 UNIT SUBCUT ×3 (01:10→18:41)
[2022-09-17] MEDS: dextrose 5%-sod chloride 0.9% 1,000 ML 100 ML IV ×3 (01:18→20:46)
--- NOTE | 2022-09-17 01:59 | PC.NURSE ---
pt continue to c/o pain and last dose of pain med not effective, Dr. Santiago notified and new order received foe hydromorphone 0.5 mg Q4H PRN, may give first dose now
[2022-09-17] MEDS: HYDROmorphone 1 mg/mL INJ 1 mL 0.5 MG IVP ×6 (02:05→23:29)
[2022-09-17 05:59] LABS: Basophils % 0.6 %; Eosinophils # 0.5 10^3/uL (0.0-0.8); Eosinophils % 8.6 %; Hematocrit 30.7 % (37.0-47.0); Lymphocytes # 1.2 10^3/uL (0.8-4.8); Lymphocytes % 22.7 %; Mean Corpuscular HGB Conc 29.3 g/dL (30.0-36.0); Mean Corpuscular Hemoglobin 28.8 pg (28.0-34.0); Mean Corpuscular Volume 98.1 fl (81-99); Mean Platelet Volume 10.7 fL (7.4-10.4); Monocytes # 0.3 10^3/uL (0.2-0.9); Monocytes % 4.8 %; Neutrophils # 3.38 10^3/uL (1.8-7.7); Neutrophils % 62.9 %; Nucleated Red Blood Cells % 0 %; Platelet Count 278 10^3/cmm (130-400); Red Blood Count 3.13 10^6/uL (4.1-5.3); Red Cell Distribution Width 16.9 % (12.1-15.1); White Blood Count 5.4 10^3/uL (4.0-10.0)
[2022-09-17 07:16] LABS: Alanine Aminotransferase < 5 U/L (0-33); Albumin Level 3.3 g/dL (3.5-5.2); Alkaline Phosphatase 78 U/L (35-105); Anion Gap 11.7 (5-19); Aspartate Amino Transferase 11 U/L (0-32); Blood Urea Nitrogen 6 mg/dL (6-20); Calcium 8.9 mg/dL (8.5-10.5); Carbon Dioxide 24 mmol/L (22-29); Chloride 103 mmol/L (98-107); Globulin 3.6 g/dL (1.3-4.6); Glomerular Filtration Rate 250.3 mL/min (90-130); Glucose 131 mg/dL (65-115); Osmolality Calculated 279 mOsm/kg (285-295); Potassium 3.7 mmol/L (3.5-5.1); Sodium 135 mmol/L (136-145); Total Bilirubin 0.2 mg/dL (0.15-1.2); Total Protein 6.9 g/dL (6.6-8.7)
[2022-09-17] MEDS: thiamine 100 mg Tablet PO (08:57)
[2022-09-17] MEDS: ondansetron 2 mg/ML SDV 2 mL 4 MG IVP ×2 (11:17→21:11)
--- NOTE | 2022-09-17 12:29 | PC.CHAP ---
Pastoral Care Encounter/Spiritual Assessment Type of Contact [] Declined rn access visit [] Patient/Family/Request visit [] Outpatient visit [] Follow-up visit [] Physician referral [] Code/Alert [x] Routine visit [] Staff referral [] Actively dying [] Patient sleeping [] Family support [] [] Out of room [] Palliative care [] [] Receiving care in room [] Pre-surgical visit [] Trauma [] Long length of stay [] ICU visit [] Other: Relational/Emotional Strength [] Patient feels connected with others/family/visitors/staff [] Distress [] Loneliness/isolation [] Abandonment Spirituality of Patient [x] Person of [place] [] Attends Jewish of their [place] x[] Believes in Prayer [] Reads Bible or Samaritan materials [] There are 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[] Prayer [x] Active listening [] Non-anxious presence [] Spiritual/emotional support [] Crisis/trauma care [] Spiritual counseling [] Bereavement support [] Provided bereavement packet [] Provided Bible/devotional materials [] Provided toy/stuffed animal, coloring book to patient or family member [] Provided Communion [] Anointing/Parachute [] Salvation xx[x] Completed spiritual assessment [] Other: Impact on Illness or Injury [] Angry [] Fearful [] Anxious [] Often cries [] Exhaustion [] Unable to work [] Unable to attend denominational [] Unable to walk/stand [] Unable to read [] Unable to drive [] Unable to eat/drink [] Unable to sleep [] Unable to be with family [] Patient intubated [] Other: Summary Time spent with patient 10 min
--- NOTE | 2022-09-17 15:25 | PM.PN ---
Subjective Subjective: Overnight patient continued to have abdominal pain. Required multiple doses of Dilaudid. Still complaining of nausea but no vomiting. Agreeable to start on laxatives today. On examination laying in position in bed. Vitals/I&O/Wt Last Vital Signs Temp 97.8 F 09/17/22 12:00 Pulse 64 09/17/22 12:00 Resp 16 09/17/22 08:00 BP 147/85 09/17/22 12:00 Pulse Ox 97 09/17/22 12:00 O2 Del Method 09/17/22 04:00 09/17/22 09/17/22 09/17/22 06:59 14:59 22:59 Intake Total 691.667 / 2691.667 1000 / 1000 Balance 691.667 / 2691.667 1000 / 1000 Weight last 48 hrs Weight 53.07 kg Physical Exam Narrative: General: No acute distress, AO x3 HEENT: PERRLA, pupils bilaterally equal and reactive Chest: Normal vesicular breath sounds, no added sounds, equal good air entry bilaterally CVS: S1-S2 regular, no murmurs, no tachycardia, no gallops, no rubs Abdomen: Soft, nontender, no organomegaly, bowel sounds present Neuro: No focal deficits, no facial deformity, AO x3, power 5/5 in all limbs Data 09/17/22 05:36 09/17/22 06:45 Micro: Microbiology 09/16/22 11:07 Urine Culture - Preliminary Urine,Clean Catch A&P Assessment and plan (1) Pancreatitis: Qualifiers: Acute pancreatitis complication: unspecified Chronicity: acute Pancreatitis type: alcohol induced Qualified Code(s): K85.20 - Alcohol induced acute pancreatitis without necrosis or infection (2) High anion gap metabolic acidosis: Resolved. Most likely secondary to dehydration. Patient does not have history of diabetes. DKA unlikely as glucose is within normal limits. Most likely from starvation ketosis. (3) Dehydration: Plan Pancreatitis: Recurrent. In past has history of alcoholic pancreatitis. CT abdomen pelvis shows pancreatitis but also showed dilated pancreatic duct. Check abdominal ultrasound to rule out gallstones. If ultrasound abdomen concerning for gallstones will go for MRCP. Blood alcohol level negative. Treat conservatively. N.p.o. with ice and chips D5 NS at 100 cc/h. Protonix daily Zofran as needed. Increased frequency and dose to Dilaudid 0.5 every 4 if needed for pain control. History of alcohol abuse: As per patient last alcohol use over 1 month ago. Will continue to monitor. Full code. Heparin 5000 every 12 hourly. Attestations Medical Necessity Statement*: Requires further hospitalization for management of pancreatitis in setting of nausea and vomiting, requiring IV pain medications Time Spent in Patient Care: Greater than 35 minutes Coding Level of Care Code Acute Code for [facility] Diagnoses Pancreatitis K85.20 Acute pancreatitis complication: unspecified Chronicity: acute Pancreatitis type: alcohol induced High anion gap metabolic acidosis E87.29 Dehydration E86.0
[2022-09-17] MEDS: pantoprazole 40 mg SDV IVP (18:41)
[2022-09-17] MEDS: lipase-protease-amylase Capsule 1 EACH PO (18:41)
[2022-09-18] VITALS (10 sets, daily range): BP systolic 109–155; BP diastolic 77–86; PULSE 64–84; RESP 16–18; TEMP 36.6–37; O2SAT 94–98
[2022-09-18] MEDS: heparin 5,000 unit/mL INJ 1 mL 5000 UNIT SUBCUT ×3 (01:21→17:57)
[2022-09-18] MEDS: HYDROmorphone 1 mg/mL INJ 1 mL 0.5 MG IVP ×4 (03:48→21:28)
[2022-09-18 06:00] LABS: Alanine Aminotransferase < 5 U/L (0-33); Albumin Level 3.1 g/dL (3.5-5.2); Alkaline Phosphatase 79 U/L (35-105); Anion Gap 11.1 (5-19); Aspartate Amino Transferase 11 U/L (0-32); Blood Urea Nitrogen 3 mg/dL (6-20); Calcium 9.1 mg/dL (8.5-10.5); Carbon Dioxide 27 mmol/L (22-29); Chloride 102 mmol/L (98-107); Globulin 3.7 g/dL (1.3-4.6); Glomerular Filtration Rate 250.3 mL/min (90-130); Glucose 112 mg/dL (65-115); Lipase 133 U/L (13-60); Osmolality Calculated 281 mOsm/kg (285-295); Potassium 3.1 mmol/L (3.5-5.1); Sodium 137 mmol/L (136-145); Total Bilirubin 0.2 mg/dL (0.15-1.2); Total Protein 6.8 g/dL (6.6-8.7)
[2022-09-18] MEDS: thiamine 100 mg Tablet PO (08:01)
[2022-09-18] MEDS: dextrose 5%-sod chloride 0.9% 1,000 ML 100 ML IV ×2 (08:01→19:56)
[2022-09-18] MEDS: lipase-protease-amylase Capsule 1 EACH PO ×3 (08:01→19:55)
--- NOTE | 2022-09-18 16:29 | P.PN_ITS ---
Subjective Subjective: Reports continued abdominal pain, however is improved. Nursing says that she is still asking for pain medicine about every 4 hours. She says that she was able to tolerate some ice chips through the night, and small amount of water. She has not had a bowel movement, but she is passing gas. She denies any trouble with voiding. Medications: Reviewed: Yes Vitals/I&O/Wt Last Vital Signs Temp 98.5 F 09/18/22 12:00 Pulse 65 09/18/22 12:00 Resp 16 09/18/22 12:29 BP 123/81 09/18/22 12:00 Pulse Ox 96 09/18/22 12:29 O2 Del Method 09/18/22 12:00 09/18/22 09/18/22 09/18/22 06:59 14:59 22:59 Intake Total 1120 / 3053.333 Balance 1120 / 3053.333 Weight last 48 hrs Weight 115 lb 4 oz Physical Exam Narrative: General: Cooperative patient in no apparent distress. Well developed. HEENT: Normocephalic, Atraumatic. External ears normal. Nasal passages patent without drainage. MMM. Heart: Regular rate and rhythm. Resp: Lungs clear to auscultation no respiratory distress, no use of accessory muscles. Abd: Soft, mild epigastric and right upper quadrant tenderness. Abdomen is non- distended. Bowel sounds are present. Extremities: No edema. Skin: No rash or lesions on exposed areas. Data 09/17/22 05:36 09/18/22 04:02 Micro: Microbiology 09/16/22 11:07 Urine Culture - Final Urine,Clean Catch A&P Assessment and plan (1) Pancreatitis: Qualifiers: Acute pancreatitis complication: unspecified Chronicity: acute Pancreatitis type: alcohol induced Qualified Code(s): K85.20 - Alcohol induced acute pancreatitis without necrosis or infection (2) Dehydration: Plan 36-year-old female admitted for recurrent pancreatitis due to chronic alcohol use. - Continue close inpatient monitoring. - Will advance diet to clear liquids and meds only. Can progress if she is able to tolerate this well. We will switch to oral hydrocodone every 6 hours. Can continue IV pain medication every 6 hours, with more emphasis on oral pain medications. - CT abdomen pelvis shows pancreatitis but also showed dilated pancreatic duct. - Check abdominal ultrasound to rule out gallstones. Ultrasound did not identify any gallstones, but did demonstrate gallbladder sludge and pancreatic pseudocyst. - Blood alcohol level negative on this admission. Discussed abstinence from alcohol given her current medical indication. - Continue IV fluids with D5 NS at 100 cc/h. - Protonix daily - Zofran as needed. CODE STATUS: Full code. DVT PPx: Heparin 5000 every 12 hourly. GI PPx: Protonix IVF: D5NS at 100ml/hr Diet: Clear liquids, ADAT. Disposition: Home when pain is controlled and diet able to maintain oral intake . Attestations Medical Necessity Statement*: Patient will need continued inpatient monitoring for recurrent pancreatitis, decreased oral intake, pain control, and nausea. Time Spent in Patient Care: 16 - 35 minutes Coding Level of Care Code Acute Code for [facility] Diagnoses Pancreatitis K85.20 Acute pancreatitis complication: unspecified Chronicity: acute Pancreatitis type: alcohol induced Dehydration E86.0
[2022-09-18] MEDS: HYDROcodone-acetaminophen 5-325 mg Tablet 1 TAB PO (17:55)
[2022-09-18] MEDS: pantoprazole 40 mg SDV IVP (17:56)
[2022-09-19 00:12] VITALS: BP 109/71; PULSE 64; RESP 16; TEMP 36.7; O2SAT 96
[2022-09-19] MEDS: HYDROcodone-acetaminophen 5-325 mg Tablet 1 TAB PO ×3 (01:24→14:42)
[2022-09-19] MEDS: heparin 5,000 unit/mL INJ 1 mL 5000 UNIT SUBCUT (01:25)
[2022-09-19 04:31] VITALS: BP 114/72; PULSE 67; RESP 16; TEMP 36.7; O2SAT 94
[2022-09-19] MEDS: dextrose 5%-sod chloride 0.9% 1,000 ML 100 ML IV (06:56)
[2022-09-19 08:00] VITALS: BP 120/74; PULSE 71; RESP 16; TEMP 36.6; O2SAT 96
[2022-09-19] MEDS: lipase-protease-amylase Capsule 1 EACH PO ×2 (09:33→13:28)
[2022-09-19] MEDS: thiamine 100 mg Tablet PO (09:33)
[2022-09-19 11:44] VITALS: BP 132/75; PULSE 75; RESP 16; TEMP 36.6; O2SAT 94
--- NOTE | 2022-09-19 14:11 | P.PN_ITS ---
Subjective Subjective: Reports pain is well controlled today. Has not had to request IV pain medication since last night. Has tolerated clear liquid diet well. No further emesis or nausea. Wants to try eating something today. Denies problems with stooling or voiding. Vitals/I&O/Wt Last Vital Signs Temp 97.9 F 09/19/22 11:44 Pulse 75 09/19/22 11:44 Resp 16 09/19/22 11:44 BP 132/75 09/19/22 11:44 Pulse Ox 94 09/19/22 11:44 O2 Del Method 09/19/22 11:44 09/18/22 09/19/22 09/19/22 22:59 06:59 14:59 Intake Total 1100 / 1100 1120 / 2220 600 / 600 Balance 1100 / 1100 1120 / 2220 600 / 600 Weight last 48 hrs Weight 118 lb 9 oz Weight 115 lb 4 oz Physical Exam Narrative: General: Cooperative patient in no apparent distress. Well developed. HEENT: Normocephalic, Atraumatic. External ears normal. Nasal passages patent without drainage. MMM. Heart: Regular rate and rhythm. Resp: Lungs clear to auscultation no respiratory distress, no use of accessory muscles. Abd: Soft, non-tender, non-distended. Bowel sounds are present. Extremities: No edema. Skin: No rash or lesions on exposed areas. Data 09/17/22 05:36 09/18/22 04:02 Micro: Microbiology 09/16/22 11:07 Urine Culture - Final Urine,Clean Catch A&P Assessment and plan (1) Pancreatitis: Qualifiers: Acute pancreatitis complication: unspecified Chronicity: acute Pancreatitis type: alcohol induced Qualified Code(s): K85.20 - Alcohol induced acute pancreatitis without necrosis or infection (2) Dehydration: Plan 36-year-old female admitted for recurrent pancreatitis due to chronic alcohol use. - Will advance diet today to regular. If she is able to eat and drink without s ignificant increase in her abdominal pain, will discharge this evening. - D/C IV pain medication as she is able to take oral pain medications without difficulties. - D/C IVF's today. may saline lock IV at this time. - Recommend that she follow up with me in clinic this week. - Recommended that she abstain from EtOH use to avoid further complications. - Can send her with oral pain medications and anti-emetics if she is able to discharge home. CODE STATUS: Full code. DVT PPx: Heparin 5000 every 12 hourly. GI PPx: Protonix IVF: none Diet: Regular Disposition: Home when pain is controlled and diet able to maintain oral intake. Attestations Medical Necessity Statement*: Patient will need continued inpatient monitoring for recurrent pancreatitis, decreased oral intake, pain control, and nausea. Time Spent in Patient Care: 16 - 35 minutes Coding Level of Care Code Acute Code for [facility] Diagnoses Pancreatitis K85.20 Acute pancreatitis complication: unspecified Chronicity: acute Pancreatitis type: alcohol induced Dehydration E86.0
--- NOTE | 2022-09-19 16:43 | PM.DCS ---
Discharge Providers Date of Admission: 09/16/22 15:52 Date of Discharge: September 19, 2022 Attending Provider at Admission: Sourav Valladares MD Attending Provider at Discharge: Thanh Dubois DO Primary Care Provider: Thanh Dubois DO Diagnoses at Discharge Discharge Diagnosis (1) Pancreatitis: Status: Acute Qualifiers: Acute pancreatitis complication: unspecified Chronicity: acute Pancreatitis type: alcohol induced Qualified Code(s): K85.20 - Alcohol induced acute pancreatitis without necrosis or infection (2) Dehydration: Status: Acute Reason for Visit Reason for Visit: abd pain Brief History: Admitted with acute pancreatitis. History of alcoholism with recurrent pancreatitis. Upon admission was noted to be dehydrated with elevated lipase and multiple electrolyte deficiencies. Hospital Course Hospital Course She was admitted for IVF's, pain control and supportive treatments. Initially requiring IV pain medication and NPO diet. Was able to tolerate sips and chips after 1-2 days. Nausea improved with rehydration and electrolyte correction. She was transitioned to oral pain medication and clear liquids, which was tolerated without pain, N/V. She was monitored through dietary advancement and once oral intake with regular diet and oral medications were tolerated without symptoms, she was discharged to home, with PCP follow up within one week. Physical Exam Narrative: General: Cooperative patient in no apparent distress. Well developed. HEENT: Normocephalic, Atraumatic. External ears normal. Nasal passages patent without drainage. MMM. Heart: Regular rate and rhythm. Resp: Lungs clear to auscultation no respiratory distress, no use of accessory muscles. Abd: Soft, non-tender, non-distended. Bowel sounds are present. Extremities: No edema. Skin: No rash or lesions on exposed areas. Discharge Data Studies Completed and Pending Completed Studies During Hospitalization Category Date Time Status CT abdomen pelvis w con* [id number] Stat Cat Scan 09/16/22 13:30 Completed US abdomen limited [id number] Stat Ultrasound 09/16/22 14:50 Completed Radiology Impressions Abdomen/Pelvis CT 09/16/22 13:30 IMPRESSION: 1. Evidence of acute pancreatitis with pancreatic duct dilatation. 2. Interval increase in the pseudocysts compared to August 24, 2022 described above with the largest pseudocyst measuring 4 to 5 cm. 3. Coarse patchy infiltrates in the lung bases. Abdomen Ultrasound 09/16/22 14:50 IMPRESSION: 1. Pancreatitis with pancreatic pseudocysts. Pancreatic pseudocysts detail on the concurrent CT abdomen pelvis. 2. Small amount of sludge in the gallbladder otherwise normal. Normal common bile duct. 3. Mild hepatomegaly. 4. No hydronephrosis in RIGHT kidney. Laboratory Results WBC 5.4 10^3/uL (4.0-10.0) 09/17/22 05:36 RBC 3.13 10^6/uL (4.1-5.3) L 09/17/22 05:36 Hgb 9.0 g/dL (11.5-15.3) L 09/17/22 05:36 Hct 30.7 % (37.0-47.0) L 09/17/22 05:36 MCV 98.1 fl (81-99) 09/17/22 05:36 MCH 28.8 pg (28.0-34.0) 09/17/22 05:36 MCHC 29.3 g/dL (30.0-36.0) L 09/17/22 05:36 RDW 16.9 % (12.1-15.1) H 09/17/22 05:36 Plt Count 278 10^3/cmm (130-400) 09/17/22 05:36 MPV 10.7 fL (7.4-10.4) H 09/17/22 05:36 Neut % (Auto) 62.9 % 09/17/22 05:36 Lymph % (Auto) 22.7 % 09/17/22 05:36 [place] % (Auto) 4.8 % 09/17/22 05:36 Eos % (Auto) 8.6 % 09/17/22 05:36 Baso % (Auto) 0.6 % 09/17/22 05:36 Neut # (Auto) 3.38 10^3/uL (1.8-7.7) 09/17/22 05:36 Lymph # (Auto) 1.2 10^3/uL (0.8-4.8) 09/17/22 05:36 [place] # (Auto) 0.3 10^3/uL (0.2-0.9) 09/17/22 05:36 Eos # (Auto) 0.5 10^3/uL (0.0-0.8) 09/17/22 05:36 Baso # (Auto) 0.0 10^3/uL (0.0-0.1) 09/17/22 05:36 Nucleated RBC % (auto) 0 % 09/17/22 05:36 Nucleated RBCs # 0.0 /100WBC 09/17/22 05:36 Sodium 137 mmol/L (136-145) 09/18/22 04:02 Potassium 3.1 mmol/L (3.5-5.1) L 09/18/22 04:02 Chloride 102 mmol/L (98-107) 09/18/22 04:02 Carbon Dioxide 27 mmol/L (22-29) 09/18/22 04:02 Anion Gap 11.1 (5-19) 09/18/22 04:02 BUN 3 mg/dL (6-20) L 09/18/22 04:02 Creatinine 0.3 mg/dL (0.5-0.9) L 09/18/22 04:02 GFR Calculation 250.3 mL/min (90-130) H 09/18/22 04:02 Glucose 112 mg/dL (65-115) 09/18/22 04:02 Calculated Osmolality 281 mOsm/kg (285-295) L 09/18/22 04:02 Lactic Acid 1.7 mmol/L (0.5-2.2) 09/16/22 11:21 Calcium 9.1 mg/dL (8.5-10.5) 09/18/22 04:02 Magnesium Cancelled 09/17/22 05:36 Total Bilirubin 0.2 mg/dL (0.15-1.2) 09/18/22 04:02 AST 11 U/L (0-32) 09/18/22 04:02 ALT < 5 U/L (0-33) 09/18/22 04:02 Alkaline Phosphatase 79 U/L (35-105) 09/18/22 04:02 C-Reactive Protein 68.3 mg/L (0.0-4.9) H 09/16/22 11:21 Total Protein 6.8 g/dL (6.6-8.7) 09/18/22 04:02 Albumin 3.1 g/dL (3.5-5.2) L 09/18/22 04:02 Globulin 3.7 g/dL (1.3-4.6) 09/18/22 04:02 Lipase 133 U/L (13-60) H 09/18/22 04:02 HCG, Qual Negative (Negative) 09/16/22 11:21 Urine Color [place] (Yellow) 09/16/22 11:07 Urine Appearance Cloudy (CLEAR) A 09/16/22 11:07 Urine pH 5 (5-7) 09/16/22 11:07 Ur Specific [place] 1.025 (1.005-1.030) 09/16/22 11:07 Urine Protein 1+ (Negative) H 09/16/22 11:07 Urine Glucose (UA) Norm (Normal) 09/16/22 11:07 Urine Ketones 1+ (Negative) H 09/16/22 11:07 Urine Blood 2+ (Negative) H 09/16/22 11:07 Urine Nitrate Negative (Negative) 09/16/22 11:07 Urine Bilirubin 2+ (Negative) H 09/16/22 11:07 Urine Urobilinogen 4 mg/dL (Negative) H 09/16/22 11:07 Ur Leukocyte Esterase 1+ (Negative) H 09/16/22 11:07 Urine RBC 0-4 /hpf (0-2) H 09/16/22 11:07 Urine WBC 0-4 /hpf (0-5) H 09/16/22 11:07 Ur Squamous Epith Cells 5-10 /hpf (0-5) H 09/16/22 11:07 Amorphous Sediment Not Reportable 09/16/22 11:07 Urine Bacteria 2+ /hpf (NONE) H 09/16/22 11:07 Urine Mucus 3+ /hpf 09/16/22 11:07 Vitals Last Vital Signs Temp 97.9 F 09/19/22 11:44 Pulse 75 09/19/22 11:44 Resp 16 09/19/22 11:44 BP 132/75 09/19/22 11:44 Pulse Ox 94 09/19/22 11:44 O2 Del Method 09/19/22 11:44 Discharge Plan Discharge Patient Disposition: Home Condition: Stable Prescriptions: New hydrocodone-acetaminophen 5-325 mg Tablet 1 tab PO Q6H PRN (Reason: Moderate Pain) Qty: 14 0RF Zenpep 5,000-17,000- 24,000 unit Capsule,Delayed Release(Dr/Ec) 1 cap PO TIDWM Qty: 90 0RF Continued thiamine mononitrate (vit B1) [Vitamin B-1 (mononitrate)] 100 mg Tablet 100 mg PO DAILY Qty: 30 0RF multivitamin with folic acid [Thera] 400 mcg Tablet 1 tab PO DAILY Qty: 30 0RF ondansetron 4 mg tablet,disintegrating 4 mg PO Q8H PRN (Reason: Nausea) Qty: 20 0RF pantoprazole [Protonix] 40 mg tablet,delayed release (DR/EC) 40 mg PO DAILY 28 Days Qty: 30 0RF Discharge Orders: Discharge Order (Routine); Ordered 09/19/22 Ordered By: Thanh Dubois Referrals: Thanh Dubois, [Physician] - 1-3 days Discharge Diet: Advance as tolerated Discharge Activity: Resume usual activity Patient Instructions: Hydrocodone/Acetaminophen (By mouth), Pancrelipase (By mouth), Pancreatitis (DC), Opioid Safety Discharge Attestations Time Spent in Discharge Care*: less than 30 min Specific Discharge Activities: educating patient, documenting/other paperwork and evaluating patient/reviewing data Status at Discharge: Cognitive status at discharge: cognitively intact, Behavioral status at discharge: cooperative, Quality Metrics Clinical Quality Measures [ No reported AMI, CVA or VTE this stay] Coding Level of Care Code Acute Ch[facility] DC note Diagnoses Pancreatitis K85.20 Acute pancreatitis complication: unspecified Chronicity: acute Pancreatitis type: alcohol induced Dehydration E86.0
== END 2022-09-19 17:11 | disposition home or self-care (01) | DRG 439 ==
LOC: ER 15:12 → MEDSURG 16:04
PROVIDERS: Nurse Practitioner Family; Admitting Provider Student in an Organized Health Care Education/Training Program; Emergency Provider Family Medicine; Visit Provider Family Medicine
DX: K85.20 Alcohol induced acute pancreatitis without necrosis or infection (principal); E87.20 Acidosis, unspecified; F10.10 Alcohol abuse, uncomplicated; Y90.9 Presence of alcohol in blood, level not specified; E86.0 Dehydration
CPT/HCPCS: 36415; 74177; 76705; 80053; 81001; 83605; 83690; 84703; 85025; 86140; 87086; 96372; 96374; 96375; 96376; 99285; C9113; J1170; J1644; J2270; J2405; J7030; J7042; Q9967

== ENCOUNTER 2023-11-28 07:02 | Emergency (ER) | payer MEDICAID, SELFPAY ==
[2023-11-28] VITALS (23 sets, daily range): BP systolic 85–104; BP diastolic 48–70; PULSE 93–119; RESP 12–31; TEMP 36.8–37.1; O2SAT 92–100
--- NOTE | 2023-11-28 07:17 | ECG_ITS ---
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 Measurements Intervals [place] Rate: 107 P: 67 ME: 161 QRS: 53 QRSD: 87 T: 57 QT: 323 QTc: 432 Interpretive Statements SINUS TACHYCARDIA LOW QRS VOLTAGE IN PRECORDIAL LEADS [QRS DEFLECTION < 1.0 mV IN CHEST LEADS] NONSPECIFIC T-WAVE ABNORMALITY No previous ECG available for comparison Electronically Signed On 11-28-2023 11:25:48 CDT by Chano Lipscomb M.D. [id number]
--- NOTE | 2023-11-28 07:17 | XR_ITS ---
WS: [id number] Exam: XR chest 1V portable [id number] Date/Time of Exam: 11/28/2023 7:47 AM Reason For Exam: dyspnea/cough Comparison 11/08/2022. Findings: The lungs are clear and fully expanded. Costophrenic angles are sharp. No infiltrates. Bronchovascula r relief appears normal. Cardiac silhouette is unremarkable. Bony elements are intact. IMPRESSION: Unremarkable chest radiograph.
--- NOTE | 2023-11-28 07:20 | ED_ITS ---
HPI - Weakness 2 General: Chief complaint: Weakness Stated complaint: weakness Time Seen by Provider: 11/28/23 07:16 Source: patient Mode of arrival: ambulatory History of Present Illness: 38 yo female presents emergency room com plaining abdominal pain hematemesis began this morning. She had several episodes of vomiting yesterday and at least 2 episodes of hematemesis this morning. She denies any fever sweats or chills. Patient has a history of alcohol abuse. She states she drank half a beer yesterday but otherwise had not been drinking for the last couple of months. MD Complaint: generalized weakness Onset (ago): day(s) (1) Associated symptoms: Reports decreased appetite, myalgias, nausea and vomiting; Denies chest pain, chills, confusion, melena, diaphoresis, dysuria, easy bruising, fever(s), headache(s), rash, short of breath or syncope Review of Systems 2 Const: Denies: fever(s), chills or diaphoresis Card: Denies: chest pain or syncope Resp: Denies: dyspnea GI: Reports: abdominal pain, nausea, vomiting and hematemesis; Denies: melena : Denies: dysuria, urinary frequency or urinary urgency Musc: Denies: neck pain or back pain Skin/Breast: Denies: rash Neuro: Denies: headache(s) or confusion Tho/Lymph: Denies: easy bruising PFSH ED 2 PFSH: Medical History Alcohol withdrawal seizure Acute alcoholic pancreatitis Alcohol abuse Thrombocytopenia Portal vein thrombosis Surgical History No pertinent past surgical history Family History Brother Liver failure Social History Smoking and tobacco/nicotine status: never used tobacco/nicotine Alcohol intake: current Alcohol intake frequency: few times a month Alcohol type: hard liquor Substance/Drug Use: current Household members: significant other Housing: House 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, [employer] Physical Exam 2 Const: COMMON NORMALS: no acute distress GENERAL APPEARANCE: cooperative and comfortable ORIENTATION/CONSCIOUSNESS: Yes awake, Yes oriented to person, Yes oriented to place and Yes oriented to time HENMT: COMMON NORMALS: normocephalic, atraumatic and hearing grossly normal bilaterally HEAD & SCALP: normocephalic and atraumatic Resp: COMMON NORMALS: normal respiratory effort, No retractions, No use of accessory muscles and clear to auscultation bilaterally AUSCULTATION: clear to auscultation bilaterally Cardio: COMMON NORMALS: No murmurs present (Cardio) RATE: tachycardic GI: COMMON NORMALS: Soft to palpation and No hepatosplenomegaly present A USCULTATION: Yes normoactive bowel sounds PALPATION: Yes Soft to palpation, No Tenderness to palpation present (GI), No Guarding due to palpation present (GI) and Yes No hepatosplenomegaly present Extremity: COMMON NORMALS: normal to inspection, capillary refill normal, no clubbing, cyanosis or edema, no calf tenderness and no pedal edema Neuro: SENSORIUM/ORIENTATION: Yes oriented to person, Yes oriented to place and Yes oriented to time Skin: COMMON NORMALS: no rashes or lesions noted GENERAL SKIN EXAM: no rashes or lesions noted Procedures Central Line Placement Right SC: Time Out Performed: Yes Patient Placed on Monitor/Pulse Ox: Yes MD Prep: mask, gown and gloves Central Line Prep: Chlorhexidine scrub Local Anesthetic: lidocaine 1% Amount of anesthesia used (mL): 5 Ultrasound Used for Placement: Yes Central Line Lumen Inserted: triple Post Procedure: sutured in place, good blood return, all ports aspirated, flushed, capped and sterile dressing applied Post Procedure X-Ray: tip of catheter in good position Patient Tolerated Procedure: well Complications: none Additional Comments: Initial chest x-ray shows central line tip well inside the atrium. The line was retracted 3 cm repeat x-ray shows it within the right atrium properly positioned Course 2 Vital Signs: Vital signs: Vital Signs Temperature 98.8 F 11/28/23 09:22 Pulse Rate 100 11/28/23 10:40 Respiratory Rate 13 11/28/23 10:40 Blood Pressure 96/64 11/28/23 10:45 Pulse Oximetry 99 11/28/23 10:40 MDM - Weakness Medical Decision Making Patient has active upper GI bleed with a history of alcoholic liver cirrhosis portal vein thrombosis. She is previously on Eliquis. Because of upper GI bleed. She has no documented esophageal varices but on the CT there is noticeable splenic varices. Suspect she most likely does have esophageal varices was a large amount of blood in the stomach appears to be clotted. Hemoglobin is 5 3 patient was given a single unit of emergency release blood and then a typed crossed unit of blood as well as a unit of FFP. Discussed with hospitalist we both agree agree that the patient should be transferred where GI and higher level of blood banking is available. Medical Records I reviewed the patient's medical records. Lab Data I reviewed the patient's lab results. 11/28/23 07:51 11/28/23 06:45 Laboratory Results WBC 8.20 10^3/uL (3.29-11.43) 11/28/23 07:51 Corrected WBC Cancelled 11/28/23 06:45 RBC 1.66 10^6/uL (3.85-5.65) L 11/28/23 07:51 Hgb 5.30 g/dL (11.27-16.99) L* 11/28/23 07:51 Hct 17.8 % (36-47) L* 11/28/23 07:51 MCV 107.2 fl (85-98) H 11/28/23 07:51 MCH 31.9 pg (27-33) 11/28/23 07:51 MCHC 29.8 g/dL (30-55) L 11/28/23 07:51 RDW 17.6 % (12.1-15.1) H 11/28/23 07:51 Plt Count 226 10^3/cmm (157-399) 11/28/23 07:51 MPV 11.4 fL (7.4-10.4) H 11/28/23 07:51 Gran % Cancelled 11/28/23 06:45 Neut % (Auto) 79.9 % 11/28/23 07:51 Lymph % (Auto) 12.9 % 11/28/23 07:51 [place] % (Auto) 6.6 % 11/28/23 07:51 Eos % (Auto) 0.0 % 11/28/23 07:51 Baso % (Auto) 0.1 % 11/28/23 07:51 Neut # (Auto) 6.55 10^3/uL (1.8-7.7) 11/28/23 07:51 Lymph # (Auto) 1.1 10^3/uL (0.8-4.8) 11/28/23 07:51 [place] # (Auto) 0.5 10^3/uL (0.2-0.9) 11/28/23 07:51 Eos # (Auto) 0.0 10^3/uL (0.0-0.8) 11/28/23 07:51 Baso # (Auto) 0.0 10^3/uL (0.0-0.1) 11/28/23 07:51 Absolute Gran (auto) Cancelled 11/28/23 06:45 Nucleated RBC % (auto) 0 % 11/28/23 07:51 Nucleated RBCs # 0.0 /100WBC 11/28/23 07:51 PT 16.60 SECONDS (12.1-14.9) H 11/28/23 06:45 INR 1.30 (0.8-1.2) H 11/28/23 06:45 APTT 22.7 SECONDS (23.9-36.7) L 11/28/23 06:45 Sodium 135 mmol/L (136-145) L 11/28/23 06:45 Potassium 3.7 mmol/L (3.5-5.1) 11/28/23 06:45 Chloride 101 mmol/L (98-107) 11/28/23 06:45 Carbon Dioxide 22 mmol/L (22-29) 11/28/23 06:45 Anion Gap 15.7 (5-19) 11/28/23 06:45 BUN 14 mg/dL (6-20) 11/28/23 06:45 Creatinine 0.3 mg/dL (0.5-0.9) L 11/28/23 06:45 GFR Calculation 247.7 mL/min (90-130) H 11/28/23 06:45 Glucose 136 mg/dL (65-115) H 11/28/23 06:45 Calculated Osmolality 283 mOsm/kg (285-295) L 11/28/23 06:45 Calcium 7.7 mg/dL (8.5-10.5) L 11/28/23 06:45 Total Bilirubin 1.5 mg/dL (0.15-1.2) H 11/28/23 06:45 AST 42 U/L (0-32) H 11/28/23 06:45 ALT 15 U/L (0-33) 11/28/23 06:45 Alkaline Phosphatase 251 U/L (35-105) H 11/28/23 06:45 Ammonia 13 umol/L (11-51) 11/28/23 07:51 Total Protein 5.7 g/dL (6.6-8.7) L 11/28/23 06:45 Albumin 2.5 g/dL (3.5-5.2) L 11/28/23 06:45 Globulin 3.2 g/dL (1.3-4.6) 11/28/23 06:45 Lipase 284 U/L (13-60) H 11/28/23 06:45 HCG, Qual Negative (Negative) 11/28/23 06:45 Urine Color Yellow (Yellow) 11/28/23 09:12 Urine Appearance Hazy (CLEAR) A 11/28/23 09:12 Urine pH 6.5 (5-7) 11/28/23 09:12 Ur Specific [place] 1.005 (1.005-1.030) 11/28/23 09:12 Urine Protein Trace (Negative) 11/28/23 09:12 Urine Glucose (UA) Norm (Normal) 11/28/23 09:12 Urine Ketones Negative (Negative) 11/28/23 09:12 Urine Blood Neg (Negative) 11/28/23 09:12 Urine Nitrate Negative (Negative) 11/28/23 09:12 Urine Bilirubin Neg (Negative) 11/28/23 09:12 Urine Urobilinogen Neg mg/dL (Negative) 11/28/23 09:12 Ur Leukocyte Esterase Negative (Negative) 11/28/23 09:12 Urine RBC Rare /hpf (0-2) 11/28/23 09:12 Urine WBC 0-4 /hpf (0-5) H 11/28/23 09:12 Ur Squamous Epith Cells 10-15 /hpf (0-5) H 11/28/23 09:12 Amorphous Sediment Not Reportable 11/28/23 09:12 Urine Bacteria 1+ /hpf (NONE) H 11/28/23 09:12 Ethyl Alcohol 44 mg/dL (0-10) H 11/28/23 06:45 Blood Type O Positive 11/28/23 08:01 Rho(D) Type Rh positive 11/28/23 08:01 Antibody Screen Negative 11/28/23 08:01 Crossmatch See Detail 11/28/23 08:01 All radiology interpretation(s) finalized by discharge Critical Care Time 2 Critical Care Time: Critical Care Time: Yes Total Critical Care Time: 40 Attestation: The high probability of a clinically significant, sudden or life threatening deterioration of the patient's hematologic cardiovascular system(s) required my full and direct attention, intervention and personal management. The critical care time is as shown. This time is in addition to time spent performing any reported procedures but includes the following: [x] Data and vital sign review and interpretation [x] Patient assessment, examination and intervention [x] Documentation [x] Medication orders and management Discharge Plan Discharge Patient Disposition: Transfer to ED Clinical Impression: Alcoholism, Pancreatitis, Transaminitis, Alcohol dependence, Acute upper gastrointestinal bleeding, Portal vein thrombosis, Alcoholic cirrhosis of liver Condition: Stable Prescriptions: No Action No Known Home Medications Referrals: [facility], [Primary Care Provider] - Coding Level of Care Code 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
--- NOTE | 2023-11-28 07:29 | PC.PHAR ---
pt states she doesnt take any prescription medications or otc medications-pt states she is unsure how long its been since she has taken any medications-ext shows meds last filled 04/08/23 oxycodone 5mg q8h [id number] 5-325mg one tab po q6h prn filled 03/02/23 3d/s
[2023-11-28 07:39] LABS: HCG, Serum Qual Negative (Negative)
[2023-11-28] MEDS: sodium chloride 0.9% 1,000 ML 999 ML IV ×2 (07:44→10:32)
[2023-11-28] MEDS: ondansetron 2 mg/ML SDV 2 mL 4 MG IVP (07:44)
[2023-11-28 07:51] LABS: Alanine Aminotransferase 15 U/L (0-33); Albumin Level 2.5 g/dL (3.5-5.2); Alcohol Level 44 mg/dL (0-10); Alkaline Phosphatase 251 U/L (35-105); Anion Gap 15.7 (5-19); Aspartate Amino Transferase 42 U/L (0-32); Blood Urea Nitrogen 14 mg/dL (6-20); Calcium 7.7 mg/dL (8.5-10.5); Carbon Dioxide 22 mmol/L (22-29); Chloride 101 mmol/L (98-107); Creatinine Clr Calc Pharmacy 186.1021; Globulin 3.2 g/dL (1.3-4.6); Glomerular Filtration Rate 247.7 mL/min (90-130); Glucose 136 mg/dL (65-115); Lipase 284 U/L (13-60); Osmolality Calculated 283 mOsm/kg (285-295); Potassium 3.7 mmol/L (3.5-5.1); Sodium 135 mmol/L (136-145); Total Bilirubin 1.5 mg/dL (0.15-1.2); Total Protein 5.7 g/dL (6.6-8.7)
[2023-11-28] MEDS: pantoprazole 40 mg SDV 80 MG IVP (07:52)
[2023-11-28 07:57] LABS: Basophils % 0.1 %; Lymphocytes # 1.1 10^3/uL (0.8-4.8); Lymphocytes % 12.9 %; Mean Corpuscular HGB Conc 29.8 g/dL (30-55); Mean Corpuscular Hemoglobin 31.9 pg (27-33); Mean Corpuscular Volume 107.2 fl (85-98); Mean Platelet Volume 11.4 fL (7.4-10.4); Monocytes # 0.5 10^3/uL (0.2-0.9); Monocytes % 6.6 %; Neutrophils # 6.55 10^3/uL (1.8-7.7); Neutrophils % 79.9 %; Nucleated Red Blood Cells % 0 %; Platelet Count 226 10^3/cmm (157-399); Red Blood Count 1.66 10^6/uL (3.85-5.65); Red Cell Distribution Width 17.6 % (12.1-15.1)
--- NOTE | 2023-11-28 07:58 | CT_ITS ---
WS: [id number] Exam: CT abdomen pelvis w con* [id number] Date/Time of Exam: 11/28/2023 8:07 AM Reason For Exam: abd pain DLP: Comparison 09/16/2022. All CT scans at [facility] use at least one of these dose optimization techniques: automated e xposure control; mA and/or kV adjustment per patient size (includes targeted exams where dose is matc hed to clinical indication); or iterative reconstruction. Lower lung zones are clear. There are signs of acute pancreatitis. There are several small pancreatic pseudocysts identified. Dilatation of the pancreatic duct. The largest pseudocyst measures about 2.4 cm in greatest diameter. There is gastric wall thickening. There is debris in the stomach that may r epresent food or clotted blood. Extensive ascites in the abdomen and pelvis. No calcified stones in t he gallbladder. No hepatic ductal dilatation. The abdominal aorta is normal in caliber. Normal spleen and kidneys. Normal adrenals. The IVC and portal vein are patent. Marked bowel wall thickening of th e duodenum and several small bowel loops. Mild retroperitoneal lymphadenopathy. Unremarkable appendix visualized. Relatively large amount of ascites in the pelvis. Uterus and ovaries are unremarkable. M oderate distention of the urinary bladder which is otherwise intact. No pneumoperitoneum. Bony struct ures are intact. The abdominal wall is unremarkable. IMPRESSION: 1. Acute calf pancreatitis. Several pancreatic pseudocysts which are small. Dilated pancreatic duct. 2. Moderate amount of ascites in the abdomen and pelvis. 3. Wall thickening of the stomach and several small bowel loops. There is also debris in the stomach that may represent food or clotted blood. 4. Hepatic steatosis and findings suspicious for hepatic cirrhosis. Probable splenic varices.
[2023-11-28 07:59] LABS: Hematocrit 17.8 % (36-47)
[2023-11-28 08:08] LABS: Partial Thromboplastin Time 22.7 SECONDS (23.9-36.7)
[2023-11-28] MEDS: LORazepam 2 mg/mL INJ 10 mL MDV IVP (08:11)
[2023-11-28 08:19] LABS: Ammonia 13 umol/L (11-51)
[2023-11-28] MEDS: iohexol 350 mg/mL 500 mL Btl (per mL) IV (08:33)
[2023-11-28] MEDS: octreotide 100 mcg/mL SDV 50 MCG IVP (08:40)
[2023-11-28] MEDS: diphenhydrAMINE 50 mg/mL SDV 1mL 25 MG IVP (09:19)
--- NOTE | 2023-11-28 09:24 | PC.NURSE ---
Emergency blood obtained per Dr Pretty verbal order. Consent for blood signed per pt. Emergency release signed per nurse and physician. Blood started at 0922. Per lab, documentation on their side has been done that emergency blood was issued as well.
[2023-11-28 09:51] LABS: Add Urine Microscopic? YES; Bilirubin Urine Neg (Negative); Blood Urine Neg (Negative); Glucose Urine UA Norm (Normal); Ketones Urine Negative (Negative); Leukocyte Esterase Urine Negative (Negative); Nitrate Urine Negative (Negative); Protein Urine Trace (Negative); Specific Gravity, Urine 1.005 (1.005-1.030); Urine Appearance Hazy (CLEAR); Urine Color Yellow (Yellow); Urobilinogen Urine Neg (Negative); pH Urine 6.5 (5-7)
[2023-11-28 09:52] LABS: Add Urine Culture? No; Bacteria Urine 1+ /hpf; RBC Urine RARE /hpf (0-2); WBC Urine 0-4 /hpf (0-5)
[2023-11-28] MEDS: piperacillin-tazobactam 3.375 GM in sodium chloride 0.9% (plus) 50 ML IV (10:32)
[2023-11-28] MEDS: sodium chloride 0.9% 100 mL Bag 50 ML IV (10:33)
[2023-11-28] MEDS: tranexamic acid 1,000 MG/100 ML PREMIX 600 MG IV (10:33)
--- NOTE | 2023-11-28 10:41 | PC.NURSE ---
Zoysn, fluids, TXA, and FFP running and sent with EMS to finish in transport. Pt has a central line placed, and verification by Dr Pretty.
--- NOTE | 2023-11-28 11:02 | XR_ITS ---
WS: [id number] Exam: XR chest 1V portable [id number] Date/Time of Exam: 11/28/2023 11:03 AM Reason For Exam: LINE PL Comparison 11/28/2023 at 7:55 a.m. A RIGHT subclavian central line has been placed and appears to end at the cavoatrial junction. The unique ngs are clear and fully expanded. Normal cardiomediastinal silhouette and regional bony elements. IMPRESSION: 1. Negative chest. 2. RIGHT subclavian central line appears to end at the cavoatrial junction.
== END 2023-11-28 10:49 ==
PROVIDERS: Emergency Provider Family Medicine
DX: F10.20 Alcohol dependence, uncomplicated (principal); K85.90 Acute pancreatitis without necrosis or infection, unspecified; R74.01 Elevation of levels of liver transaminase levels; K92.2 Gastrointestinal hemorrhage, unspecified; I81 Portal vein thrombosis; K70.30 Alcoholic cirrhosis of liver without ascites
CPT/HCPCS: 36556; 71045; 74177; 80053; 80307; 81001; 82140; 83690; 84703; 85025; 85610; 85730; 86850; 86900; 86920; 86927; 93005; 96374; 96375; 99285; 99291; 99292; C9113; J1200; J2060; J2354; J2405; J2543; J7030; P9016; P9017; Q9967

== ENCOUNTER → 2024-03-14 15:59 | Outpatient (BNVA) | payer BC, MEDICAID, SELFPAY | DX: K85.90 Acute pancreatitis without necrosis or infection, unspecified (principal); F10.20 Alcohol dependence, uncomplicated; K92.2 Gastrointestinal hemorrhage, unspecified; F41.9 Anxiety disorder, unspecified; R11.0 Nausea; D69.6 Thrombocytopenia, unspecified | CPT/HCPCS: 80053; 82607; 83690; 84425; 85025; 85610 ==

== ENCOUNTER → 2024-03-27 14:43 | Outpatient (BNVA) | payer BC, MEDICAID, SELFPAY | PROVIDERS: Visit Provider Registered Nurse Neonatal Intensive Care | DX: R50.9 Fever, unspecified (principal); J06.9 Acute upper respiratory infection, unspecified | CPT/HCPCS: 87426 ==

== ENCOUNTER 2024-07-10 13:13 | Emergency (ER) | payer BC, SELFPAY ==
[2024-07-10 13:16] VITALS: BP 104/77; PULSE 76; RESP 14; O2SAT 96; BMI 20.7
--- NOTE | 2024-07-10 13:21 | XR_ITS ---
WS: [id number] XR chest 1V portable [id number] REASON FOR EXAM: seizure FINDINGS: The heart appears enlarged. The heart was well within normal limits on previous examination of . The upper left upper lobe veins appears somewhat prominent. No definite interstitial edema. No other acute pulmonary parenchymal or pleural abnormality is identi fied. The bony thorax is intact without significant abnormality. XR/XR chest 1V portable [id number] IMPRESSION: No definite acute chest abnormality. Patient appears to have developed cardiomegaly since the previous examination o f 11/28/2023. Left upper lobe pulmonary veins appear somewhat prominent.
--- NOTE | 2024-07-10 13:24 | W.ED.ALCOHOL ---
HPI - Alcohol General: Chief Complaint: Seizure Stated Complaint: Seizures x2 , ETOH Time Seen by Provider: 07/10/24 13:14 Source: patient and EMS Mode of arrival: EMS Limitations: other (intoxicated) History of Present Illness: Patient is a 38-year-old female who arrives to the ED today via EMS significantly intoxicated. According to EMS report, they were called by patient's family after two witnessed seizures while lying on a bed-did not fall/strike head. Family told EMS patient has a history of alcoholic seizures . Family reportedly told EMS that she is supposed to be taking Keppra however patient states she is not taking this medication. Upon arrival she clearly is intoxicated but is cooperative. She can tell me her name, date of , knows that she is at [facility] in [facility], and can tell me the two current presidential candidates up for election. She does endorse history of seizures. She has a long standing history of alcohol abuse. States she is not currently taking any prescription medication. MD complaint: alcohol intoxication Last drink: Hours (ago) Chronic alcohol use: Yes Previous visits for alcohol intoxication: Yes Recent trauma: No Associated symptoms: Reports no associated symptoms; Deny abdominal pain or vomiting Treatments prior to arrival: none Related Data Home Medications Medication Instructions Recorded Confirmed pantoprazole 40 mg tablet,delayed 40 mg PO DAILY 07/10/24 07/10/24 release Previous Rx's Medication Instructions Recorded fluoxetine 10 mg capsule 10 mg PO DAILY #30 caps 03/14/24 ondansetron 4 mg disintegrating 4 mg PO Q8H PRN Nausea #14 tabs 03/14/24 tablet ferrous sulfate 325 mg (65 mg 325 mg PO DAILY #30 tabs 03/16/24 iron) tablet levetiracetam 500 mg tablet 500 mg PO BID #60 tabs 07/10/24 (Keppra) Allergies Allergy/AdvReac Type Severity Reaction Status Date / Time No Known Allergies Allergy Verified 03/27/24 14:21 Review of Systems Const: Denies: fever(s) Eyes: Denies: change in vision Card: Denies: chest pain Resp: Denies: dyspnea GI: Denies: abdominal pain, vomiting or diarrhea Musc: Denies: neck pain, back pain, extremity pain, extremity swelling, joint pain or joint swelling Skin/Breast: Denies: rash Neuro: Denies: headache(s), numbness in extremities, weakness in extremities or sensory changes PFSH ED PFSH: Medical History Nausea Anxiety GI bleed Alcohol withdrawal seizure Acute alcoholic pancreatitis Alcohol abuse Thrombocytopenia Portal vein thrombosis Surgical History No pertinent past surgical history Family History Brother Liver failure Father Stroke Heart disease Diabetes Mother Stroke Social History Smoking and tobacco/nicotine status: current every day tobacco/nicotine user Alcohol intake: current Alcohol intake frequency: few times a month Alcohol type: hard liquor Substance/Drug Use: current Household members: significant other Housing: House 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, 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 Physical Exam Const: COMMON NORMALS: average body habitus, patient oriented x3, healthy appearing, alert and well nourished GENERAL APPEARANCE: cooperative and odor of alcohol detected ORIENTATION/CONSCIOUSNESS: Yes awake, Yes oriented to person, Yes oriented to place and Yes oriented to time HENMT: COMMON NORMALS: normocephalic and atraumatic HEAD & SCALP: normal to inspection, normocephalic and atraumatic FACE & SINUS: normal facial exam Resp: COMMON NORMALS: normal respiratory effort and clear to auscultation bilaterally AUSCULTATION: clear to auscultation bilaterally Cardio: COMMON NORMALS: regular rate and regular rhythm RATE: regular rate RHYTHM: regular rhythm GI: COMMON NORMALS: Normal to inspection, nondistended, normoactive bowel sounds present, Soft to palpation and non-tender PALPATION: Yes Soft to palpation Extremity: GENERAL: Yes normal exam except as noted Neuro: LIAM COMA SCALE: document GCS findings Liam coma scale eye opening: Spontaneous Liam coma scale verbal response: Orientated [place] coma scale motor response: Obey commands Liam coma scale total score: 15 COMMON NORMALS: patient oriented x3, moves all extremities, no focal motor deficits and no sensory deficits noted SENSORIUM/ORIENTATION: Yes alert, Yes oriented to person, Yes oriented to place and Yes oriented to time Skin: COMMON NORMALS: no rashes or lesions noted GENERAL SKIN EXAM: no rashes or lesions noted Course Vital Signs: Vital signs: Vital Signs Pulse Rate 76 07/10/24 13:16 Respiratory Rate 14 07/10/24 13:16 Blood Pressure 104/77 07/10/24 13:16 Pulse Oximetry 96 07/10/24 13:16 Oxygen Delivery Me thod Room Air 07/10/24 13:16 MDM - Alcohol Medical Decision Making Patient has remained stable throughout her emergency department stay. Her vitals are unremarkable. She has no physical complaints. Blood work overall is nonactionable. Tox screen is negative. Her alcohol is 475. She is surprisingly very well-functioning for this high of an alcohol level. She is able to easily carry a conversation with me without slurring. She is ambulatory in her room with a steady gait. Patient wants to go home. According to her initial EMS report, family witnessed two seizures at home. It would be unlikely these are alcoholic withdrawal seizures with an alcohol of 475. She states she has never seen a neurologist for seizures. She states her brother had a history of epilepsy. She used to take Keppra but no longer is on this medication for unknown reasons. She was given a 1g loading dose and will be placed back on this medication. CM referral placed for neurology. She was instructed to return to the emergency department for any further seizure activity. I would also like her to follow up with her PCP. Medical Records I reviewed the patient's medical records. Lab Data I reviewed the patient's lab results. 07/10/24 13:38 07/10/24 13:38 Radiology Impressions Chest X-Ray 07/10/24 13:21 IMPRESSION: No definite acute chest abnormality. Patient appears to have developed cardiomegaly since the previous examination of 11/28/2023. Left upper lobe pulmonary veins appear somewhat prominent. Laboratory Results WBC 4.31 10^3/uL (3.29-11.43) 07/10/24 13:38 RBC 4.18 10^6/uL (3.85-5.65) 07/10/24 13:38 Hgb 14.40 g/dL (11.27-16.99) 07/10/24 13:38 Hct 43.7 % (36-47) 07/10/24 13:38 MCV 104.5 fl (85-98) H 07/10/24 13:38 MCH 34.4 pg (27-33) H 07/10/24 13:38 MCHC 33.0 g/dL (30-55) 07/10/24 13:38 RDW 17.2 % (12.1-15.1) H 07/10/24 13:38 Plt Count 258 10^3/cmm (157-399) 07/10/24 13:38 MPV 10.2 fL (7.4-10.4) 07/10/24 13:38 Neut % (Auto) 39.5 % 07/10/24 13:38 Lymph % (Auto) 47.8 % 07/10/24 13:38 [place] % (Auto) 6.7 % 07/10/24 13:38 Eos % (Auto) 3.7 % 07/10/24 13:38 Baso % (Auto) 2.1 % 07/10/24 13:38 Neut # (Auto) 1.70 10^3/uL (1.8-7.7) L 07/10/24 13:38 Lymph # (Auto) 2.1 10^3/uL (0.8-4.8) 07/10/24 13:38 [place] # (Auto) 0.3 10^3/uL (0.2-0.9) 07/10/24 13:38 Eos # (Auto) 0.2 10^3/uL (0.0-0.8) 07/10/24 13:38 Baso # (Auto) 0.1 10^3/uL (0.0-0.1) 07/10/24 13:38 Nucleated RBC % (auto) 0 % 07/10/24 13:38 Nucleated RBCs # 0.0 /100WBC 07/10/24 13:38 Sodium 150 mmol/L (136-145) H 07/10/24 13:38 Potassium 3.6 mmol/L (3.5-5.1) 07/10/24 13:38 Chloride 108 mmol/L (98-107) H 07/10/24 13:38 Carbon Dioxide 25 mmol/L (22-29) 07/10/24 13:38 Anion Gap 20.6 (5-19) H 07/10/24 13:38 BUN 4 mg/dL (6-20) L 07/10/24 13:38 Creatinine 0.4 mg/dL (0.5-0.9) L 07/10/24 13:38 GFR Calculation 177.7 mL/min (90-130) H 07/10/24 13:38 Glucose 88 mg/dL (65-115) 07/10/24 13:38 Calculated Osmolality 306 mOsm/kg (285-295) H 07/10/24 13:38 Calcium 7.9 mg/dL (8.5-10.5) L 07/10/24 13:38 Total Bilirubin 0.3 mg/dL (0.15-1.2) 07/10/24 13:38 AST 74 U/L (0-32) H 07/10/24 13:38 ALT 41 U/L (0-33) H 07/10/24 13:38 Alkaline Phosphatase 218 U/L (35-105) H 07/10/24 13:38 Total Protein 7.5 g/dL (6.6-8.7) 07/10/24 13:38 Albumin 3.7 g/dL (3.5-5.2) 07/10/24 13:38 Globulin 3.8 g/dL (1.3-4.6) 07/10/24 13:38 HCG, Qual Negative (Negative) 07/10/24 13:38 Urine Color Yellow (Yellow) 07/10/24 14:26 Urine Appearance Clear (CLEAR) 07/10/24 14:26 Urine pH 7.0 (5-7) 07/10/24 14:26 Ur Specific [place] 1.006 (1.005-1.030) 07/10/24 14:26 Urine Protein Negative (Negative) 07/10/24 14:26 Urine Glucose (UA) Negative (Normal) 07/10/24 14:26 Urine Ketones Negative (Negative) 07/10/24 14:26 Urine Blood Negative (Negative) 07/10/24 14:26 Urine Nitrate Negative (Negative) 07/10/24 14:26 Urine Bilirubin Negative (Negative) 07/10/24 14:26 Urine Urobilinogen 1.0 mg/dL (Negative) 07/10/24 14:26 Ur Leukocyte Esterase Negative (Negative) 07/10/24 14:26 Urine RBC 0-2 /hpf (0-2) 07/10/24 14:26 Urine WBC 6-10 /hpf (0-5) 07/10/24 14:26 Ur Squamous Epith Cells 0-5 /hpf (0-5) 07/10/24 14:26 Amorphous Sediment Not Reportable 07/10/24 14:26 Urine Bacteria None seen /hpf (NONE) 07/10/24 14:26 Hyaline Casts 0.40 /lpf 07/10/24 14:26 Urine Opiates Screen Negative ng/mL (Negative) 07/10/24 14:26 Ur Barbiturates Screen Negative ng/mL (Negative) 07/10/24 14:26 Ur Phencyclidine Scrn Negative ng/mL (Negative) 07/10/24 14:26 Ur Amphetamines Screen Negative ng/mL (Negative) 07/10/24 14:26 U Benzodiazepines Scrn Negative ng/mL (Negative) 07/10/24 14:26 Urine Cocaine Screen Negative ng/mL (Negative) 07/10/24 14:26 U Marijuana (THC) Screen Negative ng/mL (Negative) 07/10/24 14:26 Ethyl Alcohol 475 mg/dL (0-10) H* 07/10/24 13:38 All radiology interpretation(s) finalized by discharge Discharge Plan Discharge Patient Disposition: Home Clinical Impression: Chronic alcohol abuse, Seizures Acute alcohol intoxication Qualifiers: Complication of substance-induced condition: uncomplicated Qualified Code(s): F10.920 - Alcohol use, unspecified with intoxication, uncomplicated Condition: Stable Prescriptions: New levetiracetam [Keppra] 500 mg tablet 500 mg PO BID Qty: 60 0RF Rx Instructions: Can increase to 2 tabs BID after two weeks. No Action fluoxetine 10 mg capsule 10 mg PO DAILY Qty: 30 0RF ondansetron 4 mg tablet,disintegrating 4 mg PO Q8H PRN (Reason: Nausea) Qty: 14 0RF ferrous sulfate 325 mg (65 mg iron) tablet 325 mg PO DAILY Qty: 30 2RF pantoprazole 40 mg tablet,delayed release (DR/EC) 40 mg PO DAILY Discharge Orders: Discharge ED (Routine); Ordered 07/10/24 Ordered By: Ceci Akins Referrals: Julieth Hinton, [employer] [Primary Care Provider] - Patient Instructions: Alcohol Intoxication (DC), Abuse of Alcohol (DC), Seizures Activity Restrictions/Additional Instructions: As we have discussed, I am placing you back on your Keppra. We will need to have you follow-up with neurology. I will also have you follow-up with primary care. You have opted to go home from the emergency department today. You need to return to the emergency department for any further seizure activity. Coding Level of Care Code ED Assistant Press Operator for Kamron Dietrich
--- NOTE | 2024-07-10 13:30 | PC.PHAR ---
patient said she takes the fluoxitine 10mg however last filled 03/14/24 30 days so she should be out
[2024-07-10 13:58] LABS: Basophils # 0.1 10^3/uL (0.0-0.1); Basophils % 2.1 %; Eosinophils # 0.2 10^3/uL (0.0-0.8); Eosinophils % 3.7 %; Hematocrit 43.7 % (36-47); Lymphocytes # 2.1 10^3/uL (0.8-4.8); Lymphocytes % 47.8 %; Mean Corpuscular Hemoglobin 34.4 pg (27-33); Mean Corpuscular Volume 104.5 fl (85-98); Mean Platelet Volume 10.2 fL (7.4-10.4); Monocytes # 0.3 10^3/uL (0.2-0.9); Monocytes % 6.7 %; Neutrophils % 39.5 %; Nucleated Red Blood Cells % 0 %; Platelet Count 258 10^3/cmm (157-399); Red Blood Count 4.18 10^6/uL (3.85-5.65); Red Cell Distribution Width 17.2 % (12.1-15.1); White Blood Count 4.31 10^3/uL (3.29-11.43)
[2024-07-10 14:00] VITALS: BP 127/82; PULSE 73; O2SAT 95
[2024-07-10] MEDS: sodium chloride 0.9% 1,000 ML 999 ML IV (14:11)
[2024-07-10 14:19] LABS: HCG, Serum Qual Negative (Negative)
[2024-07-10 14:23] LABS: Alanine Aminotransferase 41 U/L (0-33); Albumin Level 3.7 g/dL (3.5-5.2); Alkaline Phosphatase 218 U/L (35-105); Anion Gap 20.6 (5-19); Aspartate Amino Transferase 74 U/L (0-32); Blood Urea Nitrogen 4 mg/dL (6-20); Calcium 7.9 mg/dL (8.5-10.5); Carbon Dioxide 25 mmol/L (22-29); Chloride 108 mmol/L (98-107); Creatinine Clr Calc Pharmacy 144.9851; Globulin 3.8 g/dL (1.3-4.6); Glomerular Filtration Rate 177.7 mL/min (90-130); Glucose 88 mg/dL (65-115); Osmolality Calculated 306 mOsm/kg (285-295); Potassium 3.6 mmol/L (3.5-5.1); Sodium 150 mmol/L (136-145); Total Bilirubin 0.3 mg/dL (0.15-1.2); Total Protein 7.5 g/dL (6.6-8.7)
[2024-07-10 14:24] LABS: Alcohol Level 475 mg/dL (0-10)
[2024-07-10 14:30] VITALS: BP 103/86; PULSE 73; O2SAT 95
[2024-07-10 14:38] LABS: Bilirubin Urine Negative (Negative); Blood Urine Negative (Negative); Glucose Urine UA Negative (Normal); Ketones Urine Negative (Negative); Leukocyte Esterase Urine Negative (Negative); Nitrate Urine Negative (Negative); Protein Urine Negative (Negative); Specific Gravity, Urine 1.006 (1.005-1.030); Urine Appearance Clear (CLEAR); Urine Color Yellow (Yellow)
[2024-07-10 14:40] LABS: Add Urine Microscopic? YES; Amphetamines Screen Urine Negative (Negative); Bacteria Urine None Seen /hpf; Barbiturates Screen Urine Negative (Negative); Benzodiazepines Screen Urine Negative (Negative); Cocaine Screen Urine Negative (Negative); Opiate Screen Urine Negative (Negative); PCP Screen Urine Negative (Negative); RBC Urine 0-2 /hpf (0-2); Squamous Epithelial Cell Urine 0-5 /hpf (0-5); THC Screen Urine Negative (Negative)
[2024-07-10] MEDS: levETIRAcetam 1,000 MG/100 ML PREMIX 400 MG IV (14:51)
--- NOTE | 2024-07-11 07:54 | DCPLANNER ---
Message sent to Neurology for follow up-
== END 2024-07-10 15:46 | disposition home or self-care (01) ==
PROVIDERS: Emergency Provider Physician Assistant
DX: F10.129 Alcohol abuse with intoxication, unspecified (principal); Y90.8 Blood alcohol level of 240 mg/100 ml or more
CPT/HCPCS: 36415; 71045; 80053; 80306; 80307; 81001; 84703; 85025; 96365; 99284; J1953; J7030